=== PATIENT | female | born 1950 | race Caucasian/White ===

== ENCOUNTER 2018-09-03 17:06 | Inpatient (IN) | payer OTHER, SELFPAY ==
[2018-09-03] VITALS (12 sets, daily range): BP systolic 94–116; BP diastolic 66–84; PULSE 92–143; RESP 18–36; TEMP 36.8–37.2; O2SAT 84–95; BMI 25.2; BMI 25.4
--- NOTE | 2018-09-03 17:22 | RAD_ITS ---
STUDY: X-RAY CHEST REASON FOR EXAM: Female, 67 years old. Cough and shortness of breath. TECHNIQUE: 2 views COMPARISON: None. FINDINGS: Lung martinez are generally hyperexpanded with diffuse interstitial changes more prominent in the mid and lower lung zones. Negative for major consolidation. Negative for substantial pleural effusion. Cardiomegaly. Normal mediastinum and rosa. Normal visualized pulmonary arteries. There is atherosclerotic calcification of the aortic arch with tortuosity. There is demineralization of the osseous structures. Increased thoracic kyphosis. Normal visualized ribs, clavicles, and shoulders. There is no demonstrated abnormality of the visualized soft tissue structures of the upper abdomen. RAD/Chest PA and Lateral IMPRESSION: Cardiomegaly with diffuse mild interstitial changes of an acute or chronic nature without pulmonary venous congestion or pleural effusion. Otherwise negative for major consolidation or focal atelectasis. Atherosclerotic changes of the thoracic aorta. Severely demineralized osseous structures and increased thoracic kyphosis. Electronically Signed: Renita Shane MD at 18:40 EST , Service support ,
--- NOTE | 2018-09-03 17:22 | EKG12_ITS ---
Test Reason : SOB Blood Pressure : / mmHG Vent. Rate : 140 BPM Atrial Rate : 136 BPM P-R Int : 000 ms QRS Dur : 084 ms QT Int : 272 ms P-R-T Axes : 000 038 151 degrees QTc Int : 415 ms Atrial fibrillation with rapid ventricular response Nonspecific ST and T wave abnormality Abnormal ECG No previous ECGs available Confirmed by CITLALI BULLOCK, MIMI ([id number]), editor in chief newspaper CALIN MILLER ([id number]) on 09/14/2018 5:32:59 PM Referred By: Bela Khanna Confirmed By:MIMI GODWIN MD
--- NOTE | 2018-09-03 17:38 | ED.VISSUMM ---
- ER Visit Summary Date of Service: 09/03/18 Chief Complaint: Cough and shortness of breath History of Present Illness: The patient is a 67 F who presents with cough and shortness of breath that has been getting worse over the past 3 days. Patient states her breathing is worse with any exertion. Patient admits to a cough with some white sputum. Patient also admits to some rhinorrhea. Patient denies any fevers or chills. Patient denies any chest pain. Patient denies any nausea or vomiting. Patient denies any sore throat or rhinorrhea. Patient saw her primary care physician today who referred her to the emergency department. Physical Examination: Vital signs are stable except for tachycardia of 137 and a blood pressure of 94/66. Patient's pulse oximeter is 84% on room air. Patient is in no acute distress. Oral mucosa is pink and moist. Neck is supple. Trachea is midline. There is no JVD noted. Heart was irregularly irregular and tachycardic. Lungs showed bilateral rales. Abdomen is soft and nontender. Bowel sounds are normal. Extremities are intact. There is no edema or calf tenderness noted. Hernial nerves II through XII are intact. There are no focal motor or sensory deficits noted. The remaining physical exam is within normal limits. Test Results: Chest x-ray shows interstitial changes without any definite infiltrate. CBC shows a leukocytosis of 32.8. Lactate was slightly elevated at 2.2. Basic metabolic profile was essentially within normal limits. EKG showed atrial fibrillation with a rate of 140. There are no acute ST or T wave changes. Emergency Department Course and Treatment: Patient was given a 30 cc/kg bolus of normal saline. Patient was started on Levaquin. Case was discussed with the hospitalist. She will be in to evaluate the patient. Patient will be admitted to the hospital. Patient and family understood and were agreeable with the plan. All questions were answered. Disposition: Admit to hospital Impression: 1. Severe sepsis 2. Clinical pneumonia This note was generated with Query Hunteration software. It may contain incorrect words, spelling, and punctuation that were not noted in review of the chart prior to signing Capacity - Capacity Assessment Tool Can the patient make a choice & communicate that choice?: Yes Can the patient understand benefits, risks and alternatives?: Yes Can the patient make a logical, rational choice?: Yes Is the choice the patient makes consistent w/ their values?: Yes Is there an impending, emergent risk to the patient?: No Is there a Surrogate Available?: Yes i.e. close relative (spouse, child, parent, sibling)?: Yes ED Disposition - Plan for ED Patient: Disposition: Acute Care Hospital [facility] Diagnosis: Severe sepsis, Community acquired pneumonia Referrals: Lobo Spann [Primary Care Provider] -
[2018-09-03] MEDS: 0.9% Normal Saline 1,000 ML IV.SOLN. 1877.88 ML IV (18:08)
[2018-09-03 18:57] LABS: ALB/GLOB Ratio 0.8 RATIO (0.9-2.4); AST(SGOT) 28 U/L (15-37); Alanine Aminotransfer ALT/SGPT 25 U/L (13-56); Albumin, Serum 3.6 g/dL (3.2-5.0); Alkaline Phosphatase 121 U/L (45-117); Anion Gap 10 (5-15); BUN 32 mg/dL (7-18); BUN/Creat Ratio 36.1 RATIO (10-20); Calcium,Total 8.7 mg/dL (8.5-10.1); Chloride 102 mmol/L (98-107); Creatinine, Serum 0.89 mg/dL (0.55-1.02); EST Glomerular Filtration Rate 67 mL/min (>60); Est Glom Filt Rate - Afr Amer 82 mL/min (>60); Estimated Creatinine Clearance 48.51 ml/min; Globulin 4.3 g/dL (2.2-4.2); Glucose 109 mg/dL (74-106); Protein, Total 7.9 g/dL (6.4-8.2); Sodium Level 136 mmol/L (136-145)
[2018-09-03 18:58] LABS: Absolute Lymphocyte Count 1.56 X10^3/ul (0.83-4.51); Absolute Neutrophil Count 29.2 X10^3/uL (2.0-7.7); Basophil% 0.3 % (0-1); Eosinophil# 0.02 X10^3/uL; Eosinophils% 0.1 % (0-5); Hematocrit 41.4 % (37-47); Hemoglobin 11.6 g/dl (12.0-15.0); Lymphocyte # 1.56 X10^3/ul (4.0); Lymphocyte % 4.8 % (19-41); Mean Corpuscular Hgb 21.7 pg (27.0-32.0); Mean Corpuscular Volume 77.5 fL (81-99); Mean Platelet Vol. 11.4 fl (6.2-12.0); Monocyte# 1.63 X10^3/uL; Neutrophil # 29.22 X10^3/uL (2.7-7.7); Neutrophil % 88.9 % (47-70); Platelet Count 512 K/mm3 (150-450); RBC Distribution Width CV 18.5 % (11.6-14.6); RBC Distribution Width SD 50.6 fl (35.1-43.9); Red Blood Count 5.34 M/mm3 (4.2-5.4)
--- NOTE | 2018-09-03 18:59 | ED.RN ---
WBC 32.[address] DR ALDRICH AWARE
[2018-09-03 19:01] LABS: Differential Indicated SCAN CRITERIA MET; POSITIVE COUNT YES; POSITIVE DIFFERENTIAL YES; POSITIVE MORPHOLOGY YES; White Blood Count 32.8 K/mm3 (4.4-11.0)
[2018-09-03 19:02] LABS: Lactic Acid 2.2 mmol/L (0.4-2.0)
--- NOTE | 2018-09-03 19:03 | ED.RN ---
DR ALDRICH NOTIFIED OF LACTIC ACID RESULTS
[2018-09-03 19:36] LABS: Anisocytosis 1+; Hypochromasia 2+; Platelet Estimate SLT INC (ADEQ)
--- NOTE | 2018-09-03 19:40 | PCM.HP.STD ---
Problem List (1) Severe sepsis Status: Acute (2) Acute respiratory failure with hypoxia Status: Acute (3) Community acquired pneumonia Status: Acute Qualifiers: Laterality: unspecified laterality Qualified Code(s): J18.9 - Pneumonia, unspecified organism (4) Chronic atrial fibrillation Status: Chronic (5) History of GI bleed Status: Chronic (6) Polycythemia Status: Chronic History of Present Illness Date of Admission: 09/03/18 Chief Complaint: Dyspnea, cough, fatigue The patient is a 67 y/o F w/ PMHx: Chronic atrial fibrillation previously on coumadin but history of GI Bleed 1 year prior w/ discontinuation, Polycythemia following w/ Dr. Neves w/ blood draw q 4 weeks next due Friday who presents to the [facility] ED on 09/03/18 with history of progressively worsening cough congestion and dyspnea as well as fatigue and malaise with fevers and chills progressively worsening over the last 3 days with evaluation per her primary care physician on day of ED presentation and referral to the ED. The ED workup included T 99, heart rate 137, respiratory rate initially 22-27 with 84% on room air with improvement to--> 84% on 4 L nasal cannula, CBC with WBC 32.8, hemoglobin 11.6, platelet 512 with left shift, coags pending, CMP with BUN/Cr 32/0/89, glucose 109, lactic acid 2.2, total bilirubin 1.10, alk phos 121, EKG with chronic atrial fibrillation with increased rate, rapid influenza negative, blood culture x2 pending per ED, chest x-ray with cardiomegaly with diffuse mild interstitial changes unclear if acute versus chronic without pulmonary venous congestion or pleural effusions with no obvious consolidation with severely demineralized osseous structures and increased thoracic kyphosis. Given patient presentation and examination with bilateral coarse rhonchorous breath sounds, decreased bases, turning pulmonary appearance treated as clinical pneumonia severe sepsis with administration of Levaquin, Tylenol, normal saline 30 mg/kg bolus in the ED. Past Medical History Past Medical History (Chronic Problems): Chronic Problems Chronic atrial fibrillation (Chronic) History of GI bleed (Chronic) Polycythemia (Chronic) Allergies No Known Allergies Allergy (Verified 09/03/18 17:09) Home Medications: Ambulatory Orders Medication Instructions Recorded Cbd Oil 1 each PO DAILY 09/03/18 Furosemide [Lasix] 20 mg PO DAILY 09/03/18 [place] 1 each PO DAILY 09/03/18 Hydroxyurea 500 mg PO DAILY 09/03/18 Menopause Formula 1 each PO DAILY 09/03/18 Metoprolol Tartrate [Lopressor 50 mg PO BID 09/03/18 (beta pippa)] [place]-3 2 cap PO BID 09/03/18 Ubidecarenone 1 cap PO DAILY 09/03/18 Vitamin E 1 each PO DAILY 09/03/18 Surgical History: - - Hysterotomy with bilateral salpingo-oophorectomy. Psychiatric History: No pertinent psych hx [employer] History: uterine fibroids - History of uterine fibroids status post hysterectomy with bilateral salpingo-nephrectomy. Lives: With Family Smoking Status: Never smoker Tobacco Use: Non-smoker Alcohol: None Drugs: None - *Family History Maternal History Items: - - Patient notes a maternal family history of heart disease, ID with at 89 secondary to sequelae of massive ID. Paternal History Items: - - Patient notes a paternal family history of heart disease. Review of Systems Constitutional: Reports: Anorexia, Chills, Fever, Malaise, Weakness, Fatigue. Denies: Weight Change HEENT: Reports: Nasal Congestion, Post Nasal Drip, Sinus Congestion, Sinus Drainage, Sore Throat. Denies: Head Aches Cardiovascular: Denies: Chest Pain, Palpitations Respiratory: Reports: Cough, Shortness of Breath, Shortness of breath at rest, Shortness of breath upon exertion, Sputum production. Denies: Wheezing Gastrointestinal: Denies: Abdominal Pain, Nausea, Vomiting Genitourinary: Denies: Dysuria Musculoskeletal: Reports: Joint Pain. Denies: Joint Tenderness Skin: Denies: Rash, Wounds Neurological: Denies: Numbness, Tingling, Focal weakness Psychiatric: Denies: Anxiety, Depression, Homicidal Ideations, Suicidal Ideations Hematologic/ Lymphatic: Reports: Anemia. Denies: Easy Bruising, Easy Bleeding VTE Information - Inpt Only VTE Present on Admission: No VTE Mechan Device Prophylaxis: SCD's VTE Pharm Prophylaxis ordered?: Yes Patient Problems: Active and Suspected Problems Severe sepsis (Acute) Community acquired pneumonia (Acute) Acute respiratory failure with hypoxia (Acute) Subjective: Seated upright in the ED bed, fatigued appearance, improved from initial presentation with decreased respiratory rate although still tachycardic, no current accessory muscle usage but was noted to be using accessory muscles upon initial presentation. Objective: Physical Examination: General: awake, alert, oriented x 3 and cooperative, seated upright in the ED bed fatigued, ill-appearing, notes improved since initial presentation although still notably tachycardic but respiratory rate has improved and patient has less accessory muscle usage. Skin: normal color, turgor, no icterus, cyanosis. HEENT: AT/NC, EOMI, PERRLA, dry MM, no carotid bruits or JVD noted. Lungs: Diminished breath sounds throughout, greater bilateral bases, coarse, rhonchorous right greater than left, increased effort although respiratory rate decreased from prior, improved but still ongoing mild accessory muscle usage, no wheezing. Heart: Regular, tachycardic; no gallop, rub audible. Abdomen: soft, NTTP, ND, normal BS, no HSM. Extremities: no cyanosis, clubbing, or edema. Neurological: patient awake, alert, oriented x 3; cognitive function intact; pupils equally reactive to light and accomodation; cranial nerves II-XII grossly normal, moving all 4 extremities, no focal deficits, strength severely globally decreased secondary to acute presentation. Psychiatric: affect appears fatigued, ill-appearing, no acute evidence of depressive or anxiety feelings. - Physical Exam Vital Signs Temp Pulse Resp BP Pulse Ox 99 F 119 H 36 H 111/79 95 09/03/18 19:00 09/03/18 19:00 09/03/18 19:00 09/03/18 19:00 09/03/18 19:00 Oxygen Flow Rate (L/min) 4 Oxygen Delivery Method Nasal Cannula Weight: 138 lb Body Mass Index (BMI) 25.2 Microbiology Past 72 Hours 09/03/18 18:23 Influenza Types A,B Direct FA (COLIN) - Final Mucosa - Nasopharyngeal Laboratory Tests Past 24 Hrs 09/03/18 09/03/18 09/03/18 18:10 18:15 18:15 WBC 32.8 H* RBC 5.34 Hgb 11.6 L Hct 41.4 MCV 77.5 L MCH 21.7 L MCHC 28.0 L RDW 18.5 H RDW Differential 50.6 H Plt Count 512 H MPV 11.4 Immature Gran % (Auto) 0.900 Neut % (Auto) 88.9 H Lymph % (Auto) 4.8 L [place] % (Auto) 5.0 Eos % (Auto) 0.1 Baso % (Auto) 0.3 Absolute Neuts (auto) 29.2 H Absolute Lymphs (auto) 1.56 Total Counted Not Reportable Differential Comment Diff Path Review May foll Platelet Estimate SLT INC Hypochromasia 2+ Anisocytosis 1+ PT Pending INR Pending APTT Pending Sodium Potassium Chloride Carbon Dioxide Anion Gap BUN Creatinine Estim Creat Clear Calc Est GFR (MDRD) Af Amer Est GFR (MDRD) Non-Af BUN/Creatinine Ratio Glucose Lactic Acid 2.2 H Calcium Total Bilirubin AST ALT Alkaline Phosphatase Total Protein Albumin Globulin Albumin/Globulin Ratio 09/03/18 18:15 WBC RBC Hgb Hct MCV MCH MCHC RDW RDW Differential Plt Count MPV Immature Gran % (Auto) Neut % (Auto) Lymph % (Auto) [place] % (Auto) Eos % (Auto) Baso % (Auto) Absolute Neuts (auto) Absolute Lymphs (auto) Total Counted Differential Comment Diff Path Review Platelet Estimate Hypochromasia Anisocytosis PT INR APTT Sodium 136 Potassium 4.0 Chloride 102 Carbon Dioxide 24.0 Anion Gap 10 BUN 32 H Creatinine 0.89 Estim Creat Clear Calc 48.51 Est GFR (MDRD) Af Amer 82 Est GFR (MDRD) Non-Af 67 BUN/Creatinine Ratio 36.1 H Glucose 109 H Lactic Acid Calcium 8.7 Total Bilirubin 1.10 H AST 28 ALT 25 Alkaline Phosphatase 121 H Total Protein 7.9 Albumin 3.6 Globulin 4.3 H Albumin/Globulin Ratio 0.8 L Assessment/Plan All Active Problems Severe sepsis (Acute) Community acquired pneumonia (Acute) Acute respiratory failure with hypoxia (Acute) The patient is a 67 y/o F w/ PMHx: Chronic atrial fibrillation previously on coumadin but history of GI Bleed 1 year prior w/ discontinuation, Polycythemia following w/ Dr. Neves w/ blood draw q 4 weeks next due Friday who presents to the [facility] ED on 09/03/18 with history of progressively worsening cough congestion and dyspnea as well as fatigue and malaise with fevers and chills progressively worsening over the last 3 days with evaluation per her primary care physician on day of ED presentation and referral to the ED. The (1) Acute Severe Sepsis secondary to Acute Hypoxic Respiratory Failure secondary to Community Acquired Pneumonia, Possible Bronchitis: ED workup included T 99, heart rate 137, respiratory rate initially 22-27 with 84% on room air with improvement to--> 84% on 4 L nasal cannula, CBC with WBC 32.8, hemoglobin 11.6, platelet 512 with left shift, coags pending, CMP with BUN/Cr 32/0/89, glucose 109, lactic acid 2.2, total bilirubin 1.10, alk phos 121, EKG with chronic atrial fibrillation with increased rate, rapid influenza negative, blood culture x2 pending per ED, chest x-ray with cardiomegaly with diffuse mild interstitial changes unclear if acute versus chronic without pulmonary venous congestion or pleural effusions with no obvious consolidation with severely demineralized osseous structures and increased thoracic kyphosis. Given patient presentation and examination with bilateral coarse rhonchorous breath sounds, decreased bases, turning pulmonary appearance treated as clinical pneumonia severe sepsis with administration of Levaquin, Tylenol, normal saline 30 mg/kg bolus in the ED. Will admit to PCU given ill presentation for more close monitoring, maintain on oxygen with wean as tolerated to room air, continue ATC duonebs, PRN albuterol, maintained on IV Rocephin and Azithromycin, HOB, IS parameters w/ pending sputum cultures and urine antigens as well as respiratory viral panel. Bld cx x 2 obtained in the ED. Will need to obtain oxygenation trial for discharge planning once appropriate. PT, OT, CM consulted for discharge planning. (2) Chronic Atrial Fibrillation: Technically rate uncontrolled initially, improved w/ IVFs, continue home metoprolol, PRN lopressor, not anticoagulated secondary to history of GI bleed, continue asa only. (3) Polycythemia: Admission CBC with WBC 32.8, hemoglobin 11.6, platelet 512 with left shift, following w/ Dr. Neves w/ blood draw q 4 weeks next due Friday, trend CBC. (4) DVT Prophylaxis: SCDs, lovenox. Code Visit Inpatient E&M: 60934 Init Hosp L3
[2018-09-03 19:47] LABS: International Normalized Ratio 1.3; Prothrombin Time (Protime)PT. 16.4 SECONDS (11.7-14.9)
[2018-09-03 19:48] LABS: Partial Thromboplast Time 43.3 Seconds (24.1-36.2)
[2018-09-03] MEDS: levoFLOXacin IV 750 MG/150 ML BAG 150 MG IV (19:52)
[2018-09-03 20:51] LABS: Magnesium 1.9 mg/dL (1.6-2.6)
[2018-09-03 21:40] LABS: Bacteria 0 SEEN /hpf (None Seen); Mucous, Urine 0 SEEN /hpf (<or=2+); Red Blood Cells-Urine 0 SEEN /hpf (0-5)
[2018-09-03 21:44] LABS: Color, Urine Yellow (Yellow); Glucose, Dipstick Normal (Normal); Ketone-Dipstick 15 mg/dl (Negative); Leukocyte Esterase-Dipstick 500 /ul (Negative); Nitrite-Dipstick Negative (Negative); Occult Blood-Urine 10 /ul (Negative); Protein-Dipstick 100 mg/dl (Negative); Specific Gravity, Urine 1.025 (1.002-1.030); Urine Clarity Clear (Clear); Urine Urobilinogen 1 mg/dl (Normal)
[2018-09-03 21:52] LABS: Urine Bilirubin Dipstick 1 mg/dL (Negative)
[2018-09-03] MEDS: Ipratropium/Albuterol Sulfate 3 ML AMPUL.NEB INHALATION (21:55)
[2018-09-03 22:01] LABS: White Blood Cells 10-25 SEEN /hpf (0-5)
[2018-09-03 22:02] LABS: Hyaline Cast 5-10 SEEN /lpf (0-5); Squamous Epithelial Cells - UA 0-5 SEEN /hpf (5-10)
[2018-09-03] MEDS: Metoprolol Tartrate 50 MG Tablet PO (22:20)
[2018-09-03] MEDS: guaiFENesin 1,200 MG Tablet 1200 MG PO (22:20)
[2018-09-03] MEDS: 0.9% Normal Saline 1,000 ML 125 ML IV (22:20)
[2018-09-03 22:21] LABS: Reflex Lactate? Y
[2018-09-03] MEDS: Famotidine 20 MG Tablet PO (22:21)
[2018-09-03 23:43] LABS: Lactic Acid 1.5 mmol/L (0.4-2.0)
[2018-09-04] VITALS (21 sets, daily range): BP systolic 98–114; BP diastolic 64–76; PULSE 76–151; RESP 16–28; TEMP 36.4–36.8; O2SAT 94–97
[2018-09-04] MEDS: Ipratropium/Albuterol Sulfate 3 ML AMPUL.NEB INHALATION ×4 (03:19→19:11)
[2018-09-04] MEDS: 0.9% Normal Saline 1,000 ML 125 ML IV ×2 (05:30→15:01)
[2018-09-04] MEDS: guaiFENesin 1,200 MG Tablet 1200 MG PO ×2 (09:20→21:24)
[2018-09-04] MEDS: Aspirin 81 MG TAB.CHEW PO (09:20)
[2018-09-04] MEDS: Metoprolol Tartrate 50 MG Tablet PO ×2 (09:20→22:45)
[2018-09-04] MEDS: Ceftriaxone 1 GM/50 ML BAG IV (09:20)
[2018-09-04] MEDS: Famotidine 20 MG Tablet PO ×2 (09:20→21:24)
[2018-09-04] MEDS: Enoxaparin 40 MG/0.4 ML Syringe SC (09:23)
--- NOTE | 2018-09-04 10:08 | PCM.PN.HOSP ---
Patient Problems: Active and Suspected Problems Severe sepsis (Acute) Community acquired pneumonia (Acute) Acute respiratory failure with hypoxia (Acute) Subjective: Patient is a 67-year-old lady who was sent to the ED by the PCP on account of progressive dyspnea with cough and generalized malaise. An assessment of severe sepsis with acute hypoxic respiratory failure secondary to bronchitis was made admitted to monitored bed for further management. Patient respiratory panel came back positive for Human [place] Objective: GENERAL: Patient appears ill looking HEENT: Atraumatic; moist oral mucosa EYES; Anicteric, Normal Conjunctiva NECK; supple, normal thyroid, no distended JVD. RESPIRATORY: Diminished to auscultation bilaterally, CARDIOVASCULAR: Regular S1 S2, no audible murmurs GI: soft, non-tender, normoactive bowel sounds, : No Renal angle tenderness; EXTREMITIES: No edema, no clubbing, no cyanosis. MUSCULOSKELETAL: No Joint Tenderness; no muscle waisting NEURO: Awake; no lateralizing signs. SKIN: No Rash PSYCH; affect is flat Vitals/I&O's: Vital Signs Temp Pulse Resp BP Pulse Ox 97.6 F L 108 H 16 101/65 97 09/04/18 09:00 09/04/18 09:20 09/04/18 09:00 09/04/18 09:00 09/04/18 09:00 Oxygen Flow Rate (L/min) 2 Oxygen Delivery Method Nasal Cannula Weight: 63 kg Body Mass Index (BMI) 25.4 Intake and Output for Last 24 Hours 09/02/18 09/03/18 09/04/18 23:59 23:59 23:59 Intake Total 799 / 799 670 / 670 Balance 799 / 799 670 / 670 Microbiology Past 72 Hours 09/03/18 22:05 Mucosa - Nose Respiratory Panel (PCR) - Final Human [place] 09/03/18 21:30 Urine, Clean Catch Streptococcus pneumoniae Antigen (M - Final 09/03/18 21:30 Urine, Clean Catch Legionella Antigen - Final 09/03/18 18:23 Mucosa - Nasopharyngeal Influenza Types A,B Direct FA ([facility]) - Final Laboratory Results 09/03/18 18:10: Lactic Acid 2.2 H 09/03/18 18:15: WBC 32.8 H*, RBC 5.34, Hgb 11.6 L, Hct 41.4, MCV 77.5 L, MCH 21.7 L, MCHC 28.0 L, RDW 18.5 H, RDW Differential 50.6 H, Plt Count 512 H, MPV 11.4, Immature Gran % (Auto) 0.900, Neut % (Auto) 88.9 H, Lymph % (Auto) 4.8 L, [place] % (Auto) 5.0, Eos % (Auto) 0.1, Baso % (Auto) 0.3, Absolute Neuts (auto) 29.2 H, Absolute Lymphs (auto) 1.56, Total Counted Not Reportable, Differential Comment , Diff Path Review November foll, Platelet Estimate SLT INC, Hypochromasia 2+, Anisocytosis 1+ 09/03/18 18:15: PT 16.4 H, INR 1.3, APTT 43.3 H 09/03/18 18:15: Sodium 136, Potassium 4.0, Chloride 102, Carbon Dioxide 24.0, Anion Gap 10, BUN 32 H, Creatinine 0.89, Estim Creat Clear Calc 48.51, Est GFR (MDRD) Af Amer 82, Est GFR (MDRD) Non-Af 67, BUN/Creatinine Ratio 36.1 H, Glucose 109 H, Calcium 8.7, Total Bilirubin 1.10 H, AST 28, ALT 25, Alkaline Phosphatase 121 H, Total Protein 7.9, Albumin 3.6, Globulin 4.3 H, Albumin/Globulin Ratio 0.8 L 09/03/18 18:15: Magnesium 1.9 09/03/18 21:30: Urine Color Yellow, Urine Clarity Clear, Urine pH 5.0, Ur Specific [place] 1.025, Urine Protein 100 H, Urine Glucose (UA) Normal, Urine Ketones 15 H, Urine Occult Blood 10 H, Urine Nitrite Negative, Urine Bilirubin 1 H, Urine Urobilinogen 1 H, Ur Leukocyte Esterase 500 H, Urine RBC 0 SEEN, Urine WBC 10-25 SEEN, Ur Squamous Epith Cells 0-5 SEEN, Urine Bacteria 0 SEEN, Hyaline Casts 5-10 SEEN, Urine Mucus 0 SEEN 09/03/18 23:10: Lactic Acid 1.5 Current Medications Acetaminophen (Tylenol) 650 mg PO Q6H PRN PRN PRN Reason: Non-cardiac pain (mod-severe) Al Hydroxide/Mg Hydroxide (Mylanta Ii) 30 ml PO Q6H PRN PRN PRN Reason: Gastric burning Albuterol Sulfate (Ventolin Aerosols) 2.5 mg INHALATION Q2H PRN PRN PRN Reason: SHORTNESS OF BREATH Albuterol/Ipratropium (Duoneb) 3 ml INHALATION Q4HWA.RT [facility] Last Admin: 09/04/18 06:46 Dose: 3 ml Aspirin (Aspirin, Baby) 81 mg PO DAILY@0800 [facility] Last Admin: 09/04/18 09:20 Dose: 81 mg Enoxaparin Sodium (Lovenox) 40 mg SC DAILY@1000 [facility] Last Admin: 09/04/18 09:23 Dose: 40 mg Famotidine (Pepcid) 20 mg PO BID [facility] Last Admin: 09/04/18 09:20 Dose: 20 mg Guaifenesin (Mucinex) 1,200 mg PO BID [facility] Last Admin: 09/04/18 09:20 Dose: 1,200 mg Hydralazine HCl (Apresoline Iv) 10 mg IV Q4H PRN PRN PRN Reason: SBP > 160 Sodium Chloride () 1,000 mls @ 125 mls/hr IV .Q8H [facility] Last Admin: 09/04/18 05:30 Dose: 125 mls/hr Azithromycin 500 mg/ Dextrose 255 mls @ 250 mls/hr IV Q24 [facility] Stop: 09/06/18 11:02 Ceftriaxone Sodium (Rocephin) 1 gm in 50 mls @ 100 mls/hr IV Q24H [facility] Last Admin: 09/04/18 09:20 Dose: 100 mls/hr Magnesium Hydroxide (Milk Of Magnesia) 30 ml PO DAILY PRN PRN Reason: Constipation Metoprolol Tartrate (Lopressor (Beta Matt)) 50 mg PO BID [facility] Last Admin: 09/04/18 09:20 Dose: 50 mg Metoprolol Tartrate (Lopressor (Beta Matt)) 5 mg IV Q4H PRN PRN PRN Reason: HR > 120 sustained Ondansetron HCl (Zofran) 4 mg IV Q8H PRN PRN PRN Reason: NAUSEA/VOMITING Sodium Chloride () 5 - 15 ml IV UD PRN PRN Reason: SALINE FLUSH Medical Necessity - Tobacco Use Smoking Status: Never smoker Tobacco Use: Non-smoker Assessment/Plan All Active Problems Severe sepsis (Acute) Community acquired pneumonia (Acute) Acute respiratory failure with hypoxia (Acute) Patient is a 67-year-old lady who was sent to the ED by the PCP on account of progressive dyspnea with cough and generalized malaise. An assessment of severe sepsis with acute hypoxic respiratory failure secondary to bronchitis was made admitted to monitored bed for further management. Patient respiratory panel came back positive for Human [place] 1. Severe sepsis secondary to acute viral bronchitis with Human [place] as well as acute cystitis. She has been admitted to a monitored bed being treated symptomatically. Empiric antibiotic treatment was initiated on admission with suspicion for community-acquired pneumonia 2. Acute hypoxic respiratory failure with significant tachypnea and hypoxia 84%, on room air when patient presented to the emergency department. Etiology is as discussed above. In addition to above treatment patient was placed on supplemental oxygen titrated to keep saturation greater than 90 3. Acute cystitis patient on Rocephin will follow up on results of urine cultures 4. Polycythemia per history hemoglobin on admission was 11.6 5. Leukocytosis questionable mild proliferative disorder in view of patient diagnosis of polycythemia old records requested from patient oncologist office 6. Hypertension-blood pressure controlled, home medications continued with dose adjustment as needed 7. Paroxysmal atrial fibrillation patient was previously on systemic anticoagulation discontinued in view of GI bleed 8. DVT prophylaxis SC Lovenox Active Medications Acetaminophen (Tylenol) 650 mg PO Q6H PRN PRN PRN Reason: Non-cardiac pain (mod-severe) Al Hydroxide/Mg Hydroxide (Mylanta Ii) 30 ml PO Q6H PRN PRN PRN Reason: Gastric burning Albuterol Sulfate (Ventolin Aerosols) 2.5 mg INHALATION Q2H PRN PRN PRN Reason: SHORTNESS OF BREATH Albuterol/Ipratropium (Duoneb) 3 ml INHALATION Q4HWA.RT [facility] Last Admin: 09/04/18 06:46 Dose: 3 ml Aspirin (Aspirin, Baby) 81 mg PO DAILY@0800 [facility] Last Admin: 09/04/18 09:20 Dose: 81 mg Enoxaparin Sodium (Lovenox) 40 mg SC DAILY@1000 [facility] Last Admin: 09/04/18 09:23 Dose: 40 mg Famotidine (Pepcid) 20 mg PO BID [facility] Last Admin: 09/04/18 09:20 Dose: 20 mg Guaifenesin (Mucinex) 1,200 mg PO BID [facility] Last Admin: 09/04/18 09:20 Dose: 1,200 mg Hydralazine HCl (Apresoline Iv) 10 mg IV Q4H PRN PRN PRN Reason: SBP > 160 Sodium Chloride () 1,000 mls @ 125 mls/hr IV .Q8H [facility] Last Admin: 09/04/18 05:30 Dose: 125 mls/hr Azithromycin 500 mg/ Dextrose 255 mls @ 250 mls/hr IV Q24 [facility] Stop: 09/06/18 11:02 Ceftriaxone Sodium (Rocephin) 1 gm in 50 mls @ 100 mls/hr IV Q24H [facility] Last Admin: 09/04/18 09:20 Dose: 100 mls/hr Magnesium Hydroxide (Milk Of Magnesia) 30 ml PO DAILY PRN PRN Reason: Constipation Metoprolol Tartrate (Lopressor (Beta Matt)) 50 mg PO BID [facility] Last Admin: 09/04/18 09:20 Dose: 50 mg Metoprolol Tartrate (Lopressor (Beta Matt)) 5 mg IV Q4H PRN PRN PRN Reason: HR > 120 sustained Ondansetron HCl (Zofran) 4 mg IV Q8H PRN PRN PRN Reason: NAUSEA/VOMITING Sodium Chloride () 5 - 15 ml IV UD PRN PRN Reason: SALINE FLUSH Microbiology 09/03/18 22:05 Respiratory Panel (PCR) - Final Mucosa - Nose Human [place] 09/03/18 21:30 Streptococcus pneumoniae Antigen (M - Final Urine, Clean Catch 09/03/18 21:30 Legionella Antigen - Final Urine, Clean Catch 09/03/18 18:23 Influenza Types A,B Direct FA ([facility]) - Final Mucosa - Nasopharyngeal Clinical Impression(s) from Imaging Studies Chest X-Ray 09/03/18 17:22 IMPRESSION: Cardiomegaly with diffuse mild interstitial changes of an acute or chronic nature without pulmonary venous congestion or pleural effusion. Otherwise negative for major consolidation or focal atelectasis. Atherosclerotic changes of the thoracic aorta. Severely demineralized osseous structures and increased thoracic kyphosis. Electronically Signed: Renita Shane MD at 18:40 EST , Service support , Code Visit Inpatient E&M: 31039 [facility] Hosp L3
--- NOTE | 2018-09-04 10:36 | CASEMGMT ---
Addendum entered by [place] 09/04/18 10:56: Call placed to [facility]. Made aware pt does not have electricity but does have solar powered battery. They stated they have liquid O2 and pt would need to sign recurring form and that they would need to collect $245 at time of set up. They stated pt will be billed per pound along with rental fee. Green sheet placed on chart if pt would be discharged over the weekend. Original Note: RN CM BOND MANAGER CM to room to meet with patient for initial transition planning/care coordination assessment. RN ERIC introduced self and role at [facility]. Pt voices understanding and consents to assessment at this time. Pt resting in bed in no distress at this time. Pt is A/O at this time and answers all questions appropriately. Care providers, pharmacy, and demographics verified at this time. PCP: Lobo Spann Specialists: Sowmya Rn Cvicu. Ed[place], Oncologist. Preferred Pharmacy: [facility] [place] Insurance: [employer] Living Will/HPOA: [facility] does not have LW or HCPOA . [facility] at this time to complete paperwork. Provided information on advanced directives and given Social Service rac card with number to call if chooses in the future to utilize [facility] social work for advanced directive completion. Educated patient that, if patient so chooses, can come back to [facility] and meet with a SW as an outpatient to complete health care advanced directives. Patient voices understanding. LNOK: Daughter and son Living Arrangements: Lives in one-story home with a basement. [facility] has stairs with rails to the basement. 5 steps to enter into the home. has some difficulty with the stares d/t gets SOB d/t her A-Fib. Daughter lives with her. Son lives next door. Family supportive. Transportation: Hires drivers for transportation. DME: Does not have home O2. Has a nebulizer. Does not have electricity in the home. Uses solar powered battery. Pt states no need for further DME at this time. Currently on O2 @ 2L/M N/C. May need Home O2 qualification testing prior to discharge. Has no preference of DME company if would require oxygen. HHC/SNF: Has never used HHC or been to a SNF. Declines need for HHC. PT/OT evals pending. Pt wishes to return home and states has no concerns with going home at time of discharge. CM to follow any further discharge planning/needs. Pt voices no further concerns/needs at this time. Advised pt to ask for CM if any further questions/concerns/needs arise. Voices understanding. PLAN: Home with family support and discharge plans in place. Yoselyn DRISCOLL RN CM
[2018-09-04 13:12] LABS: Pathologist Review Reviewed
[2018-09-04 13:35] LABS: Absolute Lymphocyte Count 2.06 X10^3/ul (0.83-4.51); Absolute Neutrophil Count 26.2 X10^3/uL (2.0-7.7); Basophil# 0.24 X10^3/uL; Basophil% 0.8 % (0-1); Hematocrit 39.9 % (37-47); Lymphocyte # 2.06 X10^3/ul (4.0); Lymphocyte % 6.7 % (19-41); Monocyte# 1.58 X10^3/uL; Monocyte% 5.2 % (0-10); Neutrophil # 26.24 X10^3/uL (2.7-7.7); Neutrophil % 85.7 % (47-70)
[2018-09-04 13:37] LABS: Anion Gap 11 (5-15); BUN 26 mg/dL (7-18); BUN/Creat Ratio 26.2 RATIO (10-20); Calcium,Total 8.1 mg/dL (8.5-10.1); Chloride 106 mmol/L (98-107); Creatinine, Serum 0.99 mg/dL (0.55-1.02); EST Glomerular Filtration Rate 59 mL/min (>60); Est Glom Filt Rate - Afr Amer 72 mL/min (>60); Estimated Creatinine Clearance 43.61 ml/min; Glucose 181 mg/dL (74-106); Magnesium 1.9 mg/dL (1.6-2.6); Sodium Level 138 mmol/L (136-145)
[2018-09-04 13:38] LABS: Differential Indicated SCAN CRITERIA MET; Hemoglobin 10.8 g/dl (12.0-15.0); Mean Corp Hgb Conc 27.1 g/gl (32-36); Mean Corpuscular Hgb 21.6 pg (27.0-32.0); Mean Corpuscular Volume 79.8 fL (81-99); Mean Platelet Vol. 11.4 fl (6.2-12.0); POSITIVE COUNT YES; POSITIVE DIFFERENTIAL YES; POSITIVE MORPHOLOGY YES; Platelet Count 473 K/mm3 (150-450); RBC Distribution Width CV 18.5 % (11.6-14.6); RBC Distribution Width SD 52.4 fl (35.1-43.9)
[2018-09-04 13:40] LABS: White Blood Count 31.2 K/mm3 (4.4-11.0)
[2018-09-04 13:52] LABS: Thyroid Stim Hormone (TSH) 0.03 uIU/mL (0.358-3.74)
[2018-09-04 15:09] LABS: T4 Free Direct 1.62 ng/dL (0.76-1.46)
[2018-09-04 15:21] LABS: T3 Total - Triiodothyronine 0.67 ng/mL (0.6-1.81)
[2018-09-04] MEDS: Metoprolol Tartrate 5 MG/5 ML Vial IV (19:58)
[2018-09-04] MEDS: 0.9% NaCl Peripheral Flush Adult/Peds IV (20:00)
[2018-09-05] VITALS (21 sets, daily range): BP systolic 97–110; BP diastolic 64–78; PULSE 88–152; RESP 17–25; TEMP 35.9–36.7; O2SAT 88–96
--- NOTE | 2018-09-05 05:35 | RAD_ITS ---
STUDY: X-RAY CHEST REASON FOR EXAM: Female, 67 years old. Shortness of breath. TECHNIQUE: PA and lateral views of the chest. COMPARISON: PA and lateral chest x-ray September 03, 2018. FINDINGS: There is stable hyperinflation of the lungs, suggesting obstructive lung disease. Bibasilar peribronchial thickening again noted, likely chronic. No acute consolidation. There is no demonstrated pleural abnormality. There is stable mild cardiac enlargement. Normal mediastinum and rosa. Normal visualized biapical pulmonary arteries. There is stable mild atherosclerotic calcification of the aortic arch. There is demineralization of the osseous structures. There are stable mild degenerative changes of the visualized thoracic spine. Normal visualized ribs, clavicles, and shoulders. There is no demonstrated abnormality of the visualized soft tissue structures of the upper abdomen. RAD/Chest PA and Lateral IMPRESSION: 1. Hyperexpanded, consistent with obstructive pulmonary disease. There is persistent bibasilar peribronchial thickening consistent with acute or chronic reactive airways disease. 2. Stable mild cardiac enlargement. No pulmonary edema. Electronically Signed: Marshall Houser MD at 9:43 EST , Service support ,
[2018-09-05 06:14] LABS: Hematocrit 34.1 % (37-47); Hemoglobin 9.7 g/dl (12.0-15.0); Mean Corp Hgb Conc 28.4 g/gl (32-36); Mean Corpuscular Hgb 22.6 pg (27.0-32.0); Mean Corpuscular Volume 79.3 fL (81-99); Mean Platelet Vol. 11.2 fl (6.2-12.0); Platelet Count 449 K/mm3 (150-450); RBC Distribution Width CV 18.7 % (11.6-14.6); White Blood Count 20.3 K/mm3 (4.4-11.0)
[2018-09-05 06:35] LABS: Scan Indicated on CBC? Y/N NO
[2018-09-05 06:44] LABS: Anion Gap 8 (5-15); BUN 22 mg/dL (7-18); BUN/Creat Ratio 34.5 RATIO (10-20); Chloride 111 mmol/L (98-107); Creatinine, Serum 0.64 mg/dL (0.55-1.02); EST Glomerular Filtration Rate 99 mL/min (>60); Est Glom Filt Rate - Afr Amer 119 mL/min (>60); Estimated Creatinine Clearance 43.18 ml/min; Glucose 76 mg/dL (74-106); Potassium 3.7 mmol/L (3.5-5.1); Sodium Level 142 mmol/L (136-145)
[2018-09-05] MEDS: guaiFENesin 1,200 MG Tablet 1200 MG PO ×2 (09:08→22:23)
[2018-09-05] MEDS: Famotidine 20 MG Tablet PO ×2 (09:08→22:23)
[2018-09-05] MEDS: Aspirin 81 MG TAB.CHEW PO (09:08)
--- NOTE | 2018-09-05 09:10 | PN_ITS ---
Patient Problems: Active and Suspected Problems Severe sepsis (Acute) Community acquired pneumonia (Acute) Acute respiratory failure with hypoxia (Acute) Subjective: Patient still requiring high flow oxygen. Also went into bouts of A. fib with RVR with activity during the night requiring patient receiving metoprolol. Patient requested to be discharged home. Plan is to assess patient oxygen need. If she still requires oxygen my inclination would be to keep patient overnight otherwise she will be discharged home. WBC count trending down. Objective: GENERAL: Patient appears ill looking HEENT: Atraumatic; moist oral mucosa EYES; Anicteric, Normal Conjunctiva NECK; supple, normal thyroid, no distended JVD. RESPIRATORY: Diminished to auscultation bilaterally, bilateral rhonchi CARDIOVASCULAR: Irregular. GI: soft, non-tender, normoactive bowel sounds, : No Renal angle tenderness; EXTREMITIES: No edema, no clubbing, no cyanosis. MUSCULOSKELETAL: No Joint Tenderness; no muscle waisting NEURO: Awake; no lateralizing signs. SKIN: No Rash PSYCH; affect is flat Vitals/I&O's: Vital Signs Temp Pulse Resp BP Pulse Ox 97.7 F L 90 20 H 104/71 95 09/05/18 08:05 09/05/18 08:05 09/05/18 08:05 09/05/18 08:05 09/05/18 08:05 Oxygen Flow Rate (L/min) 2 Oxygen Delivery Method Nasal Cannula Weight: 63 kg Body Mass Index (BMI) 25.4 Intake and Output for Last 24 Hours 09/03/18 09/04/18 09/05/18 23:59 23:59 23:59 Intake Total 799 / 799 4031 / 4031 Balance 799 / 799 4031 / 4031 Microbiology Past 72 Hours 09/03/18 23:08 Sputum, Expectorated/Coughed Gram Stain - Final 09/03/18 23:08 Sputum, Expectorated/Coughed Respiratory Culture - Preliminary 09/03/18 21:30 Urine, Clean Catch Urine Culture - Final Mixed Gram Positive Organisms 09/03/18 22:05 Mucosa - Nose Respiratory Panel (PCR) - Final Human [place] 09/03/18 21:30 Urine, Clean Catch Streptococcus pneumoniae Antigen (M - Final 09/03/18 21:30 Urine, Clean Catch Legionella Antigen - Final 02/14/19 18:23 Mucosa - Nasopharyngeal Influenza Types A,B Direct FA ([facility]) - Final Laboratory Results 09/03/18 18:15: Diff Path Review Reviewed 09/03/18 18:15: Total T3 0.67 09/04/18 13:08: TSH 0.03 L 09/04/18 13:08: WBC 31.2 H*, RBC 5.00, Hgb 10.8 L, Hct 39.9, MCV 79.8 L, MCH 21.6 L, MCHC 27.1 L, RDW 18.5 H, RDW Differential 52.4 H, Plt Count 473 H, MPV 11.4, Immature Gran % (Auto) 0.600, Neut % (Auto) 85.7 H, Lymph % (Auto) 6.7 L, [place] % (Auto) 5.2, Eos % (Auto) 1.0, Baso % (Auto) 0.8, Absolute Neuts (auto) 26.2 H, Absolute Lymphs (auto) 2.06, Total Counted Not Reportable, Differential Comment , Diff Path Review May foll 09/04/18 13:08: Sodium 138, Potassium 4.0, Chloride 106, Carbon Dioxide 21.0, Anion Gap 11, BUN 26 H, Creatinine 0.99, Estim Creat Clear Calc 43.61, Est GFR (MDRD) Af Amer 72, Est GFR (MDRD) Non-Af 59 L, BUN/Creatinine Ratio 26.2 H, Glucose 181 H, Calcium 8.1 L, Magnesium 1.9 09/04/18 13:08: Free T4 1.62 H 09/05/18 05:16: WBC 20.3 H, RBC 4.30, Hgb 9.7 L, Hct 34.1 L, MCV 79.3 L, MCH 22.6 L, MCHC 28.4 L, RDW 18.7 H, RDW Differential 52.0 H, Plt Count 449, MPV 11.2 09/05/18 05:16: Sodium 142, Potassium 3.7, Chloride 111 H, Carbon Dioxide 23.0, Anion Gap 8, BUN 22 H, Creatinine 0.64, Estim Creat Clear Calc 43.18, Est GFR (MDRD) Af Amer 119, Est GFR (MDRD) Non-Af 99, BUN/Creatinine Ratio 34.5 H, Glucose 76, Calcium 8.0 L Current Medications Acetaminophen (Tylenol) 650 mg PO Q6H PRN PRN PRN Reason: Non-cardiac pain (mod-severe) Al Hydroxide/Mg Hydroxide (Mylanta Ii) 30 ml PO Q6H PRN PRN PRN Reason: Gastric burning Albuterol Sulfate (Ventolin Aerosols) 2.5 mg INHALATION Q2H PRN PRN PRN Reason: SHORTNESS OF BREATH Albuterol/Ipratropium (Duoneb) 3 ml INHALATION Q4HWA.RT [facility] Last Admin: 09/05/18 07:00 Dose: Not Given Aspirin (Aspirin, Baby) 81 mg PO DAILY@0800 [facility] Last Admin: 09/04/18 09:20 Dose: 81 mg Enoxaparin Sodium (Lovenox) 40 mg SC DAILY@1000 [facility] Last Admin: 09/04/18 09:23 Dose: 40 mg Famotidine (Pepcid) 20 mg PO BID [facility] Last Admin: 09/04/18 21:24 Dose: 20 mg Guaifenesin (Mucinex) 1,200 mg PO BID [facility] Last Admin: 09/04/18 21:24 Dose: 1,200 mg Hydralazine HCl (Apresoline Iv) 10 mg IV Q4H PRN PRN PRN Reason: SBP > 160 Azithromycin 500 mg/ Dextrose 255 mls @ 250 mls/hr IV Q24 [facility] Stop: 09/06/18 11:02 Last Admin: 09/04/18 11:00 Dose: 250 mls/hr Ceftriaxone Sodium (Rocephin) 1 gm in 50 mls @ 100 mls/hr IV Q24H [facility] Last Admin: 09/04/18 09:20 Dose: 100 mls/hr Magnesium Hydroxide (Milk Of Magnesia) 30 ml PO DAILY PRN PRN Reason: Constipation Metoprolol Tartrate (Lopressor (Beta Matt)) 50 mg PO BID [facility] Last Admin: 09/04/18 22:45 Dose: 50 mg Metoprolol Tartrate (Lopressor (Beta Matt)) 5 mg IV Q4H PRN PRN PRN Reason: HR > 120 sustained Last Admin: 09/04/18 19:58 Dose: 5 mg Ondansetron HCl (Zofran) 4 mg IV Q8H PRN PRN PRN Reason: NAUSEA/VOMITING Sodium Chloride () 5 - 15 ml IV UD PRN PRN Reason: SALINE FLUSH Last Admin: 09/04/18 20:00 Dose: 10 ml Medical Necessity - Tobacco Use Smoking Status: Never smoker Tobacco Use: Non-smoker Assessment/Plan All Active Problems Severe sepsis (Acute) Community acquired pneumonia (Acute) Acute respiratory failure with hypoxia (Acute) Patient is a 67-year-old lady who was sent to the ED by the PCP on account of progressive dyspnea with cough and generalized malaise. An assessment of severe sepsis with acute hypoxic respiratory failure secondary to bronchitis was made admitted to monitored bed for further management. Patient respiratory panel came back positive for Human [place] 1. Severe sepsis secondary to acute viral bronchitis with Human [place] as well as acute cystitis. She has been admitted to a monitored bed being treated symptomatically. Empiric antibiotic treatment was initiated on admission with suspicion for community-acquired pneumonia with patient improving clinically. 2. Acute hypoxic respiratory failure with significant tachypnea and hypoxia 84%, on room air when patient presented to the emergency department. Etiology is as discussed above. In addition to above treatment patient was placed on supplemental oxygen titrated to keep saturation greater than 90 3. Acute cystitis patient on Rocephin will follow up on results of urine cultures 4. Polycythemia per history hemoglobin on admission was 11.6 5. Leukocytosis questionable mild proliferative disorder in view of patient diagnosis of polycythemia old records requested from patient oncologist office 6. Hypertension-blood pressure controlled, home medications continued with dose adjustment as needed 7. Paroxysmal atrial fibrillation patient was previously on systemic anticoagulation discontinued in view of GI bleed and has had runs of A. fib with RVR. 8. DVT prophylaxis SC Lovenox Code Visit Inpatient E&M: 85023 Subs Hosp L2
[2018-09-05] MEDS: Metoprolol Tartrate 50 MG Tablet PO ×2 (09:11→22:23)
[2018-09-05] MEDS: Enoxaparin 40 MG/0.4 ML Syringe SC (09:12)
[2018-09-05] MEDS: Ceftriaxone 1 GM/50 ML BAG IV (09:13)
[2018-09-05] MEDS: Ipratropium/Albuterol Sulfate 3 ML AMPUL.NEB INHALATION ×2 (10:50→18:56)
--- NOTE | 2018-09-05 14:11 | NURSING ---
student nurse charting reviewed.
[2018-09-06] VITALS (10 sets, daily range): BP systolic 103–112; BP diastolic 63–82; PULSE 84–104; RESP 17–26; TEMP 35.9–36.2; O2SAT 93–96
[2018-09-06 04:25] LABS: Hematocrit 38.5 % (37-47); Hemoglobin 10.8 g/dl (12.0-15.0); Mean Corp Hgb Conc 28.1 g/gl (32-36); Mean Corpuscular Volume 78.6 fL (81-99); Mean Platelet Vol. 11.7 fl (6.2-12.0); Platelet Count 542 K/mm3 (150-450); RBC Distribution Width CV 19.2 % (11.6-14.6); RBC Distribution Width SD 52.2 fl (35.1-43.9); White Blood Count 21.9 K/mm3 (4.4-11.0)
[2018-09-06 04:34] LABS: Scan Indicated on CBC? Y/N NO
[2018-09-06 04:38] LABS: Anion Gap 8 (5-15); BUN 20 mg/dL (7-18); BUN/Creat Ratio 26.6 RATIO (10-20); Calcium,Total 8.2 mg/dL (8.5-10.1); Chloride 110 mmol/L (98-107); Creatinine, Serum 0.75 mg/dL (0.55-1.02); EST Glomerular Filtration Rate 81 mL/min (>60); Est Glom Filt Rate - Afr Amer 98 mL/min (>60); Estimated Creatinine Clearance 43.18 ml/min; Glucose 80 mg/dL (74-106); Potassium 3.5 mmol/L (3.5-5.1); Sodium Level 142 mmol/L (136-145)
--- NOTE | 2018-09-06 09:07 | PN_ITS ---
Patient Problems: Active and Suspected Problems Severe sepsis (Acute) Community acquired pneumonia (Acute) Acute respiratory failure with hypoxia (Acute) Subjective: Patient seen per nursing report desaturated during the night with oxygen dropping to the mid 80s and had to be placed back on supplemental oxygen. Patient urine antigen for Streptococcus pneumonia Ag came back positive. Objective: GENERAL: Patient appears ill looking HEENT: Atraumatic; moist oral mucosa EYES; Anicteric, Normal Conjunctiva NECK; supple, normal thyroid, no distended JVD. RESPIRATORY: Diminished to auscultation bilaterally, bilateral rhonchi CARDIOVASCULAR: Irregular. GI: soft, non-tender, normoactive bowel sounds, : No Renal angle tenderness; EXTREMITIES: No edema, no clubbing, no cyanosis. MUSCULOSKELETAL: No Joint Tenderness; no muscle waisting NEURO: Awake; no lateralizing signs. SKIN: No Rash PSYCH; affect is flat Vitals/I&O's: Vital Signs Temp Pulse Resp BP Pulse Ox 97.1 F L 99 19 H 107/73 96 09/06/18 04:42 09/06/18 07:25 09/06/18 04:42 09/06/18 04:42 09/06/18 07:06 Oxygen Flow Rate (L/min) [ 2 AMBULATION with Oxygen] Oxygen Flow Rate (L/min) [ 0 AMBULATING on Room Air] Oxygen Flow Rate (L/min) [At 0 REST on Room Air] Oxygen Flow Rate (L/min) 2 Oxygen Delivery Method Nasal Cannula Weight: 63 kg Body Mass Index (BMI) 25.4 Intake and Output for Last 24 Hours 09/04/18 09/05/18 09/06/18 23:59 23:59 23:59 Intake Total 4031 / 4031 2250 / 2250 50 / 50 Balance 4031 / 4031 2250 / 2250 50 / 50 Microbiology Past 72 Hours 09/03/18 23:08 Sputum, Expectorated/Coughed Gram Stain - Final 09/03/18 23:08 Sputum, Expectorated/Coughed Respiratory Culture - Final 09/03/18 18:15 Blood Culture (Wb) - Right Hand Blood Culture - Preliminary No growth in 48 hours. 09/03/18 18:15 Blood Culture (Wb) - Anticubital Left Blood Culture - Preliminary No growth in 48 hours. 09/03/18 21:30 Urine, Clean Catch Streptococcus pneumoniae Antigen (M - Final Streptococcus pneumonia Ag 09/03/18 21:30 Urine, Clean Catch Urine Culture - Final Mixed Gram Positive Organisms 09/03/18 22:05 Mucosa - Nose Respiratory Panel (PCR) - Final [place] 09/03/18 21:30 Urine, Clean Catch Legionella Antigen - Final 09/03/18 18:23 Mucosa - Nasopharyngeal Influenza Types A,B Direct FA (COLIN) - Final Laboratory Results 09/06/18 03:55: WBC 21.9 H, RBC 4.90, Hgb 10.8 L, Hct 38.5, MCV 78.6 L, MCH 22.0 L, MCHC 28.1 L, RDW 19.2 H, RDW Differential 52.2 H, Plt Count 542 H, MPV 11.7 09/06/18 03:55: Sodium 142, Potassium 3.5, Chloride 110 H, Carbon Dioxide 24.0, Anion Gap 8, BUN 20 H, Creatinine 0.75, Estim Creat Clear Calc 43.18, Est GFR (MDRD) Af Amer 98, Est GFR (MDRD) Non-Af 81, BUN/Creatinine Ratio 26.6 H, Glucose 80, Calcium 8.2 L 09/06/18 03:55: Magnesium 2.0 Current Medications Acetaminophen (Tylenol) 650 mg PO Q6H PRN PRN PRN Reason: Non-cardiac pain (mod-severe) Al Hydroxide/Mg Hydroxide (Mylanta Ii) 30 ml PO Q6H PRN PRN PRN Reason: Gastric burning Albuterol Sulfate (Ventolin Aerosols) 2.5 mg INHALATION Q2H PRN PRN PRN Reason: SHORTNESS OF BREATH Albuterol/Ipratropium (Duoneb) 3 ml INHALATION Q4HWA.RT REPLACED BY [facility] Last Admin: 09/06/18 07:06 Dose: Not Given Aspirin (Aspirin, Baby) 81 mg PO DAILY@0800 REPLACED BY [facility] Last Admin: 09/05/18 09:08 Dose: 81 mg Enoxaparin Sodium (Lovenox) 40 mg SC DAILY@1000 REPLACED BY [facility] Last Admin: 09/05/18 09:12 Dose: 40 mg Famotidine (Pepcid) 20 mg PO BID REPLACED BY [facility] Last Admin: 09/05/18 22:23 Dose: 20 mg Guaifenesin (Mucinex) 1,200 mg PO BID REPLACED BY [facility] Last Admin: 09/05/18 22:23 Dose: 1,200 mg Hydralazine HCl (Apresoline Iv) 10 mg IV Q4H PRN PRN PRN Reason: SBP > 160 Azithromycin 500 mg/ Dextrose 255 mls @ 250 mls/hr IV Q24 REPLACED BY [facility] Stop: 09/06/18 11:02 Last Admin: 09/05/18 10:25 Dose: 250 mls/hr Ceftriaxone Sodium (Rocephin) 1 gm in 50 mls @ 100 mls/hr IV Q24H REPLACED BY [facility] Last Admin: 09/05/18 09:13 Dose: 100 mls/hr Magnesium Hydroxide (Milk Of Magnesia) 30 ml PO DAILY PRN PRN Reason: Constipation Metoprolol Tartrate (Lopressor (Beta Matt)) 50 mg PO BID REPLACED BY [facility] Last Admin: 09/05/18 22:23 Dose: 50 mg Metoprolol Tartrate (Lopressor (Beta Matt)) 5 mg IV Q4H PRN PRN PRN Reason: HR > 120 sustained Last Admin: 09/04/18 19:58 Dose: 5 mg Ondansetron HCl (Zofran) 4 mg IV Q8H PRN PRN PRN Reason: NAUSEA/VOMITING Sodium Chloride () 5 - 15 ml IV UD PRN PRN Reason: SALINE FLUSH Last Admin: 09/04/18 20:00 Dose: 10 ml Medical Necessity - Tobacco Use Smoking Status: Never smoker Tobacco Use: Non-smoker Assessment/Plan All Active Problems Severe sepsis (Acute) Community acquired pneumonia (Acute) Acute respiratory failure with hypoxia (Acute) Patient is a 67-year-old lady who was sent to the ED by the PCP on account of progressive dyspnea with cough and generalized malaise. An assessment of severe sepsis with acute hypoxic respiratory failure secondary to bronchitis was made admitted to monitored bed for further management. Patient respiratory panel came back positive for [place] 1. Severe sepsis secondary to acute viral bronchitis with [place], community-acquired pneumonia with Streptococcus as well as acute cystitis. 2. Acute hypoxic respiratory failure with significant tachypnea and hypoxia 84%, on room air when patient presented to the emergency department. Etiology is as discussed above. In addition to above treatment patient was placed on supplemental oxygen titrated to keep saturation greater than 90 3. Pneumonia: secondary to streptococcus pneumonia. Placed on Rocephin and Zithromax and on oxygen titrated to keep also is greater than 90 4. Acute cystitis patient on Rocephin urine cultures grew mixed organisms. 5. Polycythemia per history hemoglobin on admission was 11.6 6. Hypertension-blood pressure controlled, home medications continued with dose adjustment as needed 7. Paroxysmal atrial fibrillation patient was previously on systemic anticoagulation discontinued in view of GI bleed and has had runs of A. fib with RVR. 8. DVT prophylaxis SC Lovenox Code Visit Inpatient E&M: 61522 Subs Hosp L2
[2018-09-06] MEDS: Famotidine 20 MG Tablet PO (10:46)
[2018-09-06] MEDS: guaiFENesin 1,200 MG Tablet 1200 MG PO (10:46)
[2018-09-06] MEDS: Metoprolol Tartrate 50 MG Tablet PO (10:46)
[2018-09-06] MEDS: Aspirin 81 MG TAB.CHEW PO (10:46)
[2018-09-06] MEDS: Enoxaparin 40 MG/0.4 ML Syringe SC (10:47)
[2018-09-06] MEDS: Ceftriaxone 1 GM/50 ML BAG IV (10:52)
[2018-09-06] MEDS: 0.9% NaCl Peripheral Flush Adult/Peds IV (10:52)
--- NOTE | 2018-09-06 11:37 | DCINST_ITS ---
- Discharge Diagnoses Current Active Problems: Current Active and Chronic Problems Severe sepsis (Acute) Community acquired pneumonia (Acute) Chronic atrial fibrillation (Chronic) History of GI bleed (Chronic) Polycythemia (Chronic) Acute respiratory failure with hypoxia (Acute) You will use the following diet at home:: No restrictions Discharge Activity: Return to Normal Activity Allergies/Adverse Reactions: Allergies No Known Allergies Allergy (Verified 09/03/18 17:09) Medications to take at Discharge Cbd Oil 1 each PO DAILY 09/03/18 Furosemide [Lasix] 20 mg PO DAILY 09/03/18 [place] 1 each PO DAILY 09/03/18 Hydroxyurea 500 mg PO DAILY 09/03/18 Menopause Formula 1 each PO DAILY 09/03/18 Metoprolol Tartrate [Lopressor (beta pippa)] 50 mg PO BID 09/03/18 [place]-3 2 cap PO BID 09/03/18 Ubidecarenone 1 cap PO DAILY 09/03/18 Vitamin E 1 each PO DAILY 09/03/18 Cefdinir [Omnicef [equiv]] 300 mg PO Q12H #10 capsule 09/06/18 Guaifenesin [Mucinex] 1,200 mg PO BID #14 tablet 09/06/18 The following prescriptions were given: Cefdinir [Omnicef [equiv]] 300 mg PO Q12H #10 capsule Guaifenesin [Mucinex] 1,200 mg PO BID #14 tablet Primary Care Physician: Lobo Spann [Primary Care Provider] - Please follow up with your Primary Care Physician in: in 5-7 days Test Results: Test results from this visit will be discussed in further detail at your follow- up appointment, if applicable. Proposed Discharge Date: 09/06/18
--- NOTE | 2018-09-06 11:39 | DS.PCM_ITS ---
Discharge Date and Diagnosis - Problem List Patient Problems: Active and Suspected Problems Severe sepsis (Acute) Community acquired pneumonia (Acute) Acute respiratory failure with hypoxia (Acute) Date of Admission: 09/03/18 Date of Discharge: 09/06/18 - Primary Discharge Diagnosis Active and Suspected Problems Severe sepsis (Acute) Community acquired pneumonia (Acute) Acute respiratory failure with hypoxia (Acute) - Secondary Discharge Diagnosis Chronic Problems Chronic atrial fibrillation (Chronic) History of GI bleed (Chronic) Polycythemia (Chronic) Hospital Course and Treatment Summary of Care Provided: The patient is a 67 year old F [] Patient Problems: Active and Suspected Problems Severe sepsis (Acute) Community acquired pneumonia (Acute) Acute respiratory failure with hypoxia (Acute) - Physical Exam Vital Signs Temp Pulse Resp BP Pulse Ox 96.6 F L 95 17 103/63 94 09/06/18 10:43 09/06/18 10:46 09/06/18 10:43 09/06/18 10:43 09/06/18 10:57 Oxygen Flow Rate (L/min) [ 0 AMBULATION with Oxygen] Oxygen Flow Rate (L/min) [ 0 AMBULATING on Room Air] Oxygen Flow Rate (L/min) [At 0 REST on Room Air] Oxygen Flow Rate (L/min) 2 Oxygen Delivery Method Room Air Weight: 63 kg Body Mass Index (BMI) 25.4 Intake and Output for Last 24 Hours 09/04/18 09/05/18 09/06/18 23:59 23:59 23:59 Intake Total 4031 / 4031 2250 / 2250 50 / 50 Balance 4031 / 4031 2250 / 2250 50 / 50 Microbiology Past 72 Hours 09/03/18 23:08 Gram Stain - Final Sputum, Expectorated/Coughed Respiratory Culture - Final 09/03/18 18:15 Blood Culture - Preliminary Blood Culture (Wb) - Right Hand No growth in 48 hours. 09/03/18 18:15 Blood Culture - Preliminary Blood Culture (Wb) - Anticubital Left No growth in 48 hours. 09/03/18 21:30 Streptococcus pneumoniae Antigen (M - Final Urine, Clean Catch Streptococcus pneumonia Ag 09/03/18 21:30 Urine Culture - Final Urine, Clean Catch Mixed Gram Positive Organisms 09/03/18 22:05 Respiratory Panel (PCR) - Final Mucosa - Nose [place] 09/03/18 21:30 Legionella Antigen - Final Urine, Clean Catch 09/03/18 18:23 Influenza Types A,B Direct FA (COLIN) - Final Mucosa - Nasopharyngeal Laboratory Tests Past 24 Hrs 09/06/18 09/06/18 09/06/18 03:55 03:55 03:55 WBC 21.9 H RBC 4.90 Hgb 10.8 L Hct 38.5 MCV 78.6 L MCH 22.0 L MCHC 28.1 L RDW 19.2 H RDW Differential 52.2 H Plt Count 542 H MPV 11.7 Sodium 142 Potassium 3.5 Chloride 110 H Carbon Dioxide 24.0 Anion Gap 8 BUN 20 H Creatinine 0.75 Estim Creat Clear Calc 43.18 Est GFR (MDRD) Af Amer 98 Est GFR (MDRD) Non-Af 81 BUN/Creatinine Ratio 26.6 H Glucose 80 Calcium 8.2 L Magnesium 2.0 Discharge Diet: No Restrictions Discharge Activity: Return to Normal Activity Home Medications: Medications to take at Discharge Cbd Oil 1 each PO DAILY 09/03/18 Furosemide [Lasix] 20 mg PO DAILY 09/03/18 [place] 1 each PO DAILY 09/03/18 Hydroxyurea 500 mg PO DAILY 09/03/18 Menopause Formula 1 each PO DAILY 09/03/18 Metoprolol Tartrate [Lopressor (beta pippa)] 50 mg PO BID 09/03/18 [place]-3 2 cap PO BID 09/03/18 Ubidecarenone 1 cap PO DAILY 09/03/18 Vitamin E 1 each PO DAILY 09/03/18 Cefdinir [Omnicef [equiv]] 300 mg PO Q12H #10 capsule 09/06/18 Guaifenesin [Mucinex] 1,200 mg PO BID #14 tablet 09/06/18 Following Prescrptions Were Given to Patient: Cefdinir [Omnicef [equiv]] 300 mg PO Q12H #10 capsule Guaifenesin [Mucinex] 1,200 mg PO BID #14 tablet Primary Care Physician: Lobo Spann [Primary Care Provider] - Please follow up with your Primary Care Physician in: in 5-7 days Disposition: Home Minutes spent on discharge:: 35 Patient Condition:: Stable Medical Necessity - Tobacco Use Smoking Status: Never smoker Tobacco Use: Non-smoker Meaningful Use Info Meaningful Use Diagnoses (Choose all that apply): None applicable Code Visit Inpatient E&M: 37182 Disch Hosp
--- NOTE | 2018-09-06 11:42 | DS.PCM_ITS ---
Discharge Date and Diagnosis - Problem List Patient Problems: Active and Suspected Problems Severe sepsis (Acute) Community acquired pneumonia (Acute) Acute respiratory failure with hypoxia (Acute) Date of Admission: 09/03/18 Date of Discharge: 09/06/18 - Primary Discharge Diagnosis Active and Suspected Problems Severe sepsis (Acute) Community acquired pneumonia (Acute) Acute respiratory failure with hypoxia (Acute) - Secondary Discharge Diagnosis Chronic Problems Chronic atrial fibrillation (Chronic) History of GI bleed (Chronic) Polycythemia (Chronic) Hospital Course and Treatment Imaging Results: Clinical Impression(s) from Imaging Studies Chest X-Ray 09/03/18 17:22 IMPRESSION: Cardiomegaly with diffuse mild interstitial changes of an acute or chronic nature without pulmonary venous congestion or pleural effusion. Otherwise negative for major consolidation or focal atelectasis. Atherosclerotic changes of the thoracic aorta. Severely demineralized osseous structures and increased thoracic kyphosis. Electronically Signed: Renita Shane MD at 18:40 EST , Service support , Chest X-Ray 09/05/18 05:35 IMPRESSION: 1. Hyperexpanded, consistent with obstructive pulmonary disease. There is persistent bibasilar peribronchial thickening consistent with acute or chronic reactive airways disease. 2. Stable mild cardiac enlargement. No pulmonary edema. Electronically Signed: Marshall Houser MD at 9:43 EST , Service support , Microbiology 09/03/18 23:08 Sputum, Expectorated/Coughed Gram Stain - Final 09/03/18 23:08 Sputum, Expectorated/Coughed Respiratory Culture - Final 09/03/18 18:15 Blood Culture (Wb) - Right Hand Blood Culture - Preliminary No growth in 48 hours. 09/03/18 18:15 Blood Culture (Wb) - Anticubital Left Blood Culture - Preliminary No growth in 48 hours. 09/03/18 21:30 Urine, Clean Catch Streptococcus pneumoniae Antigen (M - Final Streptococcus pneumonia Ag 09/03/18 21:30 Urine, Clean Catch Urine Culture - Final Mixed Gram Positive Organisms 09/03/18 22:05 Mucosa - Nose Respiratory Panel (PCR) - Final Human [place] 09/03/18 21:30 Urine, Clean Catch Legionella Antigen - Final 09/03/18 18:23 Mucosa - Nasopharyngeal Influenza Types A,B Direct FA (COLIN) - Final Summary of Care Provided: Patient is a 67-year-old lady who was sent to the ED by the PCP on account of progressive dyspnea with cough and generalized malaise. An assessment of severe sepsis with acute hypoxic respiratory failure secondary to bronchitis was made admitted to monitored bed for further management. Patient respiratory panel came back positive for Human [place] virus. 1. Severe sepsis secondary to acute viral bronchitis with Human [place], community-acquired pneumonia with Streptococcus as well as acute cystitis. 2. Acute hypoxic respiratory failure with significant tachypnea and hypoxia 84%, on room air when patient presented to the emergency department. Etiology is as discussed above. In addition to above treatment patient was placed on supplemental oxygen titrated to keep saturation greater than 90. Patient requested to be discharged home 2 days after her admission she was assessed for home oxygen needs and with the patient maintaining oxygen saturation greater than 96% on room air decision was made to discharge patient home. She was instructed to follow-up with her primary care physician within 3-5 days 3. Pneumonia: secondary to streptococcus pneumonia. Placed on Rocephin and Zithromax and on oxygen titrated to keep also is greater than 90 4. Acute cystitis patient on Rocephin urine cultures grew mixed organisms. 5. Polycythemia per history hemoglobin on admission was 11.6 6. Hypertension-blood pressure controlled, home medications continued with dose adjustment as needed 7. Paroxysmal atrial fibrillation patient was previously on systemic anticoagulation discontinued in view of GI bleed and has had runs of A. fib with RVR. 8. DVT prophylaxis SC Lovenox Patient Problems: Active and Suspected Problems Severe sepsis (Acute) Community acquired pneumonia (Acute) Acute respiratory failure with hypoxia (Acute) Objective: GENERAL: Patient is cooperative HEENT: Atraumatic; moist oral mucosa EYES; Anicteric, Normal Conjunctiva NECK; supple, normal thyroid, no distended JVD. RESPIRATORY: Diminished to auscultation bilaterally CARDIOVASCULAR: Irregular. GI: soft, non-tender, normoactive bowel sounds, : No Renal angle tenderness; EXTREMITIES: No edema, no clubbing, no cyanosis. MUSCULOSKELETAL: No Joint Tenderness; no muscle waisting NEURO: Awake; no lateralizing signs. SKIN: No Rash PSYCH; affect is flat - Physical Exam Vital Signs Temp Pulse Resp BP Pulse Ox 96.6 F L 95 17 103/63 94 09/06/18 10:43 09/06/18 10:46 09/06/18 10:43 09/06/18 10:43 09/06/18 10:57 Oxygen Flow Rate (L/min) [ 0 AMBULATION with Oxygen] Oxygen Flow Rate (L/min) [ 0 AMBULATING on Room Air] Oxygen Flow Rate (L/min) [At 0 REST on Room Air] Oxygen Flow Rate (L/min) 2 Oxygen Delivery Method Room Air Weight: 63 kg Body Mass Index (BMI) 25.4 Intake and Output for Last 24 Hours 09/04/18 09/05/18 09/06/18 23:59 23:59 23:59 Intake Total 4031 / 4031 2250 / 2250 50 / 50 Balance 4031 / 4031 2250 / 2250 50 / 50 Microbiology Past 72 Hours 09/03/18 23:08 Gram Stain - Final Sputum, Expectorated/Coughed Respiratory Culture - Final 09/03/18 18:15 Blood Culture - Preliminary Blood Culture (Wb) - Right Hand No growth in 48 hours. 09/03/18 18:15 Blood Culture - Preliminary Blood Culture (Wb) - Anticubital Left No growth in 48 hours. 09/03/18 21:30 Streptococcus pneumoniae Antigen (M - Final Urine, Clean Catch Streptococcus pneumonia Ag 09/03/18 21:30 Urine Culture - Final Urine, Clean Catch Mixed Gram Positive Organisms 09/03/18 22:05 Respiratory Panel (PCR) - Final Mucosa - Nose Human [place] [employer] 09/03/18 21:30 Legionella Antigen - Final Urine, Clean Catch 09/03/18 18:23 Influenza Types A,B Direct FA (COLIN) - Final Mucosa - Nasopharyngeal Laboratory Tests Past 24 Hrs 09/06/18 09/06/18 09/06/18 03:55 03:55 03:55 WBC 21.9 H RBC 4.90 Hgb 10.8 L Hct 38.5 MCV 78.6 L MCH 22.0 L MCHC 28.1 L RDW 19.2 H RDW Differential 52.2 H Plt Count 542 H MPV 11.7 Sodium 142 Potassium 3.5 Chloride 110 H Carbon Dioxide 24.0 Anion Gap 8 BUN 20 H Creatinine 0.75 Estim Creat Clear Calc 43.18 Est GFR (MDRD) Af Amer 98 Est GFR (MDRD) Non-Af 81 BUN/Creatinine Ratio 26.6 H Glucose 80 Calcium 8.2 L Magnesium 2.0 Discharge Diet: No Restrictions Discharge Activity: Return to Normal Activity Home Medications: Medications to take at Discharge Cbd Oil 1 each PO DAILY 09/03/18 Furosemide [Lasix] 20 mg PO DAILY 09/03/18 [place] 1 each PO DAILY 09/03/18 Hydroxyurea 500 mg PO DAILY 09/03/18 Menopause Formula 1 each PO DAILY 09/03/18 Metoprolol Tartrate [Lopressor (beta pippa)] 50 mg PO BID 09/03/18 [place]-3 2 cap PO BID 09/03/18 Ubidecarenone 1 cap PO DAILY 09/03/18 Vitamin E 1 each PO DAILY 09/03/18 Cefdinir [Omnicef [equiv]] 300 mg PO Q12H #10 capsule 09/06/18 Guaifenesin [Mucinex] 1,200 mg PO BID #14 tablet 09/06/18 Following Prescrptions Were Given to Patient: Cefdinir [Omnicef [equiv]] 300 mg PO Q12H #10 capsule Guaifenesin [Mucinex] 1,200 mg PO BID #14 tablet Primary Care Physician: Lobo Spann [Primary Care Provider] - Please follow up with your Primary Care Physician in: in 5-7 days Disposition: Home Minutes spent on discharge:: 35 Patient Condition:: Stable Medical Necessity - Tobacco Use Smoking Status: Never smoker Tobacco Use: Non-smoker Meaningful Use Info Meaningful Use Diagnoses (Choose all that apply): None applicable Code Visit Inpatient E&M: 50631 Disch Hosp
[2018-09-07 13:41] LABS: Pathologist Review Reviewed
== END 2018-09-06 14:00 | disposition home or self-care (01) | DRG 871 ==
LOC: ED 19:37 → PCU 20:12
PROVIDERS: Admitting Provider Family Medicine; Emergency Provider Emergency Medicine; Family Provider Family Medicine; PCP Family Medicine; Referring Provider Family Medicine; Visit Provider Internal Medicine
DX: A41.9 Sepsis, unspecified organism (principal); J96.01 Acute respiratory failure with hypoxia; J15.4 Pneumonia due to other streptococci; N30.00 Acute cystitis without hematuria; R65.20 Severe sepsis without septic shock; J20.8 Acute bronchitis due to other specified organisms; D75.1 Secondary polycythemia; B97.81 Human metapneumovirus as the cause of diseases classified elsewhere; I48.0 Paroxysmal atrial fibrillation; I10 Essential (primary) hypertension; Z87.19 Personal history of other diseases of the digestive system
CPT/HCPCS: 36415; 71046; 80048; 80053; 81001; 83605; 83735; 84439; 84443; 84480; 85025; 85027; 85610; 85730; 87040; 87070; 87086; 87088; 87205; 87449; 87633; 87804; 93005; 94640; 94667; 94668; 97165; 99283; J7030; A4216

== ENCOUNTER → 2019-07-27 11:15 | Outpatient (CLI) | payer OTHER, SELFPAY ==
[2019-07-27 09:55] VITALS: BMI 25.7
--- NOTE | 2019-07-27 11:17 | RAD_ITS ---
STUDY: X-RAY CHEST REASON FOR EXAM: Female, 68 years old. PNEUMONIA, PRODUCTIVE COUGH, CHEST TIGHTNESS TECHNIQUE: PA and lateral views of the chest. COMPARISON: Comparison is made with prior examination dated September 05, 2018. FINDINGS: Stable increased markings at the lung bases suggestive of scarring. Mild degree of vascular congestion. Blunting of both cosmetic angles. There is moderate cardiac enlargement. Normal mediastinum and rosa. There is prominence of the pulmonary hilar arteries suggesting pulmonary hypertension. There is atherosclerotic calcification of the aortic arch with tortuosity. There is demineralization of the osseous structures. Normal visualized ribs, clavicles, and shoulders. There is no demonstrated abnormality of the visualized soft tissue structures of the upper abdomen. RAD/Chest PA and Lateral IMPRESSION: Stable scarring at the lung bases with blunting of both gastric angles with a superimposed left congestion and mild CHF. Electronically Signed: Robin Kwong, at 12:42 EST , Service support ,
[2019-07-27 12:45] LABS: Absolute Lymphocyte Count 1.24 X10^3/uL (0.83-4.51); Absolute Neutrophil Count 20.8 X10^3/uL (2.0-7.7); Basophil# 0.28 X10^3/uL; Basophil% 1.2 % (0-1); Eosinophil# 0.65 X10^3/uL; Eosinophils% 2.7 % (0-5); Hematocrit 41.4 % (37-47); Hemoglobin 11.4 g/dL (12.0-15.0); Lymphocyte # 1.24 X10^3/ul (4.0); Lymphocyte % 5.2 % (19-41); Mean Corp Hgb Conc 27.5 g/dL (32-36); Mean Corpuscular Hgb 21.8 pg (27.0-32.0); Mean Corpuscular Volume 79.2 fL (81-99); Mean Platelet Vol. 11.3 fl (6.2-12.0); Monocyte# 0.69 X10^3/uL; Monocyte% 2.9 % (0-10); NRBC Flagged by Analyzer 0 % (0-5); Neutrophil # 20.76 X10^3/uL (2.7-7.7); Neutrophil % 86.6 % (47-70); POSITIVE DIFFERENTIAL YES; POSITIVE MORPHOLOGY YES; Platelet Count 488 K/mm3 (150-450); RBC Distribution Width CV 20.1 % (11.6-14.6); RBC Distribution Width SD 55.1 fl (35.1-43.9); Red Blood Count 5.23 M/mm3 (4.2-5.4)
[2019-07-27 12:50] LABS: Differential Indicated SCAN CRITERIA MET
[2019-07-27 12:54] LABS: International Normalized Ratio 1.4; Partial Thromboplast Time 39.9 Seconds (24.1-36.2); Prothrombin Time (Protime)PT. 16.7 SECONDS (11.7-14.9)
[2019-07-27 13:16] LABS: Platelet Estimate SLT INC (ADEQ); Platelet Morphology LARGE
[2019-07-27 13:42] LABS: Anion Gap 7 (5-15); BUN 26 mg/dL (7-18); BUN/Creat Ratio 30.4 RATIO (10-20); Calcium,Total 8.4 mg/dL (8.5-10.1); Chloride 106 mmol/L (98-107); Cholesterol 140 mg/dL (200); Creatinine, Serum 0.85 mg/dL (0.55-1.02); EST Glomerular Filtration Rate 70 mL/min (>60); Est Glom Filt Rate - Afr Amer 85 mL/min (>60); Glucose 81 mg/dL (74-106); High Density Lipoprotein 40 mg/dL; Potassium 3.9 mmol/L (3.5-5.1); Sodium Level 139 mmol/L (136-145); T4 Total, Thyroxin 9.3 ug/dL (4.8-13.9); Thyroid Stim Hormone (TSH) 0.07 uIU/mL (0.358-3.74); Triglycerides 89 mg/dL; Very Low Density Lipoprotein 18 mg/dL (5-40)
== END ==
PROVIDERS: Family Provider Family Medicine; PCP Family Medicine; Referring Provider Internal Medicine Cardiovascular Disease; Visit Provider Internal Medicine Cardiovascular Disease
DX: I34.0 Nonrheumatic mitral (valve) insufficiency (principal); D45 Polycythemia vera; J18.9 Pneumonia, unspecified organism; Z87.19 Personal history of other diseases of the digestive system; E78.00 Pure hypercholesterolemia, unspecified; A41.9 Sepsis, unspecified organism; R65.20 Severe sepsis without septic shock; I48.11 Longstanding persistent atrial fibrillation
CPT/HCPCS: 36415; 71046; 80048; 80061; 84436; 84443; 85025; 85610; 85730; 87040

== ENCOUNTER → 2019-08-11 11:13 | Outpatient (CLI) | payer SELFPAY, OTHER ==
[2019-07-27 09:55] VITALS: BMI 25.7
--- NOTE | 2019-08-11 11:14 | RAD_ITS ---
STUDY: X-RAY CHEST REASON FOR EXAM: Female, 68 years old. RECHECK AFTER Z MYRANDA FOR UPPER RESPIRATORY INFECTION TECHNIQUE: PA and lateral views of the chest. COMPARISON: Comparison is made with prior examination dated July 27, 2019. FINDINGS: Since prior study, there has been progressive increased markings at the lung bases suggestive of bibasilar atelectasis and/or infiltrates. This is superimposed on chronic scarring. Blunting of both costophrenic angles. There is moderate cardiac enlargement. Normal mediastinum and rosa. There is prominence of the pulmonary hilar arteries without peripheral pulmonary vascular congestion, suggesting pulmonary hypertension. There is atherosclerotic calcification of the aortic arch with tortuosity. There is demineralization of the osseous structures. Normal visualized ribs, clavicles, and shoulders. There is no demonstrated abnormality of the visualized soft tissue structures of the upper abdomen. RAD/Chest PA and Lateral IMPRESSION: Progressive atelectasis and/or infiltrates at the lung bases superimposed on chronic pulmonary scarring. Electronically Signed: Robin Kwong, at 11:19 EST , Service support ,
[2019-08-11 12:38] LABS: Absolute Lymphocyte Count 1.13 X10^3/uL (0.83-4.51); Absolute Neutrophil Count 17.8 X10^3/uL (2.0-7.7); Basophil# 0.24 X10^3/uL; Basophil% 1.2 % (0-1); Eosinophils% 2.5 % (0-5); Hematocrit 42.3 % (37-47); Hemoglobin 11.5 g/dL (12.0-15.0); Lymphocyte # 1.13 X10^3/ul (4.0); Lymphocyte % 5.6 % (19-41); Mean Corp Hgb Conc 27.2 g/dL (32-36); Mean Corpuscular Hgb 21.6 pg (27.0-32.0); Mean Corpuscular Volume 79.4 fL (81-99); Monocyte# 0.59 X10^3/uL; Monocyte% 2.9 % (0-10); NRBC Flagged by Analyzer 0 % (0-5); Neutrophil # 17.75 X10^3/uL (2.7-7.7); Neutrophil % 87.1 % (47-70); POSITIVE MORPHOLOGY YES; Platelet Count 428 K/mm3 (150-450); RBC Distribution Width CV 19.9 % (11.6-14.6); RBC Distribution Width SD 53.5 fl (35.1-43.9); Red Blood Count 5.33 M/mm3 (4.2-5.4); White Blood Count 20.4 K/mm3 (4.4-11.0)
[2019-08-11 13:05] LABS: AST(SGOT) 27 U/L (15-37); Alanine Aminotransfer ALT/SGPT 26 U/L (13-56); Albumin, Serum 3.4 g/dL (3.2-5.0); Alkaline Phosphatase 126 U/L (45-117); Bilirubin, Direct 0.38 mg/dL (0.00-0.30); Protein, Total 7.4 g/dL (6.4-8.2)
[2019-08-11 13:32] LABS: Differential Indicated SCAN CRITERIA MET
[2019-08-11 13:33] LABS: Anisocytosis 3+; Hypochromasia 1+; Ovalocyte 1+; Platelet Estimate ADEQUATE (ADEQ)
== END ==
PROVIDERS: PCP Family Medicine; Referring Provider Internal Medicine Cardiovascular Disease; Visit Provider Internal Medicine Cardiovascular Disease
DX: R09.89 Other specified symptoms and signs involving the circulatory and respiratory systems (principal); J18.9 Pneumonia, unspecified organism; D72.829 Elevated white blood cell count, unspecified
CPT/HCPCS: 36415; 71046; 80076; 85025

== ENCOUNTER 2019-08-18 08:38 | Outpatient (CLI) | payer SELFPAY, OTHER ==
[2019-07-27 09:55] VITALS: BMI 25.7
--- NOTE | 2019-07-27 10:37 | HP_ITS ---
HPI HPI History of Present Illness Surgical H&P: Yes Details: Mrs. Fishman is a very pleasant 68-year-old female, nondiabetic, with a history of systemic hypertension, pulmonary hypertension, atrial fibrillation was previously on anticoagulation therapy but then needed to stop it due to lower GI bleeding (colitis), polycythemia, who sees Dr. Neves previously admitted in August 2018 with what sounds like pneumonia. Patient apparently referred to our office for maintenance of atrial fibrillation. Patient has no documented echocardiogram or stress test in our computer. Her most recent echocardiogram the [facility] dated 10/14/2018 demonstrated an EF of 65%, dilated right ventricle with normal RV function, severe biatrial enlargement, moderate mitral regurgitation due to prolapse and estimated RVSP of 62 mmHg consistent with moderate to severe pulmonary hypertension. Previous to that her echocardiogram dated 09/09/2017 showed intact LV function, severe biatrial enlargement, 2-3+ mitral regurgitation and RVSP of 56 mmHg. As best I can tell she has never had a stress test. Her hemoglobin remains around 10-11. Her most recent EKG in the chart is from 09/03/2018 which showed atrial fibrillation with rapid ventricular response, normal axis, nonspecific lateral ST segment flattening and T wave inversion. On further history, the patient was doing well up until around 2 weeks ago when she developed fevers, chills, shortness of breath and decreased energy level. She also complains of cough with mild productive sputum. From a cardiac standpoint she states that she was first diagnosed with atrial fibrillation in 2011 after routine EKG and was placed on Coumadin therapy up until around 2 years ago when she developed GI bleeding. She has never had a stroke, and denies any previous coronary artery disease or catheterization. Patient states that she has had progressively worsening dyspnea on exertion and shortness of breath to the point where she can barely walk up 1 flight of stairs, and has been better part of 5 years before she can walk up more than 1 flight of stairs. In addition she complains of worsening lower extremity edema, worsening exercise capacity, and increasing fatigue over the last several months to a year. She states she has never had a CASSANDRA or a catheterization. In our office today her blood pressure is 80/50, pulse is 88 and irregular. Physical exam demonstrates clear lungs on the right, with evidence of crackles in her left lung base about one third the way up, irregularly irregular rhythm with a 2/6 holosystolic murmur over the lower left sternal border, no S4 is noted, with 1-2+ bilateral lower extremity edema despite wearing YUNIOR hose up to her knees. Lipids are pending. EKG is pending. Intake Vital Signs 07/27/19 BP 80/44 L 07/27/19 Blood Pressure Location Lt brachial 07/27/19 Position Sitting 07/27/19 Height 5 ft 2 in 07/27/19 Weight: 141 lb 07/27/19 BMI 25.7 07/27/19 BP 80/50 L 07/27/19 Blood Pressure Location Rt brachial 07/27/19 Position Sitting 07/27/19 Respiration 20 H 07/27/19 Pulse 88 07/27/19 Pulse Source Auscultation 07/27/19 Temp 97.9 F 07/27/19 Temperature Source Tympanic Intake Visit Reasons: A FIB (PEDRO LUIS PT) Allergies egg Adverse Reaction (Intermediate, Verified 07/27/19 10:04) GI upset chocolate Adverse Reaction (Intermediate, Uncoded 07/20/19 09:29) GI upset Medications Cbd Oil 1 ea PO DAILY 09/03/18 [History Confirmed 07/20/19] Furosemide [Lasix] 20 mg PO DAILY 09/03/18 [History Confirmed 07/20/19] [place] 1 ea PO DAILY 09/03/18 [History Confirmed 07/20/19] Hydroxyurea 500 mg PO DAILY 09/03/18 [History Confirmed 07/20/19] Menopause Formula 1 ea PO DAILY 09/03/18 [History Confirmed 07/20/19] Metoprolol Tartrate [Lopressor (beta pippa)] 50 mg PO BID 09/03/18 [History Confirmed 07/20/19] [place]-3 2 cap PO BID 09/03/18 [History Confirmed 07/20/19] Ubidecarenone 1 cap PO DAILY 09/03/18 [History Confirmed 07/20/19] Vitamin E 1 ea PO DAILY 09/03/18 [History Confirmed 07/20/19] aspirin 81 mg tablet,delayed release 81 mg PO DAILY 07/20/19 [History Confirmed 07/20/19] apixaban 5 mg tablet 5 mg PO BID #60 tab 07/27/19 [Rx Confirmed 07/27/19] azithromycin 250 mg tablet See Rx Instructions PO .COMPLEX #6 tab 07/27/19 [Rx Confirmed 07/27/19] [facility] Medical History Chronic atrial fibrillation (Chronic) History of GI bleed (Chronic) Secondary pulmonary hypertension (Chronic) Nonrheumatic mitral valve regurgitation (Chronic) Nonrheumatic tricuspid (valve) insufficiency (Chronic) Polycythemia vera (Chronic) Essential hypertension (Chronic) Surgical History History of total hysterectomy (Chronic) Family History (Updated 07/27/19 @ 10:04 by Le Sutton) Father , from colon cancer S/P CABG (coronary artery bypass graft) Colon cancer CAD (coronary artery disease) Mother Myocardial infarction CAD (coronary artery disease) Social History (Updated 07/27/19 @ 10:37 by Alexandro oPnd MD) Smoking Status: Never smoker ROS Const Const: Negative for fatigue, weakness, body ache, fever(s), headache(s), chills, frequent falls, night sweats, daytime sleepiness, difficulty sleeping, excessive sweating, weight gain, weight loss, increased appetite, poor appetite, anorexia or other Eyes Eyes: Negative for blind spots, loss of peripheral vision, transient loss of vision, blurry vision, change in vision, double vision, floaters, tunnel vision or other ENT ENT: Negative for headache(s), dizziness, hearing loss, tinnitus, Nosebleed/epistaxis, balance problems, post nasal drip, lip swelling, tongue swelling, bleeding gums, hoarseness, neck pain, dry mouth or other Cardio Chest Pain: No Resp Respiratory: Negative for SOB with activity, SOB at rest, SOB orthopnea\SOB lying down, Coughing up blood/hemoptysis, chest congestion, pain on inspiration, snoring, stridor, wheezing, crackles, paroxysmal nocturnal dyspnea or other GI GI: Negative nausea, vomiting, heartburn, constipation, belching, bloating, cramping, vomiting blood/hematemesis, bright, red blood in stools, black,tarry stools, loose stools, Difficulty Swallowing or other : Negative for hematuria, frequent nighttime urination/ nocturia, erectile dysfunction or abnormal vaginal bleeding Musc Musc: Negative for muscle aches/ myalgia, muscle weakness, joint pain or balance problems Skin Skin: Negative redness, non-healing lesions, rash, unusual bruising, skin ulcer, wounds, jaundice or other Neuro Neuro: Negative for dizziness, lightheadedness, near syncope, syncope, orthostatic symptoms, frequent falls, headache(s), weakness, confusion, memory loss, restless legs, blurry vision, double vision, vertigo, seizures, lack of coordination or other Gray Hematologic/Lymphatic: Negative for easy bleeding, easy bruising, enlarged lymph nodes or other Endo Endo: Negative for fatigue, cold intolerance, heat intolerance, excessive sweating, flushing, increased thirst/drinking, increased hunger, hair loss, hair growth or other Psych Psych: Negative for anxiety, depression, thoughts of harming anyone, thoughts of harming yourself, visual hallucinations, panic attacks or audible hallucinations Allergy Allergy/Immunology: Negative for throat swelling, Negative for tongue swelling, Negative for hives, Negative for rash, Negative for lip swelling Cardiology Exam Const Appearance: cooperative, healthy appearing and no acute distress Nutritional Appearance: well nourished Orientation: alert, oriented x3 and oriented to person Head Head: normal to inspection, normocephalic and atraumatic Nose: external nose normal Face and Sinus: face symmetric Mouth: oral mucosae normal Eyes General: appearance normal, both eyes and all related structures Eyelids: eyelids normal Conjunctivae: conjunctivae normal Pupils: PERRL and normal by confrontation EOM: EOM intact bilaterally Neck Neck: normal visual inspection and full ROM Carotids: normal carotid upstroke Chest Chest inspection: normal inspection of the chest Auscultation: Bilateral: Clear to Auscultation Cardio Palpation: normal PMI Rate: regular rate Rhythm: irregular rhythm Heart sounds: S2 normal Murmur: Grade 2/6, soft and holosystolic GI GI: normal to inspection, no hepatosplenomegaly and bowel sounds present Neuro General: alert, awake, oriented x3, CN's II-XI intact bilaterally and moves all extremities Skin Skin: no rashes or lesions noted Extremities Pulses: Normal: Right Femoral Pulse, Left Femoral Pulse, Right Dorsalis Pedis Pulse, Left Dorsalis Pedis Pulse, Right Posterior Tibial Pulse, Left Posterior Tibial Pulse, Right Radial Pulse, Left Radial Pulse Lower Extremity Edema: +2: Bilateral Psych Psychological: normal affect Assessment & Plan 1. Nonrheumatic mitral valve regurgitation I34.0 Moderate (2-3+) per echo 10/14/18 done @ [facility] [place]. Mild thickening, mild calcification, mild prolapse of anterior and posterior mitral leaflets Plan 1. Mitral regurgitation: The patient has known mitral regurgitation for some time, labeled as 2-3+, with progressively worsening pulmonary hypertension to the point where her last echocardiogram on 10/14/2018 showed a estimated RVSP of at least 62 mmHg. Combined with this the patient has had progressively worsening shortness of breath, dyspnea on exertion, atrial fibrillation with severe biatrial enlargement, and progression to bilateral lower extremity edema somewhat refractory to Lasix therapy. I believe the patient's constellation of symptoms over the last several years have been related to her might regurgitation and believe she may benefit from mitral valve repair surgery to alleviate her mitral regurgitation and pulmonary hypertension. Although the patient's pulmonary hypertension may be associated as well with polycythemia vera, her hemoglobin appears to be fairly well controlled and only requires phlebotomy every 2 months or so. Therefore, I recommended the patient undergo a transesophageal echocardiogram followed by a left and right heart catheterization to evaluate for possible mitral valve repair and possible concomitant coronary bypass surgery. Prior to this, the patient's infectious process will need to be resolved completely. To that end we will obtain a chest x-ray, blood cultures, CBC, and start her on a Z-Rolando. Orders Orders: Left & Right Heart Cath 2 Weeks Basic Metabolic Profile (BMP) Today Partial Thromboplast Time Today Echo Transesophageal (CASSANDRA) Today Chest PA and Lateral Today 2. Secondary pulmonary hypertension Moderate: RVSP 62 mmhg per echo done @ [facility] [place] 10/14/2018 Plan 2. Pulmonary pretension: Her pulmonary pretension is most likely secondary to her mitral regurgitation as her P vera does not appear to be appreciably that high. I recommended the patient restart anticoagulation therapy as she is at high risk for CVA as well as DVT/pulmonary embolism given her pulmonary hypertension. The patient has agreed to Eliquis. She had difficulty with maintaining and monitoring her INR. 3. Chronic atrial fibrillation I48.20 Plan 3. Atrial fibrillation: The patient is atrial fibrillation for at least 7 years possibly longer, and I do not believe she would benefit from DC cardioversion prior to mitral valve repair surgery. I do believe she is at high risk for CVA as well as pulmonary embolism given her pulmonary hypertension, and I recommended starting her on Eliquis 5 mg p.o. twice daily. Should the patient require mitral valve repair surgery, recommend left atrial appendage ligation to mitigate the need for anticoagulation long-term going forward given her history of GI bleeding 2 years ago. Orders Orders: Basic Metabolic Profile (BMP) Today 4. Community acquired pneumonia, unspecified laterality J18.9 Plan 4. Community-acquired pneumonia: Patient appears to have crackles in her left base and had community-acquired pneumonia about 1 year ago in August 2018. Again we will obtain a CBC with differential, chest x-ray, blood cultures, and start her on Z-Rolando therapy. I do not believe the patient requires admission to the hospital at this time but if her pulmonary situation deteriorates she may require admission to the hospital with broad-spectrum IV antibiotic therapy. Would not recommend any mitral valve repair surgery until after her pneumonia has completely resolved. 5. Return office in 6 months. This note was generated using a voice recognition system and there may be incorrect words, spelling or punctuation that were not noted when reviewing the office note prior to saving. Orders Orders: Culture, Blood (WB) Today CBC W/Diff, Automated Today Chest PA and Lateral Today Culture, Blood (WB) Today CBC W/Diff, Automated Today Culture, Blood (WB) Today Plan Detail Other Orders Orders: 12 Lead EKG performed by BMS Today I48.2 Culture, Blood (WB) Today A41.9, R65.20 Basic Metabolic Profile (BMP) Today [id number] CBC W/Diff, Automated Today A41.9, D45, R65.20 Chest PA and Lateral Today A41.9, R65.20 Left & Right Heart Cath 2 Weeks I48.2 Basic Metabolic Profile (BMP) Today D45, I48.2 Lipid Profile 1 Week E78.00 Liver Profile 1 Week E78.00 T4 Total, Thyroxin Today I48.2 Thyroid Stim Hormone (TSH) Today I48.2 Prothrombin Time w/INR Today I48.2 Echo Transesophageal (CASSANDRA) Today I48.2 CBC W/Diff, Automated Today I48.2, Z87.19 Chest PA and Lateral Today I10 Culture, Blood (WB) Today A41.9, R65.20 Other Medications New: azithromycin (Zithromax Z-Rolando) take 500 mg today (day 1), then 250 mg for 4 days (days 2-5) PO 6 tabs 0RF apixaban (Eliquis) 5 mg PO BID 60 tabs 11RF Follow Up +6M (Salty) Coding Level of Care Code Off vis,new,level 4 Diagnoses Nonrheumatic mitral valve regurgitation I34.0 Secondary pulmonary hypertension Chronic atrial fibrillation I48.20 Community acquired pneumonia, unspecified laterality J18.9 ??Laterality: unspecified laterality Coding Level of Care Code Off vis,new,level 4 Diagnoses Nonrheumatic mitral valve regurgitation I34.0 Secondary pulmonary hypertension Chronic atrial fibrillation I48.20 Community acquired pneumonia, unspecified laterality J18.9 ??Laterality: unspecified laterality Supplemental Info Supplemental Information Diagnostics Electrocardiogram 09/03/18 Chest X-Ray 09/05/18 07/27/19 1037 <Electronically signed by Alexandro Pond MD> Date _ Alexandro Pond MD
[2019-08-11 14:10] VITALS: BMI 25.7
[2019-08-17 08:46] VITALS: BMI 25.7
--- NOTE | 2019-08-18 08:42 | ECHOTEE_ITS ---
Reason For Study: Valve Replacement Eval Medication CASSANDRA probe 6VT-D (SN [id number]) passed without difficulty. No complications were noted. [id number] gargled and swallowed. Cetacaine Topical [place] given X2 orally. Versed 2 mg given slow IVP. Fentanyl 0.25 mcg given slow IVP. Left Ventricle Normal size and thickness. The estimated ejection fraction is 65 %. Unable to assess diastolic dysfunction due to arrhythmia. No regional wall motion abnormalities noted. Right Ventricle Severely dilated right ventricle. Moderate global right ventricular systolic dysfunction. Atria Normal atrial septum. Bubble contrast study negative for right to left interatrial shunt. The left atrium is severely enlarged. No thrombus is detected in the left atrial appendage. Normal right atrium. Mitral Valve Mild diffuse mitral valve thickening. Posterior leaflet mitral valve prolapse. Severe (4+) mitral valve insufficiency. Tricuspid Valve Normal tricuspid valve. Moderately severe (3+) tricuspid valve insufficiency. Right ventricular systolic pressure estimated to be 53 mmHg. Moderate pulmonary hypertension. Aortic Valve Trisinus/trileaflet aortic valve. Aortic sclerosis, no stenosis. Pulmonic Valve Normal pulmonic valve. Vessels Normal aortic root. Normal arch. The pulmonary artery is normal size. Pulmonary venous flow attenuated diastolic component. MMode/2D Measurements & Calculations RVDd: 4.8 cm LA dimension: 6.5 cm Doppler Measurements & Calculations TR max annette: 307.9 cm/sec Interpretation Summary The estimated ejection fraction is 65 %. Unable to assess diastolic dysfunction due to arrhythmia. Severely dilated right ventricle. Moderate global right ventricular systolic dysfunction. Bubble contrast study negative for right to left interatrial shunt. The left atrium is severely enlarged. No thrombus is detected in the left atrial appendage. Posterior leaflet mitral valve prolapse. Severe (4+) mitral valve insufficiency. Moderately severe (3+) tricuspid valve insufficiency. Right ventricular systolic pressure estimated to be 53 mmHg. Moderate pulmonary hypertension. Pt appears to be in atrial fibrillation. Ordering Physician: Alexandro Pond Referring Physician: Lobo Spann Performed By: Yissel Fletcher, MARK, RVT
--- NOTE | 2019-08-18 12:59 | CL.D_ITS ---
Patient Name: HAWK FERRER Study Date: 08/18/2019 Performing: Alexandro Pond MD Ht: 61.81 inches 157 cm : 1950 Wt: 141.1 lbs 64 kg Age: 68 Gender: female BSA: 1.64 PROCEDURE(S) PERFORMED UF24-IRF/LHC/COR/LV CLINICAL PROFILE AND INDICATIONS Indications: Suspected CAD, Valvular Disease, Cardiac Arrythmia Heart Failure: None Stress/Imaging Stress/Image Study Performed: No Angina Classification Anginal Classification w/in 2 Weeks: No symptoms CAD Presentations: Other: Dyspnea on exertion. Comorbidities/Risk Factors: Hypertension CONCLUSIONS Normal coronary arteries Perserved Left Ventricular systolic function with normal EDP Normal LV size, wall motion,and systolic function LVEF: by LV gram 65 % Mitral Valve Insufficiency Severe The patient has pulmonary hypertension which is severe. Right heart pressures - severely elevated RECOMMENDATIONS Management as per referring Joint Filler Surgery consult for valvular disease Increase lasix to 40mg po daily. DESCRIPTION OF PROCEDURE The patient arrived to the procedure lab. The risks and benefits of the procedure as well as a full d escription of our services here and current unavailability of surgical backup were fully explained to the patient and/or their significant other prior to the catheterization. The Timeout was completed, verifying the correct patient and procedure. The patient's procedural site was prepped and draped in the usual fashion. Local anesthetic was given subcutaneously to right groin region with Lidocaine 2%. Using a modified Seldinger technique, arterial access was obtained via the right femoral artery, a 4 Fr sheath was inserted Venous access was obtained via the right femoral vein, a 7Fr sheath was insert ed. A 7Fr thermal dilution catheter was inserted and right heart pressures were recorded, it was then advanced to PA position for cardiac outputs. Thermal dilution cardiac outputs were then recorded. O2 saturations were then obtained. Left Ventriculography was performed in WHITEHEAD projection using a 4 Fr. Pigtail catheter. LV to AO pullback pressures were then recorded. Simultaneous pressure s were then recorded. The Thermal dilution catheter was then removed. Left Coronary Artery selective angiography was performed in multiple views using a 4 Fr. JL5 catheter. Right Coronary Artery selecti ve angiography was then performed in multiple views using a 4 Fr. 3DRC catheter.The arterial sheath w as pulled and manual compression applied until hemostasis is achieved. CORONARY ANGIOGRAPHY DOMINANCE: Right Dominant LEFT HEART ASSESSMENT Left Ventricular Ejection Fraction: by LV Gram 65 % Normal LV wall motion Normal Left Ventricular systolic function LVEDP: 10 mmHg RIGHT HEART ASSESSMENT Thermal CO: 4.89 Thermal CI: 2.98 Zainab CO: 3.1 Zainab CI: 1.89 PW: /36 20 PA: 74/34 47 RV: 72/3 16 RA: / 18 PVR: 442 Right Heart pressures - elevated Pulmonary Hypertension Severe LEFT MAIN: Angiographically normal LEFT ANTERIOR DESCENDING ARTERY: Angiographically normal CIRCUMFLEX ARTERY: Angiographically normal RIGHT CORONARY ARTERY: Angiographically normal VALVE FINDINGS: Mitral Valve Insufficiency - Grade 4 COMPLICATIONS No Complications PROCEDURE MEDICATIONS Oxygen: 3 L/min via nasal cannula SUMMARY OF HEMODYNAMIC DATA Time AIR REST ECG 09:04:21 RA /22 (18) SV 12:30:02 RV 72/3, 16 12:31:15 PA 74/34 (47) PA 12:32:51 PW /36 (20) PV 12:37:03 LV 111/-4, 12 12:39:43 LV 104/-8, 9 12:41:24 PW /32 (21) 12:41:24 LV 104/-7, 6 12:41:30 PW /25 (15) 12:41:30 LV 107/-6, 11 12:41:54 RV 71/3, 11 12:41:54 LV 108/-13, 7 12:42:02 RV 69/0, 10 12:42:02 LV 100/-5, 6 12:43:27 LVp 105/-4, 6 12:43:33 AOp 108/62 (79) 12:43:39 Type SV CO (l/m) CI (l/m/ HR Time AIR REST Thermal 66.10 4.89 2.98 74 09:04:21 Zainab 41.90 3.10 1.89 74 09:04:21 Label % O2 Pres/Loc Time AIR REST PA 38 PA 12:45:15 AO 83 PV 12:45:20 Signed By Alexandro Pond MD On 08/18/2019 12:58:51 Alexandro Pond MD
[2019-08-18 13:01] LABS: Base Excess -8 mmol/L (-2 to +2); Bicarbonate 17.8 mmol/L (22-26); Blood Gas Specimen Type ART; PO2 51 mmHG (75-100); SO2 83 % (95-99); Total Carbon Dioxide 19 mmol/L; pH 7.33 (7.35-7.45)
[2019-08-18 13:01] LABS: Blood Gas Specimen Type VEN; VBG BASE EXCESS -3 mmol/L (-1.0-3.5); VBG Bicarbonate 22 mmol/L (22-26); VBG Oxygen Content 23 mmol/L (23-33); VBG PO2 23 mmHg (25-40); VBG SO2 40 % (50-70); VBG pCO2 37.6 mmHg (41-51); VBG pH 7.38 (7.32-7.42)
[2019-08-18 13:01] LABS: Blood Gas Specimen Type VEN; VBG BASE EXCESS -4 mmol/L (-1.0-3.5); VBG Bicarbonate 21 mmol/L (22-26); VBG Oxygen Content 22 mmol/L (23-33); VBG PO2 23 mmHg (25-40); VBG SO2 37 % (50-70); VBG pCO2 37.8 mmHg (41-51); VBG pH 7.36 (7.32-7.42)
[2019-08-18 15:30] VITALS: BP 98/68; PULSE 74; RESP 16; TEMP 36.6; O2SAT 94
[2019-08-18 15:52] VITALS: PULSE 83
[2019-08-18 16:00] VITALS: BP 94/57; PULSE 75; RESP 16; O2SAT 95
[2019-08-18 17:00] VITALS: BP 91/62; PULSE 72; RESP 20; O2SAT 97
[2019-08-18 17:20] VITALS: BP 95/71; PULSE 78; RESP 16; O2SAT 95
--- NOTE | 2019-08-18 17:31 | NURSING ---
ambulated pt up to bathroom and back. No signs of bleeding or hematoma noted. BP 95/71 pt denies light headedness or dizziness. Pt states her BP is chronically low.
== END 2019-08-18 17:53 | disposition home or self-care (01) ==
LOC: CVS 08:39 → PCU 15:44
PROVIDERS: Family Provider Family Medicine; PCP Family Medicine; Referring Provider Internal Medicine Cardiovascular Disease; Visit Provider Internal Medicine Cardiovascular Disease
DX: I34.0 Nonrheumatic mitral (valve) insufficiency (principal); R06.09 Other forms of dyspnea; I10 Essential (primary) hypertension; I27.20 Pulmonary hypertension, unspecified; I07.1 Rheumatic tricuspid insufficiency; D45 Polycythemia vera; I48.20 Chronic atrial fibrillation, unspecified; Z82.49 Family history of ischemic heart disease and other diseases of the circulatory system
CPT/HCPCS: 82803; 93312; 93320; 93325; 93460; J7040; Q9967; A4216; C1751; C1769; C1894

== ENCOUNTER → 2019-11-17 10:30 | Outpatient (CLI) | payer OTHER, SELFPAY ==
[2019-08-17 08:46] VITALS: BMI 25.7
--- NOTE | 2019-11-17 10:31 | ECHOD_ITS ---
Reason For Study: Pericardial effusion, MV/TV Repair Procedure This was a 2D Doppler, Color Flow transthoracic echocardiogram. Exam performed in department. Left Ventricle Moderate eccentric left ventricular hypertrophy. The estimated ejection fraction is 65 %. Unable to assess diastolic dysfunction due to arrhythmia. No regional wall motion abnormalities noted. Right Ventricle Severely dilated right ventricle. Mild to moderate global right ventricular systolic dysfunction. Atria The left atrium is severely enlarged. The right atrium is severely enlarged. Normal atrial septum. Mitral Valve Peak transmitral valve gradient 11 mmHg. Mean transmitral valve gradient 5 mmHg. No mitral valve insufficiency. Status post mitral valve repair with annuloplasty ring. Tricuspid Valve Normal tricuspid valve. Unable to estimate RV systolic pressure due to insufficient tricuspid regurgitant envelope. No tricuspid valve insufficiency. An annuloplasty ring is noted in the tricuspid position. Aortic Valve Trisinus/trileaflet aortic valve. Normal aortic valve. Pulmonic Valve Normal pulmonic valve. Trivial pulmonic valve insufficiency. Great Vessels Normal aortic root. Normal arch. The inferior vena cava is dilated. Inferior vena cava collapse with respiration. Pericardium/Pleural Small pericardial effusion. There are no echocardiographic indications of cardiac tamponade. MMode/2D Measurements & Calculations LVIDd: 4.4 cm IVSd: 1.4 cm Ao root diam: 3.4 cm LVIDs: 2.7 cm LVPWd: 1.5 cm RVDd: 4.2 cm FS: 37.7 % LAV(MOD-bp): 137.3 ml LA A4 area: 33.9 cm2 LA dimension(2D): 4.7 cm LAV(MOD-bp) Indexed: 84.9 ml/m2 LAV(MOD-sp2): 156.1 ml LAV(MOD-sp4): 113.7 ml RA A4 area: 23.1 cm2 Doppler Measurements & Calculations MV E max annette: 113.7 cm/sec MV V2 max: 165.2 cm/sec MV P1/2t max annette: 159.7 cm/sec MV max P.9 mmHg MV P1/2t: 91.3 msec MV V2 mean: 107.7 cm/sec MV dec slope: 512.4 cm/sec2 MV mean P.1 mmHg MV V2 VTI: 30.6 cm MVA(P1/2t): 2.4 cm2 Ao V2 max: 126.7 cm/sec LV V1 max: 105.5 cm/sec PA V2 max: 89.6 cm/sec Ao max P.4 mmHg LV V1 max P.5 mmHg Interpretation Summary Moderate eccentric left ventricular hypertrophy. The estimated ejection fraction is 65 %. Unable to assess diastolic dysfunction due to arrhythmia. Severely dilated right ventricle. Mild to moderate global right ventricular systolic dysfunction. The left atrium is severely enlarged. The right atrium is severely enlarged. Status post mitral valve repair with annuloplasty ring. No mitral valve insufficiency. Peak transmitral valve gradient 11 mmHg. Mean transmitral valve gradient 5 mmHg. An annuloplasty ring is noted in the tricuspid position. Unable to estimate RV systolic pressure due to insufficient tricuspid regurgitant envelope. No tricuspid valve insufficiency. Small to moderate, predominately posterior pericardial effusion. There are no echocardiographic indications of cardiac tamponade. Compared to echo report from an outside facility dated 10/14/2019, LV function has remained the same, the noted large posteriorly located pericardial effusion now appears to be small to moderate without evidence of RV collapse. Pt appears to be in atrial fibrillation. Ordering Physician: Franklyn Fletcher/Alexandro Pond Referring Physician: Lobo Spann MD Performed By: Orin Livingston RDCS
== END ==
PROVIDERS: PCP Family Medicine; Referring Provider Nurse Practitioner Family; Visit Provider Nurse Practitioner Family
DX: I48.11 Longstanding persistent atrial fibrillation (principal); I34.0 Nonrheumatic mitral (valve) insufficiency; I36.1 Nonrheumatic tricuspid (valve) insufficiency; I31.3 Pericardial effusion (noninflammatory); Z98.890 Other specified postprocedural states
CPT/HCPCS: 93306

== ENCOUNTER → 2019-12-27 15:25 | Outpatient (CLI) | payer OTHER, SELFPAY ==
[2019-12-20 08:48] VITALS: BMI 25.6
--- NOTE | 2019-12-27 15:49 | EKG12_ITS ---
Test Reason : HX MAZE PROCEDURE Blood Pressure : / mmHG Vent. Rate : 114 BPM Atrial Rate : 114 BPM P-R Int : 000 ms QRS Dur : 082 ms QT Int : 328 ms P-R-T Axes : 000 096 -08 degrees QTc Int : 452 ms Atrial tachycardia with variable block Abnormal ECG Confirmed by CITLALI BULLOCK, MIMI ([id number]), editor book RAYMUNDO ROWE ([id number]) on 12/28/2019 10:18:23 AM Referred By: Alexandro Pond Confirmed By:MIMI GODWIN MD
== END ==
PROVIDERS: PCP Family Medicine; Referring Provider Internal Medicine Cardiovascular Disease; Visit Provider Internal Medicine Cardiovascular Disease
DX: Z98.890 Other specified postprocedural states (principal)
CPT/HCPCS: 93005

== ENCOUNTER 2020-04-14 13:17 | Emergency (ER) | payer OTHER, SELFPAY ==
[2019-12-20 08:48] VITALS: BMI 25.6
[2020-04-14 13:18] VITALS: BP 91/62; PULSE 124; RESP 17; TEMP 36.4; O2SAT 98; BMI 25.6
--- NOTE | 2020-04-14 14:10 | RAD_ITS ---
STUDY: X-RAY - PELVIS AND LEFT HIP REASON FOR EXAM: Female, 69 years old. FALL JEAN-PAUL LEFT SIDE. VERY PAINFUL LEFT HIP, UNABLE TO BEAR WEIGHT TECHNIQUE: 3 views of the pelvis and hip. COMPARISON: None. FINDINGS: There is a non-specific bowel gas pattern. Rim-like calcification in the central pelvis. This may represent calcified uterine fibroids. Normal bilateral iliac wings, sacroiliac joints and visualized sacrum. Normal bilateral superior and inferior pubic rami. Normal pubic symphysis. Normal bilateral ischial tuberosities. Normal visualized femoral head. Normal acetabulum. Normal hip joint. RAD/HIP, UNI W/ Pelvis 2-3 Views IMPRESSION: Normal x-ray examination of the pelvis and hip. Questionable calcification of uterine fibroids. Electronically Signed: Robin Kwong, at 14:25 EDT , Service support ,
--- NOTE | 2020-04-14 14:10 | RAD_ITS ---
STUDY: X-RAY - LEFT SHOULDER REASON FOR EXAM: Female, 69 years old. FELL ONTO LEFT SIDE. PAINFUL LEFT SHOULDER TECHNIQUE: 3 view(s) of the shoulder. COMPARISON: None. FINDINGS: Normal glenohumeral articulation. Nondisplaced fracture through the lateral aspect of the left clavicle. Normal acromion. Normal humeral head and visualized proximal humerus. The soft tissue structures are unremarkable. Prior mitral and aortic valve replacement. Increased markings in the left lung suggestive of scarring. RAD/Shoulder min 2 Views IMPRESSION: Nondisplaced fracture through the lateral aspect of the right clavicle. Electronically Signed: Robin Kwong, at 14:26 EDT , Service support ,
--- NOTE | 2020-04-14 14:35 | EKG12_ITS ---
Test Reason : FALL Blood Pressure : / mmHG Vent. Rate : 123 BPM Atrial Rate : 246 BPM P-R Int : 000 ms QRS Dur : 082 ms QT Int : 290 ms P-R-T Axes : 235 092 069 degrees QTc Int : 415 ms Atrial flutter with 2:1 A-V conduction Rightward axis Nonspecific ST and T wave abnormality Abnormal ECG Confirmed by CITLALI BULLOCK, MIMI ([id number]), editor continuity and script PATRIC BONNER ([id number]) on 04/19/2020 8:39:06 AM Referred By: AUSTIN Confirmed By:MIMI GODWIN MD
--- NOTE | 2020-04-14 14:53 | RAD_ITS ---
STUDY: X-RAY CHEST REASON FOR EXAM: Female, 69 years old. DIZZINESS AND FALL THIS AM. C/O LEFT HIP AND SHOULDER PAIN -- 2 STENTS PLACED IN SEPTEMBER 2019 TECHNIQUE: Single AP portable view of the chest. COMPARISON: Comparison is made with prior examination dated 08/11/2019. FINDINGS: Pulmonary vascular congestion and mild CHF. Stable mild increased markings at the left lung base. There is no demonstrated pleural abnormality. Sternal cerclage wires are present from a prior sternotomy. Evidence of prior mitral and aortic valve replacements. Moderate cardiomegaly. Normal mediastinum and rosa. Normal visualized pulmonary arteries. There is atherosclerotic calcification of the aortic arch with tortuosity. Normal visualized thoracic spine. Nondisplaced fracture of the lateral aspect of the left clavicle. There is no demonstrated abnormality of the visualized soft tissue structures of the upper abdomen. RAD/Chest 1 View (Portable) IMPRESSION: Cardiomegaly and vascular congestion. Status post mitral and aortic valve replacements. Nondisplaced fracture of the lateral aspect of the left clavicle. Electronically Signed: Robin Kwong, at 15:06 EDT , Service support ,
[2020-04-14 14:56] LABS: Absolute Lymphocyte Count 0.94 X10^3/uL (0.83-4.51); Absolute Neutrophil Count 26.8 X10^3/uL (2.0-7.7); Basophil# 0.41 X10^3/uL; Basophil% 1.3 % (0-1); Eosinophil# 0.36 X10^3/uL; Eosinophils% 1.2 % (0-5); Hematocrit 39.4 % (37-47); Hemoglobin 10.7 g/dL (12.0-15.0); Lymphocyte # 0.94 X10^3/ul (4.0); Mean Corp Hgb Conc 27.2 g/dL (32-36); Mean Corpuscular Volume 77.4 fL (81-99); Mean Platelet Vol. 10.2 fl (6.2-12.0); Monocyte# 1.05 X10^3/uL; Monocyte% 3.4 % (0-10); NRBC Flagged by Analyzer 0 % (0-5); Neutrophil # 26.79 X10^3/uL (2.7-7.7); Neutrophil % 86.8 % (47-70); POSITIVE COUNT YES; POSITIVE DIFFERENTIAL YES; POSITIVE MORPHOLOGY YES; Platelet Count 534 K/mm3 (150-450); RBC Distribution Width CV 20.6 % (11.6-14.6); RBC Distribution Width SD 54.4 fl (35.1-43.9); Red Blood Count 5.09 M/mm3 (4.2-5.4)
[2020-04-14 14:58] LABS: Differential Indicated SCAN CRITERIA MET
[2020-04-14 15:06] LABS: International Normalized Ratio 1.2
[2020-04-14 15:13] LABS: Anion Gap 7 (5-15); BUN 25 mg/dL (7-18); BUN/Creat Ratio 29.5 RATIO (10-20); Calcium,Total 8.7 mg/dL (8.5-10.1); Chloride 104 mmol/L (98-107); Creatinine, Serum 0.85 mg/dL (0.55-1.02); EST Glomerular Filtration Rate 71 mL/min (>60); Est Glom Filt Rate - Afr Amer 85 mL/min (>60); Glucose 107 mg/dL (74-106); Potassium 3.9 mmol/L (3.5-5.1); Sodium Level 135 mmol/L (136-145)
[2020-04-14 15:20] VITALS: BP 104/69; PULSE 123; RESP 18; O2SAT 99
[2020-04-14 15:38] LABS: Differential Comment SEE COMMENTS
[2020-04-14 15:39] LABS: White Blood Count 30.9 K/mm3 (4.4-11.0)
[2020-04-14 15:40] LABS: Anisocytosis 1+; Microcytosis 1+; Ovalocyte RARE; Platelet Estimate ADEQUATE (ADEQ); Red Cell Morphology N CHROM NORMAL (NORM C&C)
--- NOTE | 2020-04-14 15:49 | ED.VIS.FALL ---
History of Present Illness Informant: Patient Occurred: Today Mechanism/Context: Same level fall, Prodromal, Dizziness, Lightheadedness, Near-syncope Usually ambulates: Without assistance Location: left hip Quality of Pain: Sharp Current Severity: Severe Maximum Severity: Severe Worsened by: movement Relieved by: nothing Associated Symptoms: Inability to ambulate. Negative for: Parasthesias, Weakness, Loss of function, Loss of consciousness, Amnesia Length of loss of consciousness: zero Narrative: 69-year-old female history of CHF, atrial flutter, myeloproliferative disorder, and polycythemia presents with left hip pain after a fall. Patient states that she had some prodromal lightheadedness and dizziness and fell. She did not lose consciousness. She fell on her left side injuring her left hip and has not been able to get up since. She is on Eliquis for history of atrial fibrillation and atrial flutter. She denies any chest pain or shortness of breath denies any nausea or vomiting weakness or paresthesias. Denies any other injuries at this time. She had a tricuspid valve and mitral valve replacement 6 months ago at [facility]. Tetanus Immunization: Unknown Prior similar symptoms: No Recent Illness/Hospitalization: No <Ha Meyer - Last Filed: 04/14/20 17:20> <Erick Ayon - Last Filed: 04/14/20 22:00> Chief Complaint: Fall Past Medical History Prior records reviewed: Yes Past Medical History: - - CHF, hypertension, hyperlipidemia, atrial fibrillation, atrial flutter, polycythemia, myeloproliferative disorder Surgical History: - - Hysterotomy with bilateral salpingo-oophorectomy. Lives: With Family Smoking Status: Never smoker Alcohol: None Drugs: None - Family History Maternal Family History: Family History (Last Reviewed 12/20/19 @ 08:49 by eL Sutton) Father S/P CABG (coronary artery bypass graft) Colon cancer CAD (coronary artery disease) Mother Myocardial infarction CAD (coronary artery disease) Family History: Reports: - - Patient notes a maternal family history of heart disease, AL with at 89 secondary to sequelae of massive AL. Paternal Family History: Family History (Last Reviewed 12/20/19 @ 08:49 by Le Sutton) Father S/P CABG (coronary artery bypass graft) Colon cancer CAD (coronary artery disease) Mother Myocardial infarction CAD (coronary artery disease) Family History: Reports: - - Patient notes a paternal family history of heart disease. <Ha Meyer - Last Filed: 04/14/20 17:20> - Family History Maternal Family History: Family History (Last Reviewed 12/20/19 @ 08:49 by Le Sutton) Father S/P CABG (coronary artery bypass graft) Colon cancer CAD (coronary artery disease) Mother Myocardial infarction CAD (coronary artery disease) Paternal Family History: Family History (Last Reviewed 12/20/19 @ 08:49 by Le Sutton) Father S/P CABG (coronary artery bypass graft) Colon cancer CAD (coronary artery disease) Mother Myocardial infarction CAD (coronary artery disease) <Erick Ayon - Last Filed: 04/14/20 22:00> - Allergies and Home Meds Allergies/Adverse Reactions: Allergies egg Adverse Reaction (Intermediate, Verified 04/14/20 13:18) GI upset chocolate Adverse Reaction (Intermediate, Uncoded 04/14/20 13:18) GI upset Primary Care Physician: Lobo Spann MD [Primary Care Provider] - Review of Systems All systems negative except as indicated General: Denies: Chills, Fever, Sweats Eyes: Denies: Visual changes - bilaterally, Diplopia ENT: Denies: Rhinorrhea, Sore throat Cardiovascular: Denies: Chest pain, Palpitations Respiratory: Denies: Dyspnea, Cough, Dyspnea on exertion Gastrointestinal: Denies: Abdominal pain, Nausea, Vomiting, Diarrhea, Melena, Hematochezia Genitourinary: Denies: Dysuria, Hematuria, Frequency Musculoskeletal: Reports: Swelling, Extremity Pain. Denies: Myalgias, Arthralgias, Neck pain, Back pain Skin: Denies: Rash, Abscess, Abrasions, Wounds Neurological: Denies: Headache, Weakness, Numbness <Ha Meyer - Last Filed: 04/14/20 17:20> Physical Exam Vital Signs/Narrative: Vital Signs Temp Pulse Resp BP Pulse Ox 04/14/20 15:20 123 H 18 104/69 99 04/14/20 13:18 97.6 F L 124 H 17 91/62 98 Inital Vital Signs reviewed: Yes General: Well nourished, Well developed Head: Normocephalic, Atraumatic Eyes: Perrl, EOMI ENT: TM's clear, No hemotympanum or drainage, No trauma Neck: Nontender, Full ROM Cardiovascular: Regular rate, Regular rhythm, No murmurs Respiratory: No distress, CTA bilaterally, Chest nontender Abdomen: Soft, Nontender, Nondistended, Normal bowel sounds Back: Nontender Extremeties: Normal inspection of the left hip. She is diffusely tender over the left hip. She is unable to raise her left leg off the bed. The skin is intact there is no obvious deformity there is no shortening she has normal DP and PT pulse and sensation throughout the left lower extremity. Her knee and ankle and foot are all nontender on palpation. Lumbar spine nontender on palpation. She also has pain over her left clavicle. Skin is intact without deformity. No tenderness over the shoulder. She is able to fully abduct and adduct her left arm. Neurovascular intact distally from the left shoulder. No other signs of abnormality left upper extremity Skin: Normal color, No rash Neurological: Alert, Oriented x3, Cranial nerves II-XII grossly intact, Normal Strength, Normal Sensation Psychological: Normal affect, Normal Mood <Ha Meyer - Last Filed: 04/14/20 17:20> Vital Signs/Narrative: Vital Signs Pulse Resp BP Pulse Ox 04/14/20 18:05 115 H 16 105/72 98 <Erick Ayon - Last Filed: 04/14/20 22:00> Diagnostic/Tx/Re-eval Chest X-Ray - ED: 1 View, Read by ED Physician, Read by Radiologist, Cardiomegaly, CHF - Rhythm Strip Rhythm Strip: A flutter Rate: 123 Ectopy: None - EKG Initial EKG Interpretation: No Acute Injury Pattern, Atrial Flutter Prior: Unchanged - Medical Decision Making Patient presents with left hip pain after a fall. She is unable to ambulate or bear weight. On arrival she has tachycardia her EKG showed atrial flutter 2-1 block. She has a history of this but with an elevated rate of 123 we ordered 10 of IV Cardizem. Otherwise vital signs stable. She declined analgesia. Her laboratory work-up shows a white blood cell count of 30 however she does have a history of a myeloproliferative disorder recent white blood cell count last month was 25. The rest of her labs are unremarkable. Troponin is negative. BNP is negative. Chest x-ray shows mild CHF. Left shoulder x-ray shows a distal nondisplaced left clavicle fracture. X-ray of left hip and pelvis is negative but the patient is still unable to bear weight therefore obtained a CT scan of the hip which demonstrates a acetabular fracture and an inferior and superior pubic rami fracture. At this facility this type of repair for an acetabular fracture is unable to be done therefore patient request transfer to [facility] we spoke with the transfer line spoke with Dr. Maguire who agreed to accept and the patient will first be evaluated in the emergency department secondary to 2 different fractures. Patient hemodynamically stable. I spoke with family and patient and they are agreeable with plan of care <Ha Meyer - Last Filed: 04/14/20 17:20> - Medical Decision Making Agree with above assessment and plan by VALERY. I did evaluate the patient. Given the fact she has an acetabular fracture patient was needed to be transferred for definitive treatment. I did discuss the case with the on-call doctor at [facility]. She is started on Cardizem given her atrial flutter with RVR. Otherwise has been stable throughout ED stay. Patient understands and is agreeable this plan. <Erick Ayon - Last Filed: 04/14/20 22:00> ED Disposition <Ha Meyer - Last Filed: 04/14/20 17:20> <Erick Ayon - Last Filed: 04/14/20 22:00> - Plan for ED Patient: Disposition: [facility] Diagnosis: Acetabulum fracture, left, Fracture of superior pubic ramus, Fracture of inferior pubic ramus, Atrial flutter with rapid ventricular response, Myeloproliferative disease Referrals: Lobo Spann MD [Primary Care Provider] -
[2020-04-14] MEDS: 0.9% Normal Saline 1,000 ML 1000 ML IV (15:50)
--- NOTE | 2020-04-14 16:10 | CT_ITS ---
Study: CT of the left lower extremity without contrast HISTORY: Left hip pain after fall Prior study: Plain film study of the left hip of this date. PROCEDURE: Multiple computed tomographic images of the left hip are obtained at 2.5 mm intervals using 2.5 mm thick slices in the axial projection. Coronal and sagittal reconstructions were obtained. Radiation dose: Total exam DLP: 375.45 FINDINGS: There are nondisplaced cortical chip fractures of the anterior acetabular rim and superior left pubis adjacent to the symphysis, as well as nondisplaced fracture of the proximal inferior left pubic ramus. The left femoral head remains in its normal articulation in the acetabulum. Soft tissues are unremarkable. CT/Extremity Lower without Contra IMPRESSION: Nondisplaced cortical chip fractures of the anterior acetabular rim and superior left pubis adjacent to the symphysis, as well as nondisplaced fracture of the proximal inferior left pubic ramus. Electronically Signed: Josue Hassan MD at 16:38 EDT , Service support ,
[2020-04-14 16:25] LABS: Lactic Acid 1.2 mmol/L (0.4-1.9)
[2020-04-14] MEDS: dilTIAZem 25 MG/5 ML Vial 10 MG IV BOLUS (16:44)
[2020-04-14 17:37] VITALS: BP 107/61; PULSE 115; RESP 18; O2SAT 98
[2020-04-14] MEDS: 0.9% Normal Saline 1,000 ML 150 ML IV (17:39)
[2020-04-14] MEDS: Morphine 4 MG/ML Syringe IV (17:48)
[2020-04-14] MEDS: Ondansetron 4 MG/2 ML Vial IV (17:48)
[2020-04-14 18:05] VITALS: BP 105/72; PULSE 115; RESP 16; O2SAT 98
[2020-04-17 14:11] LABS: Pathologist Review Reviewed
== END 2020-04-14 18:20 | disposition short-term general hospital (02) ==
PROVIDERS: Emergency Provider Physician Assistant Medical; PCP Family Medicine
DX: S32.402A Unspecified fracture of left acetabulum, initial encounter for closed fracture (principal); S32.592A Other specified fracture of left pubis, initial encounter for closed fracture; I48.92 Unspecified atrial flutter; C94.6 Myelodysplastic disease, not elsewhere classified; I11.0 Hypertensive heart disease with heart failure; E78.5 Hyperlipidemia, unspecified; I48.91 Unspecified atrial fibrillation; I50.9 Heart failure, unspecified; Z79.01 Long term (current) use of anticoagulants; Z82.49 Family history of ischemic heart disease and other diseases of the circulatory system; Z95.2 Presence of prosthetic heart valve; Z90.722 Acquired absence of ovaries, bilateral; Z95.1 Presence of aortocoronary bypass graft; W19.XXXA Unspecified fall, initial encounter; Y93.9 Activity, unspecified; Y92.89 Other specified places as the place of occurrence of the external cause; Y99.9 Unspecified external cause status
CPT/HCPCS: 71045; 73030; 73502; 73700; 80048; 83605; 83880; 84484; 85025; 85610; 87040; 93005; 96361; 96374; 96375; 99285; J7030; A4216; J2405

== ENCOUNTER 2020-04-26 19:40 | Inpatient (IN) | payer SELFPAY ==
[2020-04-26 20:13] VITALS: BP 127/72; PULSE 78; RESP 16; TEMP 36.7; O2SAT 97; BMI 25.2; BMI 25.3
[2020-04-26 22:00] VITALS: BP 127/68; PULSE 80; RESP 16; TEMP 36.6; O2SAT 76
[2020-04-26 22:26] VITALS: PULSE 78
[2020-04-26] MEDS: Enoxaparin 60 MG/0.6 ML Syringe SC (22:26)
[2020-04-26] MEDS: Metoprolol Tartrate 25 MG Tablet 12.5 MG PO (22:26)
[2020-04-26] MEDS: 0.9% Saline Lock 10 ML Syringe IV (23:52)
[2020-04-26] MEDS: Vancomycin IV 1,000 MG/200 ML BAG 200 MG IV (23:54)
--- NOTE | 2020-04-27 02:08 | NURSING ---
Pt resting well in bed after arrival and fatigued from transport. VS WNL. x1 assist.
--- NOTE | 2020-04-27 04:08 | PCM.RX.CS ---
Consult Pharmacy has been consulted to manage selected antiobiotic: Vancomycin Type of Consult: New start Pharmacy Plan for Drug Dosing: Pharmacy Service will continue to monitor and adjust dosing as required. ON 1GM Q12H PRIOR TO ADMISSION, CONTINUE AND DRAW TROUGH 04/28 Follow-Up Labs: Trough Vancomycin Labs to be done on [date and time ordered]: 04/28
[2020-04-27 05:28] VITALS: PULSE 96
[2020-04-27] MEDS: Metoprolol Tartrate 25 MG Tablet 12.5 MG PO ×3 (05:28→21:44)
[2020-04-27 05:44] LABS: Absolute Lymphocyte Count 1.22 X10^3/uL (0.83-4.51); Absolute Neutrophil Count 22.1 X10^3/uL (2.0-7.7); Basophil# 0.35 X10^3/uL; Basophil% 1.3 % (0-1); Eosinophil# 0.91 X10^3/uL; Eosinophils% 3.4 % (0-5); Hematocrit 35.2 % (37-47); Hemoglobin 9.4 g/dL (12.0-15.0); Lymphocyte # 1.22 X10^3/ul (4.0); Lymphocyte % 4.6 % (19-41); Mean Corp Hgb Conc 26.7 g/dL (32-36); Mean Corpuscular Hgb 21.5 pg (27.0-32.0); Mean Corpuscular Volume 80.5 fL (81-99); Mean Platelet Vol. 12.1 fl (6.2-12.0); Monocyte# 0.93 X10^3/uL; Monocyte% 3.5 % (0-10); NRBC Flagged by Analyzer 0 % (0-5); Neutrophil # 22.12 X10^3/uL (2.7-7.7); Neutrophil % 82.9 % (47-70); POSITIVE DIFFERENTIAL YES; POSITIVE MORPHOLOGY YES; Platelet Count 482 K/mm3 (150-450); RBC Distribution Width CV 20.6 % (11.6-14.6); Red Blood Count 4.37 M/mm3 (4.2-5.4); White Blood Count 26.7 K/mm3 (4.4-11.0)
[2020-04-27 05:50] LABS: Differential Indicated SCAN CRITERIA MET
[2020-04-27 05:51] LABS: International Normalized Ratio 1.4; Prothrombin Time (Protime)PT. 16.5 SECONDS (11.7-14.9)
[2020-04-27 06:09] LABS: ALB/GLOB Ratio 0.6 RATIO (0.9-2.4); AST(SGOT) 23 U/L (15-37); Alanine Aminotransfer ALT/SGPT 17 U/L (13-56); Albumin, Serum 2.7 g/dL (3.2-5.0); Alkaline Phosphatase 195 U/L (45-117); Anion Gap 6 (5-15); BUN 12 mg/dL (7-18); BUN/Creat Ratio 16.9 RATIO (10-20); Calcium,Total 8.7 mg/dL (8.5-10.1); Chloride 101 mmol/L (98-107); Creatinine, Serum 0.71 mg/dL (0.55-1.02); EST Glomerular Filtration Rate 87 mL/min (>60); Est Glom Filt Rate - Afr Amer 105 mL/min (>60); Estimated Creatinine Clearance 41.99 ml/min; Globulin 4.4 g/dL (2.2-4.2); Glucose 84 mg/dL (74-106); Magnesium 1.9 mg/dL (1.6-2.6); Phosphorus 3.5 mg/dL (2.5-4.9); Potassium 3.9 mmol/L (3.5-5.1); Protein, Total 7.1 g/dL (6.4-8.2); Sodium Level 136 mmol/L (136-145)
[2020-04-27 06:10] LABS: Differential Comment SCANNED
[2020-04-27 06:51] LABS: Digoxin Level 1.03 ng/mL (0.80-2.00)
--- NOTE | 2020-04-27 08:43 | HP.PCM_ITS ---
Problem List (1) Microcytic anemia Status: Chronic (2) Leukocytosis Status: Chronic (3) Thrombocytosis Status: Chronic (4) Foraminal stenosis of cervical region Status: Acute Comment: Severe at C4-C5 (5) Thyroid nodule Status: Acute Comment: 2.2 cm discovered incidentally on CT scan of the cervical spine for C2 fracture. Will need follow-up (6) Endocarditis Status: Acute Qualifiers: Endocarditis type: unspecified Chronicity: acute Qualified Code(s): I33.9 - Acute and subacute endocarditis, unspecified Comment: She has a floppy mass on the mitral valve and it is unknown if this is a clot or vegetation. (7) Subdural hematoma Status: Acute (8) Pelvic hematoma Status: Acute (9) Contusion of cervical cord Status: Suspected Comment: Abnormal signal on MRI on the right aspect of the cervical cord at C4-5 and C5-6-most likely contusion secondary to recent fall and fracture of C2 with spondylolisthesis of C2. (10) Subtherapeutic international normalized ratio (INR) Status: Acute (11) Presence of left atrial appendage closure device composed of nickel- titanium alloy with polyethylene terephthalate membrane Status: Chronic Comment: Size [address] Darion Steinberg [facility] (12) H/O maze procedure Status: Chronic Comment: Biatrial Cryomaze Dr. Darion Steinberg [facility] (13) S/P tricuspid valve repair Status: Chronic Comment: [place] MC3 Tricuspid ring size 30 Dr. Darion Stienberg [facility] (14) S/P mitral valve repair Status: Chronic Comment: Stephanie Mitral Ring #35 Dr. Darion Steinberg [facility] (15) History of transesophageal echocardiography (CASSANDRA) Status: Chronic Comment: Posterior leaflet mitral valve prolapse. Severe (4+) mitral valve insufficiency. Moderately severe (3+) tricuspid valve insufficiency. Right ventricular systolic pressure estimated to be 53 mmHg. Moderate pulmonary hypertension. Pt appears to be in atrial fibrillation. (16) History of right and left heart catheterization Status: Chronic Comment: Normal coronary arteries; Perserved Left Ventricular systolic function with normal EDP; Normal LV size, wall motion,and systolic function; LVEF: by LV gram 65 %; Mitral Valve Insufficiency: Severe; The patient has pulmonary hypertension which is severe. Right heart pressures - severely elevated. Surgery consult for valvular disease, Increase lasix to 40mg po daily. (17) Longstanding persistent atrial fibrillation Status: Chronic (18) History of GI bleed Status: Chronic (19) Secondary pulmonary hypertension Status: Chronic Comment: Moderate: RVSP 70 mmhg per echo done @ [facility] in March 2020 (20) Nonrheumatic mitral valve regurgitation Status: Chronic Comment: Moderate (2-3+) per echo 10/14/18 done @ [facility]. Mild thickening, mild calcification, mild prolapse of anterior and posterior mitral leaflets (21) Nonrheumatic tricuspid (valve) insufficiency Status: Chronic Comment: Mild (1+) per echo 10/14/18 done @ [facility]. (22) Polycythemia vera Status: Chronic Comment: Receives phlebotomy treatments per Dr. Neves, [facility] (23) Essential hypertension Status: Chronic (24) History of total hysterectomy Status: Chronic (25) Chronic anticoagulation Status: Chronic (26) Closed left clavicular fracture Status: Acute (27) Fracture of left superior pubic ramus Status: Acute (28) Left acetabular fracture Status: Acute (29) Syncope and collapse Status: Acute History of Present Illness Date of Admission: 04/26/20 Chief Complaint: debility due to a fall resulting in a left clavicle fracture, left superior ramus fx, left acetabular fracture followed by DVT and endocarditis. Lakeisha Fishman is a 69 year old [facility] woman with a past medical history of mitral valve and tricuspid valve repair, maze procedure, history of left atrial appendage closure device, l longstanding persistent atrial fibrillation, history of GI bleed, chronic anticoagulation with warfarin, polycythemia vera, secondary pulmonary hypertension with recent echocardiogram at [facility] showing a right ventricular systolic pressure of 70 mmHg, essential hypertension and history of a total hysterectomy who presented to the [facility] emergency department on 04/14/2020 after a fall. She tells me that she does not remember falling. She felt dizzy and the next thing she knew she was on the ground. Work-up at [facility] showed a left anterior acetabular fracture, left superior and inferior pubic rami fractures and a left nondisplaced clavicle fracture. She was transferred to [facility] becausae of the acetabular fracture.....no one at [place] does the type of surgery required for an acetabular fracture. No surgery was done at [facility]. While she was there she had AF with RVR and she was started on Dig in addition to the beta matt she was already taking. An ECHO showed a mobile mass on the MCV and it is unknown if this is a clot or a vegetation. Blood cultures are reportedly negative. She was started on Rocephin and Vancomycin and a PICC was placed. A CT scan of the head and neck showed severe foraminal stenosis at C4- C5. MRI of the neck showed increased signal in the right aspect of the cord at C4-5 and C5-6. This is presumed to be a cord contusion. An incidental finding was a 2.2 CM thyroid nodule which will need followed as an OP. She was transferred to the in acute rehab unit at [facility] on 04/26/2020 for greater than 3 hours of therapy daily to restore her at or near her prior level of independence. She follows with [facility] for cardiology care. Past Medical History Past Medical History (Chronic Problems): Chronic Problems (Last Reviewed 12/20/19 @ 08:49 by Le Sutton) Microcytic anemia (Chronic) Leukocytosis (Chronic) Thrombocytosis (Chronic) Chronic anticoagulation (Chronic) Presence of left atrial appendage closure device composed of nickel-titanium alloy with polyethylene terephthalate membrane (Chronic 09/27/19) Size [address] Darion ZUNIGA H/O maze procedure (Chronic 09/27/19) Biatrial Cryomaze Dr. Darion ZUNIGA S/P tricuspid valve repair (Chronic 09/27/19) [place] MC3 Tricuspid ring size 30 Dr. Darion GILLESPIE S/P mitral valve repair (Chronic 09/27/19) Stephanie Mitral Ring #35 Dr. Darion Steinberg [facility] History of transesophageal echocardiography (CASSANDRA) (Chronic 08/18/19) Posterior leaflet mitral valve prolapse. Severe (4+) mitral valve insufficiency. Moderately severe (3+) tricuspid valve insufficiency. Right ventricular systolic pressure estimated to be 53 mmHg. Moderate pulmonary hypertension. Pt appears to be in atrial fibrillation. History of right and left heart catheterization (Chronic 08/18/19) Normal coronary arteries; Perserved Left Ventricular systolic function with normal EDP; Normal LV size, wall motion,and systolic function; LVEF: by LV gram 65 %; Mitral Valve Insufficiency: Severe; The patient has pulmonary hypertension which is severe. Right heart pressures - severely elevated. Surgery consult for valvular disease, Increase lasix to 40mg po daily. Longstanding persistent atrial fibrillation (Chronic) History of GI bleed (Chronic) Secondary pulmonary hypertension (Chronic) Moderate: RVSP 70 mmhg per echo done @ [facility] in March 2020 Nonrheumatic mitral valve regurgitation (Chronic) Moderate (2-3+) per echo 10/14/18 done @ [facility]. Mild thickening, mild calcification, mild prolapse of anterior and posterior mitral leaflets Nonrheumatic tricuspid (valve) insufficiency (Chronic) Mild (1+) per echo 10/14/18 done @ [facility]. Polycythemia vera (Chronic) Receives phlebotomy treatments per Dr. Neves, [facility]. Essential hypertension (Chronic) History of total hysterectomy (Chronic) Medical History: Medical History (Last Reviewed 04/28/20 @ 09:[address] Kat Nuñez, ) Longstanding persistent atrial fibrillation (Chronic) I48.11 History of GI bleed (Chronic) Z87.19 Secondary pulmonary hypertension (Chronic) Moderate: RVSP 70 mmhg per echo done @ [facility] in March 2020 Nonrheumatic mitral valve regurgitation (Chronic) I34.0 Moderate (2-3+) per echo 10/14/18 done @ [facility]. Mild thickening, mild calcification, mild prolapse of anterior and posterior mitral leaflets Nonrheumatic tricuspid (valve) insufficiency (Chronic) I36.1 Mild (1+) per echo 10/14/18 done @ [facility] [place]. Polycythemia vera (Chronic) D45 Receives phlebotomy treatments per Dr. Neves, [facility] [place]. Essential hypertension (Chronic) I10 Allergies egg Adverse Reaction (Intermediate, Verified 04/14/20 13:18) GI upset chocolate Adverse Reaction (Intermediate, Uncoded 04/14/20 13:18) GI upset Home Medications: Ambulatory Orders Medication Instructions Recorded Hydroxyurea 500 mg PO DAILY 09/03/18 Metoprolol Tartrate 12.5 mg PO TID 04/26/20 Surgical History: Surgical History (Last Reviewed 04/28/20 @ 09:[address] Kat Nuñez DO) Presence of left atrial appendage closure device composed of nickel-titanium alloy with polyethylene terephthalate membrane (Chronic) Onset Date: 09/27/19 Z95.[address] [facility] maze procedure (Chronic) Onset Date: 09/27/[address] Z98.[address] Darion Steinberg [facility] S/P tricuspid valve repair (Chronic) Onset Date: 09/27/19 Z98.890 [place] MC3 Tricuspid ring size [address] Dr[address] Darion Steinberg [facility] S/P mitral valve repair (Chronic) Onset Date: 09/27/19 Z98.890 [facility]ral [facility] [place] of transesophageal echocardiography (CASSANDRA) (Chronic) Onset Date: 08/18/19 Z92.89 Posterior leaflet mitral valve prolapse. Severe (4+) mitral valve insufficiency. Moderately severe (3+) tricuspid valve insufficiency. Right ventricular systolic pressure estimated to be 53 mmHg. Moderate pulmonary hypertension. Pt appears to be in atrial fibrillation. History of right and left heart catheterization (Chronic) Onset Date: 08/18/19 Z98.890 Normal coronary arteries; Perserved Left Ventricular systolic function with normal EDP; Normal LV size, wall motion,and systolic function; LVEF: by LV gram 65 %; Mitral Valve Insufficiency: Severe; The patient has pulmonary hypertension which is severe. Right heart pressures - severely elevated. Surgery consult for valvular disease, Increase lasix to 40mg po daily. History of total hysterectomy (Chronic) Z90.710 Surgical History: - - Hysterotomy with bilateral salpingo-oophorectomy. Psychiatric History: No pertinent psych hx [employer] History: uterine fibroids - History of uterine fibroids status post hysterectomy with bilateral salpingo-nephrectomy., - - She has had a total hysterectomy in the past. Lives: With Family Smoking Status: Never smoker Tobacco Use: Non-smoker Alcohol: None Drugs: None - *Family History Maternal Family History: Family History (Last Reviewed 04/28/20 @ 09:[address] Kat Nuñez DO) Father S/P CABG (coronary artery bypass graft) Colon cancer CAD (coronary artery disease) Mother Myocardial infarction CAD (coronary artery disease) History Items: - - Patient notes a maternal family history of heart disease, OK with at 89 secondary to sequelae of massive OK. Paternal Family History: Family History (Last Reviewed 04/28/20 @ 09:[address] Kat Nuñez DO) Father S/P CABG (coronary artery bypass graft) Colon cancer CAD (coronary artery disease) Mother Myocardial infarction CAD (coronary artery disease) History Items: - - Patient notes a paternal family history of heart disease. Review of Systems Constitutional: Reports: Weakness. Denies: Chills, Fever, Weight Change Eyes: Denies: Vision Change HEENT: Denies: Head Aches, Nasal Congestion, Sinus Congestion, Sinus Drainage Cardiovascular: Denies: Chest Pain, Edema, Light Headedness, Palpitations Respiratory: Denies: Cough, Shortness of Breath, Shortness of breath at rest, Sputum production Gastrointestinal: Reports: Constipation. Denies: Abdominal Pain, Diarrhea, Nausea, Vomiting Genitourinary: Denies: Dysuria Gynecological: Denies: Breast symptoms, Vaginal discharge Musculoskeletal: Reports: Joint Pain - Left hip, Joint Tenderness Skin: Denies: Jaundice, Pruritis, Rash, Wounds Neurological: Reports: Focal weakness - lefdt leg and arfm due to fractures. Denies: Change in Speech, Slurred speech, Headaches, Numbness, Tingling, Seizures Psychiatric: Denies: Anxiety, Depression, Homicidal Ideations, Suicidal Ideations Endocrine: Denies: Change in Body Habitus, Hx of Irradiation Hematologic/ Lymphatic: Reports: Hx of blood clot. Denies: Easy Bruising, Easy Bleeding VTE Information - Inpt Only VTE Present on Admission: No VTE Mechan Device Prophylaxis: Knee High YUNIOR Hose VTE Pharm Prophylaxis ordered?: No Reason prophylaxis not ordered:: Treatment Not Indicated - She is on full dose anticoagulation for history of VTE, new polycythemia vera Patient Problems: Active and Suspected Problems (Last Reviewed 12/20/19 @ 08:49 by Le Sutton) Foraminal stenosis of cervical region (Acute) Severe at C4-C5 Thyroid nodule (Acute) 2.2 cm discovered incidentally on CT scan of the cervical spine for C2 fracture. Will need follow-up Endocarditis (Acute) She has a floppy mass on the mitral valve and it is unknown if this is a clot or vegetation. Subdural hematoma (Acute) Pelvic hematoma (Acute) Contusion of cervical cord (Suspected) Abnormal signal on MRI on the right aspect of the cervical cord at C4-5 and C5-6-most likely contusion secondary to recent fall and fracture of C2 with spondylolisthesis of C2. Subtherapeutic international normalized ratio (INR) (Acute) Closed left clavicular fracture (Acute) Fracture of left superior pubic ramus (Acute) Left acetabular fracture (Acute) Syncope and collapse (Acute) - Physical Exam Vitals/I&O's: Vital Signs Temp Pulse Resp BP Pulse Ox 97.9 F 96 16 127/68 H 76 04/26/20 22:00 04/27/20 05:28 04/26/20 22:00 04/26/20 22:00 04/26/20 22:00 Oxygen Delivery Method Room Air Weight: 138 lb 3.677 oz Body Mass Index (BMI) 25.2 Intake and Output for Last 24 Hours 04/25/20 04/26/20 04/27/20 23:59 23:59 23:59 Intake Total 120 / 170 370 / 370 Output Total 800 / 800 1500 / 1500 Balance -680 / -630 -1130 / -1130 General: Alert, Oriented x3, Cooperative, No apparent distress, Well developed, Well nourished, - - She is sitting in the recliner at the bedside eating her lunch and appears in no distress. Pain is currently adequately controlled with Tylenol. HEENT: Atraumatic, PERRLA, EOMI, Normocephalic Oral: Moist Mucosa, No Gingival or Mucosal Lesions/ Ulcerations Neck: Supple, No JVD, Negative Carotid Bruits, No Nodes, No Nuchal Rigidity, Trachea Midline Lungs: Diminished - Diminished in the bases with coarse crackles in both bases., Rales Cardiovascular: Normal S1, Normal S2, No murmurs, Irregular Rate - She is currently in atrial fibrillation., No rub noted, No Gallop Abdomen: Bowel Sounds Present, Soft, Non Tender, Non-Distended Extremities: No clubbing, No cyanosis, No edema, Capillary Refill Less than 3 Seconds, No Calf Tenderness Skin: No rashes, No breakdown Musculoskeletal: No Tenderness to Palpation of Joints or Extremities, No Muscle Wasting, Arthritic Changes Neurological: Cranial nerves II-XII grossly intact Psych/Mental Status: Normal Affect, Appropriate Laboratory Results 04/27/20 05:25: PT 16.5 H, INR 1.4 04/27/20 05:25: Digoxin 1.03 04/27/20 05:25: Sodium 136, Potassium 3.9, Chloride 101, Carbon Dioxide 29.0, Anion Gap 6, BUN 12, Creatinine 0.71, Estim Creat Clear Calc 41.99, Est GFR (MDRD) Af Amer 105, Est GFR (MDRD) Non-Af 87, BUN/Creatinine Ratio 16.9, Glucose 84, Calcium 8.7, Phosphorus 3.5, Magnesium 1.9, Total Bilirubin 0.30, AST 23, ALT 17, Alkaline Phosphatase 195 H, Total Protein 7.1, Albumin 2.7 L, Globulin 4.4 H, Albumin/Globulin Ratio 0.6 L 04/27/20 05:25: WBC 26.7 H, RBC 4.37, Hgb 9.4 L, Hct 35.2 L, MCV 80.5 L, MCH 21.5 L, MCHC 26.7 L, RDW Std Deviation 57.0 H, RDW Coeff of Teodora 20.6 H, Plt Count 482 H, MPV 12.1 H, Immature Gran % (Auto) 4.300 H, Neut % (Auto) 82.9 H, Lymph % (Auto) 4.6 L, Wharton % (Auto) 3.5, Eos % (Auto) 3.4, Baso % (Auto) 1.3 H, Absolute Neuts (auto) 22.1 H, Absolute Lymphs (auto) 1.22, Nucleated RBC % 0, Differential Comment SCANNED Current Medications Acetaminophen (Tylenol) 650 mg PO Q6H PRN PRN PRN Reason: Pain Score 1-10/10 Aspirin (Aspirin, Baby) 81 mg PO DAILY@0800 [facility] Bisacodyl (Dulcolax) 10 mg RECTAL .PRN X 1 PRN PRN Reason: Constipation Colchicine (Colchicine) 0.6 mg PO DAILY [facility] Digoxin (Lanoxin) 125 mcg PO DAILY [facility] Enoxaparin Sodium (Lovenox) 60 mg SC Q12 [facility] Last Admin: 04/26/20 22:26 Dose: 60 mg Documented by: Furosemide (Lasix) 20 mg PO DAILY [facility] Hydroxyurea (Hydrea) 500 mg PO DAILY [facility] Ceftriaxone Sodium 2 gm/ (Sodium Chloride) 50 mls @ 100 mls/hr IV Q12 [facility] Last Infusion: 04/27/20 00:00 Dose: Infused Documented by: Vancomycin HCl (Vancomycin) 1,000 mg in 200 mls @ 200 mls/hr IV Q12H [facility] Last Infusion: 04/27/20 01:05 Dose: Infused Documented by: Sodium Chloride () 250 mls @ 15 mls/hr IV .[id number] PRN PRN Reason: Saline Flush Magnesium Hydroxide (Milk Of Magnesia) 30 ml PO .PRN X 1 PRN PRN Reason: Constipation Metoprolol Tartrate (Lopressor (Beta Matt)) 12.5 mg PO TID [facility] Last Admin: 04/27/20 05:28 Dose: 12.5 mg Documented by: Pantoprazole Sodium (Protonix) 40 mg PO DAILY [facility] Potassium Chlor[facility] (K[facility]Dur) [facility] Senna/Docusate Sodium (Senokot-S, Kita-Colace) 2 tablet PO BID [facility] Last Admin: 04/26/20 22:30 Dose: Not Given Documented by: Sodium Chloride () 10 - 40 ml IV UD PRN PRN Reason: SALINE FLUSH Last Admin: 04/26/20 23:52 Dose: 10 ml Documented by: Tramadol HCl (Ultram) 50 mg PO Q6H PRN PRN PRN Reason: Pain Score 1-10/10 Warfarin Sodium (Jantoven) 5 mg PO DAILY@1700 [facility] Assessment/Plan All Active Problems (Last Reviewed 12/20/19 @ 08:49 by Le Sutton) Foraminal stenosis of cervical region (Acute) Thyroid nodule (Acute) Endocarditis (Acute) Subdural hematoma (Acute) Pelvic hematoma (Acute) Subtherapeutic international normalized ratio (INR) (Acute) Closed left clavicular fracture (Acute) Fracture of left superior pubic ramus (Acute) Left acetabular fracture (Acute) Syncope and collapse (Acute) Severe sepsis (Resolved) Community acquired pneumonia (Resolved) Acute respiratory failure with hypoxia (Resolved) Impressions 1. Debility secondary to a recent fall resulting in a left anterior acetabular fracture, superior and inferior pubic rami fractures on the left, nondisplaced left clavicular fracture and probable cord contusion at C4-C6. 2. Multiple fractures sustained in a fall listed above, subdural hematoma, pelvic hematoma 3. Mobile mass on the mitral valve-possible clot versus vegetation. Currently on anticoagulation and vancomycin and Rocephin for 6 weeks 4. History of mitral valve and tricuspid valve repairs 5. Chronic longstanding persistent atrial fibrillation 6. Chronic anticoagulation with warfarin 7. Polycythemia vera with leukocytosis, microcytic anemia and thrombocytosis. Has required bloodletting in the past. 8. History of a maze procedure and placement of a left atrial appendage closure device 9. Essential hypertension 10. History of GI bleed 11. Foraminal stenosis of the cervical spine at C4-C5 12. Incidental thyroid nodule, 2.2 cm, discovered on a CT scan of the neck-we will need follow-up as an outpatient 13. Pulmonary hypertension secondary to valvular heart disease PLAN PT for gait stability OT for ADL's Analgesics as needed Bowel protocol Fall precautions Assess for Anxiety/Depression GI prophylaxis with pantoprazole Full dose Lovenox, 60 mg subcu every 12 hours, for anticoagulation until she is therapeutic on warfarin which was recently restarted Follow up with PCP, cardiology, orthopedics following DC from [facility] AM lab including CMP, CBC, Mag, dig level and Phos Daily PT/INR Inpatient E&M: 80238 Init Hosp L3
[2020-04-27] MEDS: Enoxaparin 60 MG/0.6 ML Syringe SC ×2 (09:02→21:43)
[2020-04-27] MEDS: Aspirin 81 MG TAB.CHEW PO (09:02)
[2020-04-27 09:03] VITALS: PULSE 78
[2020-04-27] MEDS: Hydroxyurea 500 MG Capsule PO (09:03)
[2020-04-27] MEDS: Pantoprazole Sodium 40 MG Tablet PO (09:03)
[2020-04-27] MEDS: Furosemide 20 MG Tablet PO (09:03)
[2020-04-27] MEDS: Digoxin 125 MCG Tablet PO (09:03)
[2020-04-27 09:33] VITALS: BP 119/73; PULSE 96; RESP 16; TEMP 36.8; O2SAT 98
[2020-04-27] MEDS: Vancomycin IV 1,000 MG/200 ML BAG 200 MG IV ×2 (10:05→22:36)
--- NOTE | 2020-04-27 12:24 | PCM.RU.PYE ---
Admission Information Primary Diagnosis:: Debility secondary to a fall resulting in a left clavicle fracture, subdural hematoma, left superior ramus fracture and left acetabulum fracture. Status Changes from Prescreening?: No changes Identified Actual Problem List:: Falls, Pain, ALteration in Cmfrt, Mobility Impaired, Self Care Deficit, BP, Hypertension, Alteration-Leisure Activ. Potential Problem List:: DVT, Bleeding, Infection, UTI, Aspiration, Falls, Skin Integrity, Depression Risk of Complications DVT: LMWH, YUNIOR Hose Bleeding: Monitor Lab Values, Nursing to Teach Precautions for anti-coagulation therapy., Wound, if applicable, to be assessed every shift., Stroke patients assessed for lethargy or change in status. Infection: Clinical Staff to Monitor for S/S of infection:, S/S of infection include fever, redness, warmth, etc. Urinary Tract Infection: Monitor for frequency, burning, discomfort, or incontinence., Nursing will obtain urine sample for urinalysis and C&S when ordered. Aspiration: Clinical staff will monitor for coughing, drooling, congestion., Speech will evaluate swallowing and dsyphasia., Nursing will monitor patient swallowing during meals. Falls: Patient will be evaluated for Fall Precautions, Patient will be placed on Fall Precautions as indicated per protocol. Skin Breakdown: Nursing will assess skin daily using assessment tool., Nursing will place on Skin Breakdown Precautions as indicated. Pain: Clinical staff will assess patient's pain level per protocol., Medications will be given, if needed, and the pain level reassessed., Other methods: Massage, distraction, decrease stimulus, etc. used PRN. Plan of Care Patient requires physician specializing in physical medicine and rehab oversight to provide close medical supervision of rehab issues including: Pain Management, Sleep Problems, Bowel and Bladder, Medical and co-morbidity Management, DVT prophylaxis, Rehabilitation Leadership, Coordination of treatment team Patient needs Physical Therapy: For a minimum of 1 hour, At least 5 out of 7 days Patient needs Physical Therapy to improve:: Mobility, Mobility, Mobility, Strengthening, Transfers, Stretching, ROM, Endurance, Stairs, Gait, Balance Patient needs Occupational Therapy: For a minimum of 1 hour, At least 5 out of 7 days Patient needs Occupational Therapy to improve ADL's incl.: Eating, Grooming, Bathing, Dressing, Toileting, Toilet transfers, Community Reintegration, Higher functioning activities, Household tasks, Adaptive Equipment, Splinting, Other activities as determined Patient requires 24/7 Rehabilitation Nursing for: Pain Issues, Identifying and preventing risk factors, Monitoring and reporting current medical conditions, Assisting with ambulation, transfer, and all ADL's, Teaching patients about disease process and medications, Family teaching, Providing safe environment, Bowel and Bladder Issues, Skin integrity, Medication Management Patient needs Cellophane Bag Machine Operator/ Case Management for: Discharge Planning, Arranging Home Equipment or Services, Family Interventions Patient needs Dietary and Nutrition Services for: Adequate Nutrition, Nutritional Supplements, Nutritional Education Goals Patient will remain: free from falls, or injury at time of discharge. Patient will perform bed mobility at: MOD I level of assist. Patient will complete transfers from bed to chair at: MOD I level of assist. Patient will ambulate: with MOD I assist, with LRD, - - 150 feet Patient will complete upper body dressing at: MOD I level of assist. Patient will complete lower body dressing at: MOD I level of assist. Patient will complete toileting at: MOD I level of assist. Patient will perform bathing at: MOD I level of assist. Patient will complete grooming at: MOD I level of assist. Patient will complete home management skills at: MOD I level of assist. Patient will achieve: at MOD I assist, - - 1 large step Patient will have pain level of: of 3 or less Patient's skin will: remain intact, free from infection. Patient will receive: adequate nutrition. Discharge Planning Pt Prognosis for Sig. Practical Improv. w/in Reasonable Time: Good Estimated Length of stay (days): 12 - 10 to 14 days Anticipated D/C Destination: Home with Home Health
[2020-04-27 13:33] VITALS: PULSE 96
[2020-04-27] MEDS: traMADol 50 MG Tablet PO (13:33)
--- NOTE | 2020-04-27 15:02 | CHAPLAIN ---
Type of Pastoral Visit _x__ Initial Visit ___ Follow-up Visit ___ On-call Visit ___ General Patient Visit ___ Spiritual Assessment ___ Family Conference ___ Bereavement ___ Rapid Response ___ Code Blue ___ Other (describe below) Pastoral Care Referral From _x__ Patient ___ Family ___ Nurse ___ Physician ___ Filter Tank Tender Helper Head ___ Manager Eligibility ___ Other (describe below) Sacrament/Intervention _x__ Active listening ___ Anointing ___ Pentecostal ___ Bereavement ___ Communion ___ Savana exploration ___ _x__ Life review _x__ Prayer ___ Reconciliation ___ Sacrament of Sick _x__ Supportive presence ___ Wedding ___ Other (describe below) Pastoral Comments
[2020-04-27 21:44] VITALS: PULSE 75
[2020-04-27] MEDS: Acetaminophen 325 MG Tablet 650 MG PO (21:46)
[2020-04-27] MEDS: 0.9% Saline Lock 10 ML Syringe IV (21:49)
[2020-04-27 22:00] VITALS: BP 98/58; PULSE 78; RESP 16; TEMP 36.8; O2SAT 96
[2020-04-28] VITALS (7 sets, daily range): BP systolic 98–105; BP diastolic 54–67; PULSE 68–87; RESP 16; TEMP 36.5–36.7; O2SAT 93–97
[2020-04-28] MEDS: 0.9% Saline Lock 10 ML Syringe IV ×2 (00:10→21:23)
[2020-04-28] MEDS: Metoprolol Tartrate 25 MG Tablet 12.5 MG PO ×3 (05:32→21:23)
[2020-04-28 06:10] LABS: International Normalized Ratio 1.6; Prothrombin Time (Protime)PT. 18.2 SECONDS (11.7-14.9)
[2020-04-28] MEDS: Aspirin 81 MG TAB.CHEW PO (07:57)
[2020-04-28] MEDS: Digoxin 125 MCG Tablet PO (07:58)
[2020-04-28] MEDS: Hydroxyurea 500 MG Capsule PO (07:58)
[2020-04-28] MEDS: Furosemide 20 MG Tablet PO (07:59)
[2020-04-28] MEDS: Pantoprazole Sodium 40 MG Tablet PO (07:59)
[2020-04-28] MEDS: Enoxaparin 60 MG/0.6 ML Syringe SC ×2 (07:59→21:24)
[2020-04-28] MEDS: Acetaminophen 325 MG Tablet 650 MG PO (08:00)
--- NOTE | 2020-04-28 09:44 | PCM.PN.BLA ---
Progress Note Afebrile VSS-blood pressures ranged from 91/62 at admission to 127/68. She denies lightheadedness. Heart rate is controlled. Maintaining appropriate oxygen saturation on RA Oral intake is poor to fair Discussed with nursing - no problems that need addressed Reviewed the PT/OT notes Medication list reviewed. INR today is 1.6. She is receiving warfarin 5 mg p.o. daily and Lovenox 60 mg subcu every 12 hours. Vancomycin trough is pending. She denies lightheadedness, cephalgia, nausea/vomiting, abdominal pain, dysuria. Pain is adequately controlled. She is ambulating in the mercado with a hemiwalker. Third, oriented x3, examined in the therapy room. She appears in no acute distress. Lungs are diminished throughout. They are especially diminished in the bases. She has minimal bibasilar coarse crackles and no wheezing. No conversational dyspnea, not tachypneic, no accessory muscle use. Heart, irregular irregular with controlled ventricular response, no gallop, no rub, no murmur Abdomen-soft, nontender, nondistended, bowel sounds heard in all 4 quadrants No peripheral edema No calf pain ImPression's 1. Physical debility secondary to multiple injuries sustained in a fall 2. Polycythemia vera 3. Endocarditis 4. 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 Atrial fibrillation-on chronic anticoagulation with warfarin. Rate controlled with digoxin and low-dose metoprolol. Continue Lovenox and Coumadin until the INR is greater than 2 and then will discontinue Lovenox. Consult Dr. Crenshaw to manage antibiotics Continue Rocephin and vancomycin BMP and CBC once weekly while on antibiotics Start a probiotic STROKE Vital Signs/Narrative: Vital Signs Temp Pulse Resp BP Pulse Ox 04/28/20 09:22 97.7 F L 87 16 105/67 97 04/28/20 07:58 72 Inpatient E&M: 35354 Subs Hosp L2
[2020-04-28 10:08] LABS: Vancomycin, Trough Level 28.7 ug/mL (5.0-15.0)
--- NOTE | 2020-04-28 10:53 | CASEMGMT ---
Social Work Completed PHQ-9 with pt. Score: 09/16. Pt reports no issues. Moramia Jarquin, TANK BUILDER SUPERVISOR EPIC KALEIDOSCOPE ANALYST
--- NOTE | 2020-04-28 11:01 | NURSING ---
vancomycin trough obtained this am by lab. vanco trough noted to be 28.7. This nurse called Alvin from pharmacy. Alvin advised this nurse to hold vancomycin 1000 dose at this time. pharmacist to review further vanc doses.
--- NOTE | 2020-04-28 12:23 | PCM.RX.CS ---
Consult Pharmacy has been consulted to manage selected antiobiotic: Vancomycin Type of Consult: Follow-up Labs: Sodium 136 mmol/L (136-145) 04/27/20 05:25 Potassium 3.9 mmol/L (3.5-5.1) 04/27/20 05:25 Chloride 101 mmol/L (98-107) 04/27/20 05:25 Carbon Dioxide 29.0 mmol/L (21.0-32.0) 04/27/20 05:25 Anion Gap 6 (5-15) 04/27/20 05:25 BUN 12 mg/dL (7-18) 04/27/20 05:25 Creatinine 0.71 mg/dL (0.55-1.02) 04/27/20 05:25 Est GFR (MDRD) Af Amer 105 mL/min (>60) 04/27/20 05:25 Est GFR (MDRD) Non-Af 87 mL/min (>60) 04/27/20 05:25 BUN/Creatinine Ratio 16.9 RATIO (-20) 04/27/20 05:25 Glucose 84 mg/dL (74-106) 04/27/20 05:25 Vancomycin Trough 28.7 ug/mL (5.0-15.0) H 04/28/20 09:20 Microbiology: Microbiology 04/27/20 08:45 Stool Stool Occult Blood (COLIN) - Final Pharmacy Plan for Drug Dosing: VANCOMYCIN LEVEL RECEIVED Current Vancomycin Dose: 1000mg IV Q12h (was previously on this dose prior to admission) Number of Doses Received: 3 doses here Vancomycin Level: 28.7 Hours Since Last Dose: 11 Renal Function: 0.71 (04/27 labs). no new labs ordered at this time Renal Function Trend: n/a Lab/Micro: no micro taken this admission Vancomycin Plan/Comments: HOLD vancomycin due to trough >20. Will hold subsequent doses until trough returns to < 20. Pending Level:*RANDOM* level 04/29 with AM labs to assess dosing at this time Pharmacy Service will continue to monitor and adjust dosing as required.
--- NOTE | 2020-04-28 14:42 | PCM.HP.ID ---
Problem List (1) Endocarditis Status: Acute Qualifiers: Endocarditis type: unspecified Chronicity: acute Qualified Code(s): I33.9 - Acute and subacute endocarditis, unspecified Comment: She has a floppy mass on the mitral valve and it is unknown if this is a clot or vegetation. Reason for Consult: endocarditis Consulted by: Dr. Nuñez History of Present Illness: The patient is a 69 year old [place] woman with a past medical history of mitral valve and tricuspid valve repair, maze procedure, history of left atrial appendage closure device, l longstanding persistent atrial fibrillation, history of GI bleed, chronic anticoagulation with warfarin, polycythemia vera, secondary pulmonary hypertension with recent echocardiogram at [facility] showing a right ventricular systolic pressure of 70 mmHg, essential hypertension and history of a total hysterectomy who presented to the [facility] emergency department on 04/14/2020 after a fall. She tells me that she does not remember falling. She felt dizzy and the next thing she knew she was on the ground. Work-up at [facility] showed a left anterior acetabular fracture, left superior and inferior pubic rami fractures and a left nondisplaced clavicle fracture. She was transferred to [facility]. CASSANDRA showed possible veg. Bcx were neg. Seen by Dr. Delgado with ID, started on empiric 6 week course of iv vanc and ceftriaxone via picc, stop date 06/02/20. Feeling ok here, no issues with picc, no fever, no n/v/d. Full ROS performed and neg except as noted above. - Medical History Past Medical History (Chronic Problems): Chronic Problems (Last Reviewed 04/28/20 @ 09:[address] Kat Nuñez, DO) Microcytic anemia (Chronic) Leukocytosis (Chronic) Thrombocytosis (Chronic) Chronic anticoagulation (Chronic) Presence of left atrial appendage closure device composed of nickel-titanium alloy with polyethylene terephthalate membrane (Chronic 09/27/19) Size [address] Darion GILLESPIE H/O maze procedure (Chronic 09/27/19) Biatrial Cryomaze Dr. Darion GILLESPIE S/P tricuspid valve repair (Chronic 09/27/19) Clinton MC3 Tricuspid ring size 30 Dr. Darion GILLESPIE S/P mitral valve repair (Chronic 09/27/19) Stephanie Mitral Ring #35 Dr. Darion Steinberg [facility] History of transesophageal echocardiography (CASSANDRA) (Chronic 08/18/19) Posterior leaflet mitral valve prolapse. Severe (4+) mitral valve insufficiency. Moderately severe (3+) tricuspid valve insufficiency. Right ventricular systolic pressure estimated to be 53 mmHg. Moderate pulmonary hypertension. Pt appears to be in atrial fibrillation. History of right and left heart catheterization (Chronic 08/18/19) Normal coronary arteries; Perserved Left Ventricular systolic function with normal EDP; Normal LV size, wall motion,and systolic function; LVEF: by LV gram 65 %; Mitral Valve Insufficiency: Severe; The patient has pulmonary hypertension which is severe. Right heart pressures - severely elevated. Surgery consult for valvular disease, Increase lasix to 40mg po daily. Longstanding persistent atrial fibrillation (Chronic) History of GI bleed (Chronic) Secondary pulmonary hypertension (Chronic) Moderate: RVSP 70 mmhg per echo done @ [facility] in March 2020 Nonrheumatic mitral valve regurgitation (Chronic) Moderate (2-3+) per echo 10/14/18 done @ [facility] [place]. Mild thickening, mild calcification, mild prolapse of anterior and posterior mitral leaflets Nonrheumatic tricuspid (valve) insufficiency (Chronic) Mild (1+) per echo 10/14/18 done @ [facility] [place]. Polycythemia vera (Chronic) Receives phlebotomy treatments per Dr. Neves, [facility] Essential hypertension (Chronic) History of total hysterectomy (Chronic) Allergies/Adverse Reactions: Allergies egg Adverse Reaction (Intermediate, Verified 04/14/20 13:18) GI upset chocolate Adverse Reaction (Intermediate, Uncoded 04/14/20 13:18) GI upset Home Medications: Ambulatory Orders Medication Instructions Recorded Hydroxyurea 500 mg PO DAILY 09/03/18 Metoprolol Tartrate 12.5 mg PO TID 04/26/20 - Social History Tobacco Use: non-smoker Vital Signs Temp Pulse Resp BP Pulse Ox 97.7 F L 68 16 105/67 97 04/28/20 09:22 04/28/20 14:22 04/28/20 09:22 04/28/20 09:22 04/28/20 09:22 Oxygen Delivery Method Room Air Weight: 62.7 kg Body Mass Index (BMI) 25.2 Microbiology Past 72 Hours 04/27/20 08:45 Stool Occult Blood (COLIN) - Final Stool Laboratory Tests Past 24 Hrs 04/28/20 04/28/20 05:25 09:20 PT 18.2 H INR 1.6 Vancomycin Trough 28.7 H - Other Studies Radiology: [] reviewed Other Studies: [] Route of nutrition/ use of supplements: [] Nutritional Intake: [] IV Site: [] Schreiber Catheter: [] - Physical Exam General: Alert, Oriented x3, Cooperative, No apparent distress HEENT: Atraumatic, PERRLA, EOMI Neck: Supple, No Nodes Lungs: Clear to auscultation, Normal air movement Cardiovascular: Regular rate, Regular Rhythm Abdomen: Soft, Non Tender, Non-Distended Extremities: No edema Skin: No rashes IV Site: PICC, without redness Musculoskeletal: No Tenderness to Palpation of Joints or Extremities Neurological: Cranial nerves II-XII grossly intact - Assessment/Plan Antibiotics: [] Assessment/Plan: [] Active and Suspected Problems (Last Reviewed 04/28/20 @ 09:[address] Kat Nuñez, DO) Foraminal stenosis of cervical region (Acute) Severe at C4-C5 Thyroid nodule (Acute) 2.2 cm discovered incidentally on CT scan of the cervical spine for C2 fracture. Will need follow-up Endocarditis (Acute) She has a floppy mass on the mitral valve and it is unknown if this is a clot or vegetation. Subdural hematoma (Acute) Pelvic hematoma (Acute) Contusion of cervical cord (Suspected) Abnormal signal on MRI on the right aspect of the cervical cord at C4-5 and C5-6-most likely contusion secondary to recent fall and fracture of C2 with spondylolisthesis of C2. Subtherapeutic international normalized ratio (INR) (Acute) Closed left clavicular fracture (Acute) Fracture of left superior pubic ramus (Acute) Left acetabular fracture (Acute) Syncope and collapse (Acute) suspected endocarditis - reviewed records from [facility] and [facility]. Cont vanc/ceftriaxone as planned with stop date 06/02/20. Vanc dose being adjusted here due to high trough. Will follow, thank you, d/w Dr. Nuñez
--- NOTE | 2020-04-28 15:51 | CASEMGMT ---
Social Work Spoke with pt's son about IV ATBs and DC plans. Explained the IVs are Q8 and typically patient's remain in the unit throughout the duration the treatment. Explained [facility] nurse would not be able to come out twice a day to administers IVs but nursing could teach a family member, if able. Explained it depends on [facility] [employer] payment for the length of her stay. Offered to have conference call for son while at work for Team meetings so he can be involved in pt's progress, ask questions to dr about IVs, etc. Son agreed and appreciative. Spoke with Marcello Diaz liaison to collaborate. Liaison spoke with [employer] and they have initially 10-14 days and provided son with places to get needed DME. Liaison unable to attend Team meeting but SW to update on LOS. Will continue to follow. JEAN-PAUL Frazier
[2020-04-29] VITALS (8 sets, daily range): BP systolic 92–113; BP diastolic 52–67; PULSE 67–88; RESP 14–16; TEMP 36.5–36.7; O2SAT 94–97
[2020-04-29] MEDS: Metoprolol Tartrate 25 MG Tablet 12.5 MG PO ×3 (05:52→20:58)
[2020-04-29] MEDS: Pantoprazole Sodium 40 MG Tablet PO (07:46)
[2020-04-29] MEDS: Aspirin 81 MG TAB.CHEW PO (07:46)
[2020-04-29] MEDS: Digoxin 125 MCG Tablet PO (07:47)
[2020-04-29] MEDS: Furosemide 20 MG Tablet PO (07:47)
[2020-04-29] MEDS: Enoxaparin 60 MG/0.6 ML Syringe SC ×2 (07:48→20:58)
[2020-04-29] MEDS: Hydroxyurea 500 MG Capsule PO (07:49)
[2020-04-29 09:11] LABS: International Normalized Ratio 1.7; Prothrombin Time (Protime)PT. 19.7 SECONDS (11.7-14.9)
[2020-04-29 09:35] LABS: Vancomycin, Random Level 13.8 ug/mL (0.0-15.0)
[2020-04-29 10:07] LABS: Creatinine, Serum 0.88 mg/dL (0.55-1.02); EST Glomerular Filtration Rate 68 mL/min (>60); Est Glom Filt Rate - Afr Amer 82 mL/min (>60); Estimated Creatinine Clearance 47.72 ml/min
[2020-04-29] MEDS: Vancomycin IV 500 MG/100 ML BAG 100 MG IV ×2 (11:58→23:35)
--- NOTE | 2020-04-29 12:09 | PCM.RX.CS ---
Consult Pharmacy has been consulted to manage selected antiobiotic: Vancomycin Type of Consult: Follow-up Suspected Infection: Endocarditis Prior Doses of Antibiotics Received/Current Regimen: The patient had been on vancomycin 1000mg IV q12h prior to admission and then that was continued upon admission. However, that has been held since the last dose on 04/27/20 at 22:36 due to the high trough yesterday morning. Labs: Sodium 136 mmol/L (136-145) 04/27/20 05:25 Potassium 3.9 mmol/L (3.5-5.1) 04/27/20 05:25 Chloride 101 mmol/L (98-107) 04/27/20 05:25 Carbon Dioxide 29.0 mmol/L (21.0-32.0) 04/27/20 05:25 Anion Gap 6 (5-15) 04/27/20 05:25 BUN 12 mg/dL (7-18) 04/27/20 05:25 Creatinine 0.88 mg/dL (0.55-1.02) 04/29/20 08:45 Est GFR (MDRD) Af Amer 82 mL/min (>60) 04/29/20 08:45 Est GFR (MDRD) Non-Af 68 mL/min (>60) 04/29/20 08:45 BUN/Creatinine Ratio 16.9 RATIO (10-20) 04/27/20 05:25 Glucose 84 mg/dL (74-106) 04/27/20 05:25 Vancomycin Trough 28.7 ug/mL (5.0-15.0) H 04/28/20 09:20 Random Vancomycin 13.8 ug/mL (0.0-15.0) 04/29/20 08:45 Microbiology: Microbiology 04/27/20 08:45 Stool Stool Occult Blood (COLIN) - Final Weight used for dosin.7 kg Estimated Creatinine Clearance: 48 ml/min Goal Trough: 15-20 mcg/mL Pharmacy Plan for Drug Dosing: The vancomycin random level obtained this morning at 08:45 came back as 13.8. This has gone down from yesterday morning's trough level of 28.7. Since it is back down below 20, dosing can be resumed but will decrease to 500mg IV q12h. Will check a trough level again before the 4th dose tomorrow night. Pharmacy Service will continue to monitor and adjust dosing as required. Follow-Up Labs: Trough Vancomycin Labs to be done on [date and time ordered]: 04/30/20 23:30
[2020-04-29] MEDS: 0.9% Saline Lock 10 ML Syringe IV (21:25)
--- NOTE | 2020-04-29 23:02 | NURSING ---
2302-connieo ended 1258 pm 04/29/2020 by dayshift and not documented completed on sep. RN completed at this time.
[2020-04-30] VITALS (9 sets, daily range): BP systolic 98–113; BP diastolic 58–65; PULSE 70–86; RESP 16–18; TEMP 36.6–36.8; O2SAT 96–97
[2020-04-30] MEDS: Metoprolol Tartrate 25 MG Tablet 12.5 MG PO ×3 (05:43→22:00)
[2020-04-30 06:22] LABS: International Normalized Ratio 1.9
[2020-04-30] MEDS: Aspirin 81 MG TAB.CHEW PO (09:08)
[2020-04-30] MEDS: Pantoprazole Sodium 40 MG Tablet PO (09:08)
[2020-04-30] MEDS: Hydroxyurea 500 MG Capsule PO (09:10)
[2020-04-30] MEDS: Digoxin 125 MCG Tablet PO (09:11)
[2020-04-30] MEDS: Furosemide 20 MG Tablet PO (09:11)
[2020-04-30] MEDS: 0.9% Saline Lock 10 ML Syringe IV ×4 (09:12→22:50)
[2020-04-30] MEDS: Enoxaparin 60 MG/0.6 ML Syringe SC ×2 (09:14→21:02)
--- NOTE | 2020-04-30 10:58 | PCM.PN.BLA ---
Progress Note Afebrile Vital signs stable, heart rate is well controlled and blood pressure is within normal limits. INR is slowly creeping up and is 1.9 today. She has no complaints. Alert, oriented x3, no apparent distress Lungs-coarse crackles in the bases with diminished air exchange, no conversational dyspnea Heart-irregular with controlled ventricular response No ankle edema Impressions 1. Physical debility secondary to recent fall resulting in left superior and inferior pubic rami fracture, anterior left acetabular fracture and left clavicle fracture 2. Pelvic hematoma 3. Subdural hematoma-no cephalgia 4. Severe pulmonary hypertension 5. Longstanding persistent atrial fibrillation-rate controlled 6. Chronic anticoagulation with warfarin-still subtherapeutic 7. Polycythemia vera Give an extra 2 mg of warfarin today for a total of 7 mg of warfarin today. I hope to discontinue Lovenox in the a.m. Weekly BMP/CBC/ESR. Vancomycin troughs per Dr. Crenshaw PT/INR in the a.m. STROKE Vital Signs/Narrative: Vital Signs Temp Pulse Resp BP Pulse Ox 04/30/20 10:35 96 04/30/20 10:00 18 04/30/20 09:11 83 04/30/20 08:41 98.2 F 83 16 113/65 96 Inpatient E&M: 41209 Subs Hosp L1
[2020-04-30] MEDS: Acetaminophen 325 MG Tablet 650 MG PO (11:44)
[2020-04-30] MEDS: Vancomycin IV 500 MG/100 ML BAG 100 MG IV ×2 (11:44→23:58)
[2020-04-30] MEDS: Jantoven 2 MG Tablet PO (16:34)
[2020-05-01] VITALS (7 sets, daily range): BP systolic 98–120; BP diastolic 56–69; PULSE 75–98; RESP 12–17; TEMP 36.7; O2SAT 93–99
[2020-05-01 00:23] LABS: Vancomycin, Trough Level 15.2 ug/mL (5.0-15.0)
--- NOTE | 2020-05-01 05:05 | PCM.RX.CS ---
Consult Pharmacy has been consulted to manage selected antiobiotic: Vancomycin Type of Consult: Follow-up Labs: Sodium 136 mmol/L (136-145) 04/27/20 05:25 Potassium 3.9 mmol/L (3.5-5.1) 04/27/20 05:25 Chloride 101 mmol/L (98-107) 04/27/20 05:25 Carbon Dioxide 29.0 mmol/L (21.0-32.0) 04/27/20 05:25 Anion Gap 6 (5-15) 04/27/20 05:25 BUN 12 mg/dL (7-18) 04/27/20 05:25 Creatinine 0.88 mg/dL (0.55-1.02) 04/29/20 08:45 Est GFR (MDRD) Af Amer 82 mL/min (>60) 04/29/20 08:45 Est GFR (MDRD) Non-Af 68 mL/min (>60) 04/29/20 08:45 BUN/Creatinine Ratio 16.9 RATIO (-20) 04/27/20 05:25 Glucose 84 mg/dL (74-106) 04/27/20 05:25 Vancomycin Trough 15.2 ug/mL (5.0-15.0) H 04/30/20 23:35 Random Vancomycin 13.8 ug/mL (0.0-15.0) 04/29/20 08:45 Microbiology: Microbiology 04/27/20 08:45 Stool Stool Occult Blood (COLIN) - Final Goal Trough: 15-20 mcg/mL Pharmacy Plan for Drug Dosing: Pharmacy Service will continue to monitor and adjust dosing as required. TROUGH 15.2 NO CHANGES Follow-Up Labs: Trough Vancomycin Labs to be done on [date and time ordered]: 05/04 @ [id number]
[2020-05-01 06:12] LABS: International Normalized Ratio 2.2; Prothrombin Time (Protime)PT. 23.6 SECONDS (11.7-14.9)
[2020-05-01] MEDS: Metoprolol Tartrate 25 MG Tablet 12.5 MG PO ×3 (06:53→22:15)
[2020-05-01] MEDS: Pantoprazole Sodium 40 MG Tablet PO (08:18)
[2020-05-01] MEDS: Aspirin 81 MG TAB.CHEW PO (08:18)
[2020-05-01] MEDS: Hydroxyurea 500 MG Capsule PO (08:18)
[2020-05-01] MEDS: Furosemide 20 MG Tablet PO (08:18)
[2020-05-01] MEDS: Digoxin 125 MCG Tablet PO (08:19)
--- NOTE | 2020-05-01 08:40 | PCM.PN.BLA ---
Progress Note Lakeisha was seen on team rounds today. Her son Franklyn participated by phone. Afebrile VSS Maintaining appropriate oxygen saturation on RA Oral intake is good when she is strongly encouraged to increase her fluid intake but poor if nursing is not constantly reminding her. Discussed with nursing - no problems that need addressed Reviewed the PT/OT/ST notes Medication list reviewed. INR is 2.2 today. Vancomycin trough was appropriate on 04/30/2020 at 15.2. CAD denies dizziness, lightheadedness, chest pain, shortness of breath, cough, nausea/vomiting, abdominal pain. Her pain is adequately controlled with Tylenol. She has not had any tramadol since 04/27/2020. Alert, oriented x3, appropriate, no apparent distress sitting in the chair. Mucous membranes are a tad dry, no mucosal lesions Lungs-inspiratory effort is less than maximal, persistent coarse crackles bibasilar, no wheezing, not tachypneic, no conversational dyspnea, denies dyspnea on exertion, orthopnea or shortness of breath at rest. No accessory muscle use. I suspect the crackles are probably chronic. Heart-irregular with controlled ventricular response, no gallop Abdomen-soft, nontender, nondistended, bowel sounds present No calf pain No skin breakdown or rashes. Impressions 1. Physical debility secondary to recent fractures of the left superior and inferior rami, left acetabulum and left clavicle. 2. Longstanding persistent atrial fibrillation-rate controlled 3. Chronic anticoagulation with warfarin-the INR is therapeutic today at 2.2 so will discontinue Lovenox. 4. Microcytic anemia-acute on chronic. She does have a pelvic hematoma and also a subdural hematoma which is likely responsible for the acute blood loss. I suspect she is iron deficient but she has had to have phlebotomies in the past due to polycythemia. Recent Hemoccult stool was negative. 5. Polycythemia vera Discontinue Lovenox CBC, BMP, ESR and vancomycin trough on . Franklyn's questions were answered to the best of our ability. They would like to have here home as soon as possible but, I explained there is really no way to know if the MV mass is a clot or a vegetation and so she needs to have the antibiotics. Options would be (1) teaching the family to give the antibiotics (they would have to bring her for Vanco troughs and weekly BMP, CBC and ESR), (2) have the family bring her to the infusion center twice a day for antibiotics (not very practical), (3) when ready transfer to SNF/TCU to finish the antibiotics at a lower cost per day. Franklyn would like to know if Dr. Crenshaw would consider giving oral antibiotics for the last 2 weeks? Will discuss with Dr. Crenshaw. STROKE Vital Signs/Narrative: Vital Signs Pulse BP 05/01/20 08:19 82 05/01/20 06:53 80 120/69 Inpatient E&M: 99524 Subs Hosp L2
--- NOTE | 2020-05-01 10:32 | CASEMGMT ---
Social Work IDT met with patient and son via conference call for Team Meeting. Discussed patient's progress in therapy. Pt is ambulating 100 ft with HW at [facility], completed 5 steps with 1HR at C[facility] - needs to be able to do buggy step which is very high. Pt is Josh for dressing and bathing d/t left arm in sling. ST working with pt on memory, word fining and med management. Recommending assistance with med management. Nursing explained pt is on IV ATB with 4 meds Q8 and vanc requires labs every few days. recommending pt remain in RU until end of IVs, but will contact I.D. to request 4 weeks of IVS and the final 2 weeks P.O. so pt can return home. Family and pt want to be home as soon as possible. Will ReTeam next week and discuss progress and outcome of IVs. Will continue to follow. Moraima Jarquin, LEAD FABRICATOR MEDICAL RECORDS CODER
[2020-05-01] MEDS: Vancomycin IV 500 MG/100 ML BAG 100 MG IV ×2 (12:19→23:13)
[2020-05-01 16:03] LABS: Ferritin 30 ng/mL (8-252); Iron 15 ug/dL (50-170); Iron Binding Capacity,Total 356 ug/dL (250-450); PERCENT IRON SATURATION 4.2 % (15.0-55.0)
[2020-05-01] MEDS: Acetaminophen 325 MG Tablet 650 MG PO (22:19)
[2020-05-01] MEDS: 0.9% Saline Lock 10 ML Syringe IV (22:21)
[2020-05-02] VITALS (7 sets, daily range): BP systolic 112–114; BP diastolic 65–69; PULSE 72–92; RESP 16–18; TEMP 36.3–36.9; O2SAT 94–97
[2020-05-02] MEDS: Metoprolol Tartrate 25 MG Tablet 12.5 MG PO ×3 (05:22→21:36)
[2020-05-02] MEDS: Digoxin 125 MCG Tablet PO (07:38)
[2020-05-02] MEDS: Pantoprazole Sodium 40 MG Tablet PO (07:38)
[2020-05-02] MEDS: Furosemide 20 MG Tablet PO (07:38)
[2020-05-02] MEDS: Hydroxyurea 500 MG Capsule PO (07:38)
[2020-05-02] MEDS: Aspirin 81 MG TAB.CHEW PO (07:38)
[2020-05-02] MEDS: 0.9% Saline Lock 10 ML Syringe IV (09:24)
--- NOTE | 2020-05-02 10:22 | PN.ID_ITS ---
Patient Problems: Active and Suspected Problems (Last Reviewed 04/28/20 @ 09:[address] Kat Nuñez, DO) Foraminal stenosis of cervical region (Acute) Severe at C4-C5 Thyroid nodule (Acute) 2.2 cm discovered incidentally on CT scan of the cervical spine for C2 fracture. Will need follow-up Endocarditis (Acute) She has a floppy mass on the mitral valve and it is unknown if this is a clot or vegetation. Subdural hematoma (Acute) Pelvic hematoma (Acute) Contusion of cervical cord (Suspected) Abnormal signal on MRI on the right aspect of the cervical cord at C4-5 and C5-6-most likely contusion secondary to recent fall and fracture of C2 with spondylolisthesis of C2. Subtherapeutic international normalized ratio (INR) (Acute) Closed left clavicular fracture (Acute) Fracture of left superior pubic ramus (Acute) Left acetabular fracture (Acute) Syncope and collapse (Acute) Subjective: Feeling fine, no fever, no n/v/d - Physical Exam Vitals/I&O's: Vital Signs Temp Pulse Resp BP Pulse Ox 98.4 F 72 16 114/65 94 05/02/20 07:35 05/02/20 07:38 05/02/20 07:35 05/02/20 07:35 05/02/20 07:35 Oxygen Delivery Method Room Air Weight: 62.7 kg Body Mass Index (BMI) 25.2 Intake and Output for Last 24 Hours 04/30/20 05/01/20 05/02/20 23:59 23:59 23:59 Intake Total 1940 / 1940 1520 / 1520 600 / 600 Output Total 500 / 500 350 / 350 800 / 800 Balance 1440 / 1440 1170 / 1170 -200 / -200 General: Alert, Cooperative, No apparent distress Lungs: Clear to auscultation, Normal air movement Cardiovascular: Regular rate, Regular Rhythm Abdomen: Soft, Non Tender, Non-Distended Skin: No rashes Laboratory Results 05/01/20 05:30: Iron 15 L, TIBC 356, Iron Saturation 4.2 L, Ferritin 30 Current Medications Acetaminophen (Tylenol) 650 mg PO Q6H PRN PRN PRN Reason: Pain Score 1-04/29 Last Admin: 05/01/20 22:19 Dose: 650 mg Documented by: Aspirin (Aspirin, Baby) 81 mg PO DAILY@0800 [facility] Last Admin: 05/02/20 07:38 Dose: 81 mg Documented by: Bisacodyl (Dulcolax) 10 mg RECTAL .PRN X 1 PRN PRN Reason: Constipation Colchicine (Colchicine) 0.6 mg PO DAILY [facility] Last Admin: 05/02/20 07:38 Dose: 0.6 mg Documented by: Digoxin (Lanoxin) 125 mcg PO DAILY [facility] Last Admin: 05/02/20 07:38 Dose: 125 mcg Documented by: Furosemide (Lasix) 20 mg PO DAILY [facility] Last Admin: 05/02/20 07:38 Dose: 20 mg Documented by: Hydroxyurea (Hydrea) 500 mg PO DAILY [facility] Last Admin: 05/02/20 07:38 Dose: 500 mg Documented by: Ceftriaxone Sodium 2 gm/ (Sodium Chloride) 50 mls @ 100 mls/hr IV Q12 [facility] Last Infusion: 05/02/20 10:20 Dose: Infused Documented by: Sodium Chloride () 250 mls @ 15 mls/hr IV .[id number] PRN PRN Reason: Saline Flush Sodium Chloride () 250 mls @ 15 mls/hr IV .[id number] PRN PRN Reason: Saline Flush Sodium Chloride () 250 mls @ 15 mls/hr IV .[id number] PRN PRN Reason: Additional IVPB Infusion Vancomycin IV Pharmacy to Dose (1 ea/ Sodium Chloride) 500 mls @ 250 mls/hr IV X1 PRN; Protocol PRN Reason: Rx to Dose Vancomycin HCl () 500 mg in 100 mls @ 100 mls/hr IV Q12H [facility] Last Infusion: 05/02/20 00:48 Dose: Infused Documented by: Lactobacillus Acidophilus (Acidophilus) 1 tablet PO BID [facility] Last Admin: 05/02/20 07:38 Dose: 1 tablet Documented by: Magnesium Hydroxide (Milk Of Magnesia) 30 ml PO .PRN X 1 PRN PRN Reason: Constipation Metoprolol Tartrate (Lopressor (Beta Matt)) 12.5 mg PO TID [facility] Last Admin: 05/02/20 05:22 Dose: 12.5 mg Documented by: Pantoprazole Sodium (Protonix) 40 mg PO DAILY [facility] Last Admin: 05/02/20 07:38 Dose: 40 mg Documented by: [facility] ([facility]Dur) [facility] Admin: 05/02/20 07:38 Dose: 20 meq Documented by: Senna/Docusate Sodium (Senokot-S, Kita-Colace) 2 tablet PO BID [facility] Last Admin: 05/02/20 07:11 Dose: Not Given Documented by: Sodium Chloride () 10 - 40 ml IV UD PRN PRN Reason: SALINE FLUSH Last Admin: 05/02/20 09:24 Dose: 10 ml Documented by: Sodium Chloride () 10 - 40 ml IV UD PRN PRN Reason: SALINE FLUSH Tramadol HCl (Ultram) 50 mg PO Q6H PRN PRN PRN Reason: Pain Score 1-04/29 Last Admin: 04/27/20 13:33 Dose: 50 mg Documented by: Warfarin Sodium (Jantoven) 5 mg PO DAILY@1700 [facility] Last Admin: 05/01/20 16:41 Dose: 5 mg Documented by: Medical Necessity - Tobacco Use Smoking Status: Never smoker Tobacco Use: Non-smoker Route of nutrition/ use of supplements: [] Nutritional Intake: [] IV Site: [] Schreiber Catheter: [] - Assessment/Plan Antibiotics: [] Assessment/Plan: [] Active and Suspected Problems (Last Reviewed 04/28/20 @ 09:[address] Kat Nuñez, ) Foraminal stenosis of cervical region (Acute) Severe at C4-C5 Thyroid nodule (Acute) 2.2 cm discovered incidentally on CT scan of the cervical spine for C2 fracture. Will need follow-up Endocarditis (Acute) She has a floppy mass on the mitral valve and it is unknown if this is a clot or vegetation. Subdural hematoma (Acute) Pelvic hematoma (Acute) Contusion of cervical cord (Suspected) Abnormal signal on MRI on the right aspect of the cervical cord at C4-5 and C5-6-most likely contusion secondary to recent fall and fracture of C2 with spondylolisthesis of C2. Subtherapeutic international normalized ratio (INR) (Acute) Closed left clavicular fracture (Acute) Fracture of left superior pubic ramus (Acute) Left acetabular fracture (Acute) Syncope and collapse (Acute) suspected endocarditis - Cont vanc/ceftriaxone as planned with stop date 06/02/20. Could consider po abx for the last 2 weeks of treatment but it would not be standard of care and is more difficult because it would all be empiric therapy. Preference would be for her to get 6 weeks with iv abx. Will follow, d/w Dr. Nuñez
--- NOTE | 2020-05-02 10:48 | CASEMGMT ---
Social Work Met with patient for follow up visit. Answered questions for pt. Reiterated the importance of remaining in RU throughout the course of IV ATBs due to close monitoring and labs involved in the administration. Encouraged pt as soon as she is able to return home, the will order a DC. However, if pt would choose to leave at this time, would DC AMA. Pt understood. Pt expressed she was able to get more answers from Team meeting the prior day. Pt is improving physically. SW inquired about mood. Pt reported the weekend was 'tough' but this week has been better thus far. Offered for any activities in room - pt has word search puzzle and books, denied any additional material. Pt praised staff for good care thus far. Pt appreciative of visit. No other issues noted. SANDOR met with Marcello Downingison and discussed [employer], LOS and cost. Liaison to speak with [employer] to provide pricing, and educate to agreeing to pay the 6 wks IV ATB as the cost in the community with [facility], lab work and IV meds will be far greater. Liaison to request [employer] pay week to week and give update after Team meetings. Will continue to follow. Moarima Jarquin, JEAN-PAUL CRIMINAL INVESTIGATOR
[2020-05-02] MEDS: Vancomycin IV 500 MG/100 ML BAG 100 MG IV (11:28)
[2020-05-03] VITALS (8 sets, daily range): BP systolic 95–123; BP diastolic 69–70; PULSE 65–84; RESP 16; TEMP 36.5–37.1; O2SAT 93–97
[2020-05-03] MEDS: Vancomycin IV 500 MG/100 ML BAG 100 MG IV ×3 (00:05→23:00)
[2020-05-03] MEDS: Metoprolol Tartrate 25 MG Tablet 12.5 MG PO ×3 (06:04→21:10)
[2020-05-03] MEDS: Aspirin 81 MG TAB.CHEW PO (07:59)
[2020-05-03] MEDS: Hydroxyurea 500 MG Capsule PO (07:59)
[2020-05-03] MEDS: Pantoprazole Sodium 40 MG Tablet PO (08:00)
[2020-05-03] MEDS: Furosemide 20 MG Tablet PO (08:00)
[2020-05-03] MEDS: Digoxin 125 MCG Tablet PO (08:00)
[2020-05-03] MEDS: 0.9% Saline Lock 10 ML Syringe IV ×3 (09:44→21:15)
--- NOTE | 2020-05-03 14:51 | PN_ITS ---
Progress Note Afebrile VSS Maintaining appropriate oxygen saturation on RA Oral intake is good Discussed with nursing - no problems that need addressed Reviewed the PT/OT/ST notes Medication list reviewed. CD has no complaints today. Alert, oriented x3, appropriate, no apparent distress sitting in the recliner at the bedside. Lungs-diminished throughout but especially in the bases. She has persistent coarse crackles in both bases that have not changed since admission. Heart-irregular irregular rhythm with good rate control, no gallop Abdomen-soft, nontender, nondistended, normal bowel sounds heard. No peripheral edema No calf tenderness Impressions 1. Debility secondary to a recent fall resulting in subdural hematoma, left acetabular fracture, left superior and inferior pubic rami fractures 2. Endocarditis 3. Longstanding persistent atrial fibrillation 4. Chronic anticoagulation with warfarin Discussed antibiotics with Dr. Crenshaw yesterday. The standard of care is to provide [address]. Crenshaw recommends she complete the full 6 weeks. If the patient and her family insist may consider the last 2 weeks of therapy with oral agents however this is not standard of care and they must realize this and sign a release saying so. I made Lakeisha aware of this today. I explained that home health could probably do 1 round of antibiotics a day and the lab but the family will need to be taught how to administer IV antibiotics when home health is unable to do this. I also related to Lakeisha that we would like her daughter to come in for training with the therapists in how best to help Lakeisha when she is discharged home. BMP, CBC with differential, dig level, ESR and PT/INR in the a.m. Vancomycin trough tomorrow. STROKE Vital Signs/Narrative: Vital Signs Pulse 05/03/20 13:11 76 Inpatient E&M: 35032 Subs Hosp L2
--- NOTE | 2020-05-03 15:13 | CASEMGMT ---
Social Work Spoke with pt's son whom is continuing to request pt to DC home soon. Son explained there is a family wedding in [place] 05/13 that they would like the pt to be home for. SW reiterated the importance of getting the IV ATBs in its entirety of 6 weeks, the son or family member would need to be trained to administer to return home. Physician is recommending pt remain in RU vs returning home. Son expressed understanding. SW explained there is a cost of IVs, supplies and labs in the community as well. SW offered to get that pricing for son. Son agreed. Will continue to follow. Moraima Jarquin, PARKING ENFORCEMENT MANAGER SCUTCHER TENDER
--- NOTE | 2020-05-03 17:19 | NURSING ---
pt son was on phone with pt when this RN entered room, he reported he had a few questions and was asking about the possibility of pt being discharged home this coming weekend. This RN explained that therapy, Dr Nuñez, Dr Crenshaw, and the director of casework department would have to discuss that possibility. Son stated that there was a family wedding in [place] May 13 and they would really like if pt would be able to attend the wedding. pt and son understand that the message will be passed along, but that no guarantees could be made in regard to discharge plan at this moment.
[2020-05-03] MEDS: Acetaminophen 325 MG Tablet 650 MG PO (21:10)
[2020-05-04] VITALS (7 sets, daily range): BP systolic 96–114; BP diastolic 59–67; PULSE 63–90; RESP 16; TEMP 36.6–36.7; O2SAT 93–94
[2020-05-04] MEDS: Metoprolol Tartrate 25 MG Tablet 12.5 MG PO ×3 (05:26→21:54)
[2020-05-04 05:36] LABS: Hematocrit 35.9 % (37-47); Hemoglobin 9.5 g/dL (12.0-15.0); Mean Corp Hgb Conc 26.5 g/dL (32-36); Mean Corpuscular Hgb 21.8 pg (27.0-32.0); Mean Corpuscular Volume 82.3 fL (81-99); Mean Platelet Vol. 10.3 fl (6.2-12.0); POSITIVE MORPHOLOGY YES; Platelet Count 709 K/mm3 (150-450); RBC Distribution Width CV 21.2 % (11.6-14.6); RBC Distribution Width SD 59.7 fl (35.1-43.9); Red Blood Count 4.36 M/mm3 (4.2-5.4)
[2020-05-04 05:45] LABS: International Normalized Ratio 3.1; Prothrombin Time (Protime)PT. 31.4 SECONDS (11.7-14.9)
[2020-05-04 05:50] LABS: Anion Gap 4 (5-15); BUN 25 mg/dL (7-18); Calcium,Total 8.7 mg/dL (8.5-10.1); Chloride 103 mmol/L (98-107); Creatinine, Serum 0.78 mg/dL (0.55-1.02); EST Glomerular Filtration Rate 78 mL/min (>60); Est Glom Filt Rate - Afr Amer 94 mL/min (>60); Estimated Creatinine Clearance 41.99 ml/min; Glucose 80 mg/dL (74-106); Potassium 4.3 mmol/L (3.5-5.1); Sodium Level 138 mmol/L (136-145)
[2020-05-04 05:51] LABS: Scan Indicated on CBC? Y/N YES- FLAGS NOTED
[2020-05-04 06:21] LABS: Differential Comment SCANNED
[2020-05-04 06:22] LABS: Erythrocyte Sedimentation Rate 66 mm/hr (0-30)
[2020-05-04 06:41] LABS: Digoxin Level 0.61 ng/mL (0.80-2.00)
[2020-05-04] MEDS: Aspirin 81 MG TAB.CHEW PO (07:42)
[2020-05-04] MEDS: Furosemide 20 MG Tablet PO (07:42)
[2020-05-04] MEDS: Hydroxyurea 500 MG Capsule PO (07:42)
[2020-05-04] MEDS: Digoxin 125 MCG Tablet PO (07:42)
[2020-05-04] MEDS: Pantoprazole Sodium 40 MG Tablet PO (07:42)
--- NOTE | 2020-05-04 08:42 | PCM.PN.BLA ---
Progress Note Afebrile VSS Maintaining appropriate oxygen saturation on RA Oral intake is improved Discussed with nursing - no problems that need addressed Reviewed the PT/OT/ST notes Medication list reviewed. All lab was personally reviewed. White blood cell count today is 20,000. Hemoglobin is stable at 9.5 and platelets are 709,000. ESR is 66. INR is 3.1. The BUN was elevated today at 25 with a creatinine of 0.78 which is stable. BUN/creatinine ratio is 32? Hemoccult stool was negative at admission however she is maintaining good oral intake and the BUN doubled? May need to check another heme stool. Lakeisha has no complaints today. Her pain is well controlled. Lungs - CTA H - irreg with controlled VR no peripheral edema Mucous membranes are moist Impressions 1. Debility secondary to a recent fall resulting in subdural hematoma, left anterior acetabular fracture, left superior and inferior pubic rami fractures and pelvic hematoma. 2. Endocarditis-on vancomycin and Rocephin for a 6 weeks course 3. Longstanding persistent atrial fibrillation 4. Chronic anticoagulation with warfarin 5. Microcytic anemia with history of polycythemia vera. She is iron deficient but will not treat this due to the polycythemia vera. 6. BUN elevated out of proportion to creatinine. etiology? 7. Suspected fibrosis/scarring in the bases of both lungs with persistent coarse crackles unchanged since admission Change the Warfarin to 5 mg ,,, SAT and SUN and 2.5 mg on Friday and Friday check orthostatic BP Repeat Hemoccult stool for BUN out of proportion to the creat in a pt with good oral intake. SANDOR spoke with Lakeisha's son Franklyn and he would like to take Lakeisha home so that she can attend a wedding on 05/13. He was informed that [facility] will not be able to do any of the IV administrations but, they will be able to do the blood draws. Franklyn or another family member will need to come in a few times to learn proper technique for administering the IV antibiotics at home. I have some concerns about sterile technique at home. I may have them sign a paper at [facility] that says this is not our preferred method of antibiotic administration but, will comply with the family wishes. I discussed this with Lakeisha and told her if she was my relative I would recommend she stay in the hospital or a SNF for the full 6 weeks of antibiotics. She has in the past had a tricuspid valve repair and a mitral valve repair and bacterial endocarditis could destroy the valve if not properly treated or even result in . She will consider and let me know what she decides. STROKE Vital Signs/Narrative: Vital Signs Temp Pulse Resp BP Pulse Ox 05/04/20 08:37 98.0 F 79 16 114/67 93 05/04/20 07:42 86 05/04/20 05:26 76 Inpatient E&M: 71312 Subs Hosp L2
--- NOTE | 2020-05-04 10:27 | CASEMGMT ---
Social Work Spoke with physician about son's requests to DC home by wedding. Physician continued to be concerned with having a sterile environment at home and recommending to have pt remain. Spoke with pt's son about recommendations, provided cost. SW contacted I and the cost of both IV meds and supplies are $57/day. Sw contacted [facility] and they can complete the labs very 3 days but cannot administer IVS. SW also offered to son for pt o transfer to lower level of care which would be less expensive. Son expressed understanding but that he and pt still want to DC home prior to wedding. SW agreed but that son would need to schedule family training with nurse on IVS multiple times prior to DC. Son understood. IDT set DC for 05/11. SW referred to [facility] and [facility] PT/OT/SN. No DME needs. Transferred to nurse. Nursing schedule training with son and for 05/05, 05/06 and 05/08 at 9:30 am and noon for both IV administration. Plan: DC home with family support 05/11 with [facility] PT/OT/SN, [facility] for IV Meds and supplies JEAN-PAUL Frazier
[2020-05-04] MEDS: Vancomycin IV 500 MG/100 ML BAG 100 MG IV ×2 (11:33→23:58)
[2020-05-04] MEDS: 0.9% Saline Lock 10 ML Syringe IV (21:56)
[2020-05-05] VITALS (8 sets, daily range): BP systolic 114–124; BP diastolic 73–77; PULSE 79–95; RESP 18; TEMP 36.7; O2SAT 93
[2020-05-05 01:16] LABS: Vancomycin, Trough Level 13.8 ug/mL (5.0-15.0)
[2020-05-05] MEDS: 0.9% Saline Lock 10 ML Syringe IV ×3 (01:30→11:55)
--- NOTE | 2020-05-05 02:00 | PCM.RX.CS ---
Consult Pharmacy has been consulted to manage selected antiobiotic: Vancomycin Type of Consult: Follow-up Suspected Infection: Endocarditis Prior Doses of Antibiotics Received/Current Regimen: Medications Vancomycin HCl 750 mg/ Sodium (Chloride) 265 mls @ 250 mls/hr IV Q12H [facility] Discontinued Medications Vancomycin HCl () 500 mg in 100 mls @ 100 mls/hr IV Q12H [facility] Last Admin: 05/05/20 01:27 Dose: Infused Labs: Sodium 138 mmol/L (136-145) 05/04/20 05:30 Potassium 4.3 mmol/L (3.5-5.1) 05/04/20 05:30 Chloride 103 mmol/L (98-107) 05/04/20 05:30 Carbon Dioxide 31.0 mmol/L (21.0-32.0) 05/04/20 05:30 Anion Gap 4 (5-15) L 05/04/20 05:30 BUN 25 mg/dL (7-18) H 05/04/20 05:30 Creatinine 0.78 mg/dL (0.55-1.02) 05/04/20 05:30 Est GFR (MDRD) Af Amer 94 mL/min (>60) 05/04/20 05:30 Est GFR (MDRD) Non-Af 78 mL/min (>60) 05/04/20 05:30 BUN/Creatinine Ratio 32.0 RATIO (10-20) H 05/04/20 05:30 Glucose 80 mg/dL (74-106) 05/04/20 05:30 Vancomycin Trough 13.8 ug/mL (5.0-15.0) 05/04/20 23:29 Random Vancomycin 13.8 ug/mL (0.0-15.0) 04/29/20 08:45 Microbiology: Microbiology 05/04/20 Unknown Stool Stool Occult Blood (COLIN) - Final 04/27/20 08:45 Stool Stool Occult Blood (COLIN) - Final Weight used for dosin kg Estimated Creatinine Clearance: 42 Goal Trough: 15-20 mcg/mL Pharmacy Plan for Drug Dosing: Trough vancomycin level of 13.8 was below target range of 15-20. Will increase dose to 750mg q12h, and re-draw trough prior to 4th dose of new regimen. Pharmacy Service will continue to monitor and adjust dosing as required. Follow-Up Labs: Trough Vancomycin Labs to be done on [date and time ordered]: 05/06/20 @5774
[2020-05-05] MEDS: Metoprolol Tartrate 25 MG Tablet 12.5 MG PO ×3 (06:58→21:44)
[2020-05-05] MEDS: Digoxin 125 MCG Tablet PO ×2 (07:47→07:48)
[2020-05-05] MEDS: Aspirin 81 MG TAB.CHEW PO (07:47)
[2020-05-05] MEDS: Pantoprazole Sodium 40 MG Tablet PO (07:47)
[2020-05-05] MEDS: Furosemide 20 MG Tablet PO (07:47)
[2020-05-05] MEDS: Hydroxyurea 500 MG Capsule PO (07:49)
--- NOTE | 2020-05-05 08:46 | CASEMGMT ---
Social Work Son contacted SANDOR this AM reporting he has been exposed to COVID, and he is supposed to come in for training for IVs shortly. SW advised son to not come into the hospital and the IV training will be cancelled until further notice. Inquired if son had a doctor - he said yes- SW advised son to contact for further direction. Explained son and will need to quarantine for 14 days and MD does not want pt discharging home, due to risk of infection, not having a sterile environment and son and will no longer be able to come in to get IV trained for at least 14 days. SANDOR inquired when son has been exposed, he stated yesterday afternoon. SANDOR inquired if he was at work currently - he said yes - asked about wearing a mask - he said no. Advised pt to hang up with SANDOR and contact for further direction and notify SANDOR with outcome. Notified RU Director and MD. Left message with [facility] Liaison. Notified Main Entrance pt is to not have any visitors for 14 days while in [facility], per MD and Director direction. The son has not been a visitor of the pt's, just the dtr and she had not visited the prior evening. Spoke with pt to discuss above information. Explained pt cannot have any visitors for at least 14 days if she remains at [facility]. Pt understood. Explained SW can assist with facilitating transfer to a SNF for lower cost - as this was a concern of the family. Encouraged pt to speak with family about her options and contact SANDOR with outcome. Will continue to follow. JEAN-PAUL Frazier KENNEL ATTENDANT
[2020-05-05] MEDS: Acetaminophen 325 MG Tablet 650 MG PO (21:46)
[2020-05-06] MEDS: Metoprolol Tartrate 25 MG Tablet 12.5 MG PO ×3 (05:57→23:04)
[2020-05-06] MEDS: Aspirin 81 MG TAB.CHEW PO (08:44)
[2020-05-06] MEDS: Hydroxyurea 500 MG Capsule PO (08:45)
[2020-05-06] MEDS: Furosemide 20 MG Tablet PO (08:46)
[2020-05-06] MEDS: Pantoprazole Sodium 40 MG Tablet PO (08:47)
[2020-05-06] MEDS: 0.9% Saline Lock 10 ML Syringe IV (13:14)
[2020-05-06 19:27] VITALS: BP 102/58; PULSE 65; RESP 18; TEMP 36.6; O2SAT 94
[2020-05-06 21:29] VITALS: PULSE 83; RESP 16; O2SAT 93
[2020-05-06 23:04] VITALS: PULSE 86
[2020-05-07] VITALS (7 sets, daily range): BP systolic 107–108; BP diastolic 66–70; PULSE 70–93; RESP 16; TEMP 36.8–37.2; O2SAT 92–94
[2020-05-07 00:38] LABS: Vancomycin, Trough Level 27.1 ug/mL (5.0-15.0)
--- NOTE | 2020-05-07 00:50 | PCM.RX.CS ---
Consult Pharmacy has been consulted to manage selected antiobiotic: Vancomycin Type of Consult: Follow-up Suspected Infection: Endocarditis Prior Doses of Antibiotics Received/Current Regimen: Medications Vancomycin HCl 750 mg/ Sodium (Chloride) 265 mls @ 250 mls/hr IV Q12H [facility] Last Admin: 05/06/20 23:36 Dose: 250 mls/hr Labs: Sodium 138 mmol/L (136-145) 05/04/20 05:30 Potassium 4.3 mmol/L (3.5-5.1) 05/04/20 05:30 Chloride 103 mmol/L (98-107) 05/04/20 05:30 Carbon Dioxide 31.0 mmol/L (21.0-32.0) 05/04/20 05:30 Anion Gap 4 (5-15) L 05/04/20 05:30 BUN 25 mg/dL (7-18) H 05/04/20 05:30 Creatinine 0.78 mg/dL (0.55-1.02) 05/04/20 05:30 Est GFR (MDRD) Af Amer 94 mL/min (>60) 05/04/20 05:30 Est GFR (MDRD) Non-Af 78 mL/min (>60) 05/04/20 05:30 BUN/Creatinine Ratio 32.0 RATIO (-20) H 05/04/20 05:30 Glucose 80 mg/dL (74-106) 05/04/20 05:30 Vancomycin Trough 27.1 ug/mL (5.0-15.0) H 05/06/20 23:57 Random Vancomycin 13.8 ug/mL (0.0-15.0) 04/29/20 08:45 Microbiology: Microbiology 05/04/20 Unknown Stool Stool Occult Blood (COLIN) - Final 04/27/20 08:45 Stool Stool Occult Blood (COLIN) - Final Weight used for dosin kg Estimated Creatinine Clearance: 42 Pharmacy Plan for Drug Dosing: Trough level drawn 05/06 came up high at 27.1, but there was some overlap with the vanco dose being hung. Will continue current dosing, but re-draw trough 05/07 @2330. Pharmacy Service will continue to monitor and adjust dosing as required. Follow-Up Labs: Trough Vancomycin Labs to be done on [date and time ordered]: 05/07/20 @2330
[2020-05-07] MEDS: Metoprolol Tartrate 25 MG Tablet 12.5 MG PO ×3 (06:52→21:53)
[2020-05-07] MEDS: Furosemide 20 MG Tablet PO (08:59)
[2020-05-07] MEDS: Digoxin 125 MCG Tablet PO (09:00)
[2020-05-07] MEDS: Pantoprazole Sodium 40 MG Tablet PO (09:00)
[2020-05-07] MEDS: Aspirin 81 MG TAB.CHEW PO (09:00)
[2020-05-07] MEDS: Hydroxyurea 500 MG Capsule PO (09:00)
[2020-05-07] MEDS: 0.9% Saline Lock 10 ML Syringe IV ×2 (15:04→22:06)
[2020-05-07] MEDS: Acetaminophen 325 MG Tablet 650 MG PO (22:01)
[2020-05-08 05:25] VITALS: PULSE 90
[2020-05-08] MEDS: Metoprolol Tartrate 25 MG Tablet 12.5 MG PO ×3 (05:25→21:11)
[2020-05-08 05:49] LABS: International Normalized Ratio 2.3; Prothrombin Time (Protime)PT. 25.1 SECONDS (11.7-14.9)
[2020-05-08] MEDS: Aspirin 81 MG TAB.CHEW PO (07:46)
[2020-05-08 07:47] VITALS: PULSE 92
[2020-05-08] MEDS: Hydroxyurea 500 MG Capsule PO (07:47)
[2020-05-08] MEDS: Digoxin 125 MCG Tablet PO (07:47)
[2020-05-08] MEDS: Furosemide 20 MG Tablet PO (07:48)
[2020-05-08] MEDS: Pantoprazole Sodium 40 MG Tablet PO (07:48)
[2020-05-08 08:26] VITALS: BP 112/72; PULSE 90; RESP 16; TEMP 36.8; O2SAT 92
--- NOTE | 2020-05-08 08:56 | PCM.PN.BLA ---
Progress Note Lakeisha was seen on team rounds today and her son Franklyn participated by phone. Afebrile VSS Maintaining appropriate oxygen saturation on RA Oral intake is good urine out puts are not accurate. Will need to go by weights. Discussed with nursing - no problems that need addressed Reviewed the PT/OT/ST notes. She walked with a quad cane over the weekend and today she is able to ambulate with a straight cane. Pace and fluidity of walking has picked up. Medication list reviewed. All lab was personally reviewed. INR is therapeutic at 2.3 today. Vancomycin trough on 05/07/2020 was 17. Lakeisha denies cough, shortness of breath, orthopnea, swelling of her ankles, chest pain pelvic pain. She was lying nearly flat in bed last night with no shortness of breath. Alert, sitting in the recliner near the windows. No apparent distress, not tachypneic, pleasant and appropriate. Mucous membranes are moist No rashes and no skin breakdown Lungs-coarse crackles in the bases-unchanged since admission Heart-irregular irregular with controlled ventricular response, no gallop Abdomen-soft, nontender, nondistended, no guarding with palpation, bowel sounds present No ankle edema, no cyanosis Impressions 1. Debility secondary to recent fall resulting in subdural hematoma, left clavicle fracture, left superior and inferior pubic rami fractures and a fracture of the left acetabulum. 2. Endocarditis-on vancomycin and Rocephin for a 6 weeks course. 3. Longstanding persistent atrial fibrillation-rate controlled with digoxin and metoprolol 4. Chronic anticoagulation with warfarin-INR is therapeutic today 5. Polycythemia vera 6. persistent coarse crackles in both lung bases - pulmonary fibrosis? scarring? 7. 2.2 cm thyroid nodule-will need to be followed as an outpatient. In July 2019 the TSH was low at 0.07 but the T4 was within normal limits. She has not had a repeat TSH and T4 since July 2019 at this institution. TSH in the AM and if it is abnormal may need to get a T4 and a T3 Check a BMP and a CBC in in the AM suspected osteoporosis - check a vitamin D level and PTH. Suggest she have a DEXA as an OP She has been accepted at [facility] and plan on ID Wed to complete 6 weeks of IV antibiotics for endocarditis. Suggest she follow up with Dr. Martinez at DC to work up and follow the thyroid nodule She will follow-up with [facility] post discharge and will likely need another echocardiogram to further evaluate the mitral valve and whether the clot/vegetation? Has resolved. STROKE Vital Signs/Narrative: Vital Signs Temp Pulse Resp BP Pulse Ox 05/08/20 08:26 98.3 F 90 16 112/72 92 05/08/20 07:47 92 05/08/20 05:25 90 Inpatient E&M: 30097 Subs Hosp L2
--- NOTE | 2020-05-08 10:11 | CASEMGMT ---
Addendum entered by Moraima Jarquin 05/08/20 16:14: [facility] pt. Spoke with pt and son - both agreed to [facility]. IDT agreeable to DC 05/10. Notified both facilities. Cancelled referrals to [facility] and [facility]. Scheduled w/c transport as family cannot transport pt due to COVID precautions. Physicians can transport pt at 1 pm. PASRR completed. Plan: DC to [facility] Original Note: Social Work IDT met with patient and son via conference call for Team meeting. Discussed patient's progress in therapy. Pt is supervised for tx, ambulating over 300ft with quad cane CGA-SBA on multiple surfaces. Pt is Josh for bathing for left foot only, supervised for rest of the bathing, SBA for grooming, supervised for toileting tasks, set up for UE dressing, Josh for socks. St working with pt on fiance and med management, and memory which is improving well. Son expressed he began having COVID symptoms over the weekend and has stopped going to work at this time. Pt and son requesting referrals to [facility] and [facility]. Once having an accepting facility, pt can transfer. Referrals made. Will continue to follow. Moraima Jarquin, JEAN-PAUL PATIENT SERVICE REPRESENTATIVE
[2020-05-08 21:05] VITALS: BP 106/69; PULSE 97; RESP 16; TEMP 36.8; O2SAT 93
[2020-05-08 21:11] VITALS: PULSE 88
[2020-05-08 22:00] VITALS: PULSE 88; RESP 17; O2SAT 95
[2020-05-08] MEDS: 0.9% Saline Lock 10 ML Syringe IV (22:59)
[2020-05-09] VITALS (7 sets, daily range): BP systolic 104–124; BP diastolic 61–68; PULSE 78–98; RESP 16; TEMP 36.6–36.7; O2SAT 94–95
[2020-05-09] MEDS: Metoprolol Tartrate 25 MG Tablet 12.5 MG PO ×3 (06:16→21:36)
[2020-05-09 08:10] LABS: Hematocrit 36.8 % (37-47); Hemoglobin 9.6 g/dL (12.0-15.0); Mean Corp Hgb Conc 26.1 g/dL (32-36); Mean Corpuscular Hgb 21.6 pg (27.0-32.0); Mean Corpuscular Volume 82.7 fL (81-99); Mean Platelet Vol. 11.6 fl (6.2-12.0); POSITIVE COUNT YES; POSITIVE MORPHOLOGY YES; RBC Distribution Width CV 21.2 % (11.6-14.6); RBC Distribution Width SD 60.3 fl (35.1-43.9); Red Blood Count 4.45 M/mm3 (4.2-5.4); White Blood Count 21.3 K/mm3 (4.4-11.0)
[2020-05-09 08:12] LABS: Scan Indicated on CBC? Y/N YES- FLAGS NOTED
[2020-05-09 08:14] LABS: Platelet Count 767 K/mm3 (150-450)
[2020-05-09 08:54] LABS: Anion Gap 7 (5-15); BUN 22 mg/dL (7-18); BUN/Creat Ratio 28.7 RATIO (10-20); Calcium,Total 8.9 mg/dL (8.5-10.1); Chloride 102 mmol/L (98-107); Creatinine, Serum 0.77 mg/dL (0.55-1.02); EST Glomerular Filtration Rate 79 mL/min (>60); Est Glom Filt Rate - Afr Amer 96 mL/min (>60); Estimated Creatinine Clearance 41.99 ml/min; Glucose 117 mg/dL (74-106); Potassium 3.9 mmol/L (3.5-5.1); Sodium Level 137 mmol/L (136-145); Thyroid Stim Hormone (TSH) 1.13 uIU/mL (0.358-3.74)
[2020-05-09 08:58] LABS: Digoxin Level 0.43 ng/mL (0.80-2.00)
[2020-05-09] MEDS: Hydroxyurea 500 MG Capsule PO (09:44)
[2020-05-09] MEDS: Aspirin 81 MG TAB.CHEW PO (09:44)
[2020-05-09] MEDS: Furosemide 20 MG Tablet PO (09:44)
[2020-05-09] MEDS: Pantoprazole Sodium 40 MG Tablet PO (09:44)
[2020-05-09] MEDS: Digoxin 125 MCG Tablet PO ×2 (09:44→16:17)
[2020-05-09 09:55] LABS: PTHIN 56.8 pg/mL (18.4-80.1)
[2020-05-09 10:07] LABS: Vitamin D,25 Hydroxy 17.9 ng/mL
--- NOTE | 2020-05-09 15:49 | PCM.PN.BLA ---
Progress Note Afebrile Vital signs stable Maintaining appropriate oxygen saturation on room air Good oral intake All lab was personally reviewed. Hemoglobin is stable at 9.6.Creatinine is stable at 0.77 with a BUN of 22.Hemoccult stool has been negative x2.The vitamin D level is deficient at 17.9. PTH is within normal limits and the TSH is also within normal limits. Calcium is within normal limits. Dig level is a little low at 0.43 Lakeisha has no complaints today. PT/OT/ST notes were reviewed. Alert, oriented x3, no apparent distress Lungs-persistent coarse crackles in the base with no wheezing Heart-irregular irregular with controlled ventricular response, no gallop Abdomen-soft, nontender, nondistended, no guarding with palpation, normal bowel sounds No peripheral edema Mucous membranes are moist Impressions 1. Low dig level - resting HR is in the 90's. Will give and extra dose of Dig 0.125mg today 2. chronic AF - on warfarin 3. polycythemia vera - stable 4. Vitamin D deficiency - start a vitamin D supplement and recommend she get a DEXA as an OP. Start a bisphosphonate as I suspect she has osteoporosis. DC on 05/11 to [facility] Vital Signs/Narrative: Vital Signs Pulse 05/09/20 14:51 98 Inpatient E&M: [id number] Subs Hosp L2
[2020-05-09 22:15] LABS: Probe Check PASS; Specimen Processing Control PASS
[2020-05-10 05:55] LABS: International Normalized Ratio 2.4
[2020-05-10 06:01] VITALS: PULSE 106
[2020-05-10] MEDS: Metoprolol Tartrate 25 MG Tablet 12.5 MG PO (06:01)
[2020-05-10] MEDS: Pantoprazole Sodium 40 MG Tablet PO (08:19)
[2020-05-10] MEDS: Aspirin 81 MG TAB.CHEW PO (08:19)
[2020-05-10] MEDS: Furosemide 20 MG Tablet PO (08:19)
[2020-05-10] MEDS: Hydroxyurea 500 MG Capsule PO (08:27)
[2020-05-10 09:23] VITALS: BP 128/81; PULSE 106; RESP 16; TEMP 36.9; O2SAT 94
[2020-05-10 09:58] VITALS: PULSE 106
[2020-05-10] MEDS: Digoxin 125 MCG Tablet PO ×2 (09:58→12:04)
[2020-05-10] MEDS: 0.9% Saline Lock 10 ML Syringe IV (09:59)
[2020-05-10 10:00] VITALS: PULSE 106; RESP 16; O2SAT 94
--- NOTE | 2020-05-10 11:58 | TREXTCAR_ITS ---
- Diet 04/26/20 20:57 Diet: Cardiac - Heart Healthy - Routine Orders/Code Status Enema Type: Fleetz Enema Frequency: Daily PRN O2 Liters per Minute: 1-2 LPM O2 Frequency: PRN Keep PO Greater than or Equal to (%): 90 Routine Lab Work: - - BMP, CBC, ESR, Vancomycin trough, PT/INR and dig level weekly on while on the vancomycin and the Rocephin. Code Status: Full Code - Wound(s) RAC Wound Type: IV wound Dressing Change: - PICC line - Therapies Weight Bearing: Full weight bearing Physical Therapy: Eval and Treat Occupational Therapy: Eval and Treat - Problem/Diagnosis (1) Microcytic anemia Status: Chronic Comment: She is iron deficient but, this is not to be treated due to polycythemia Vera. (2) Leukocytosis Status: Chronic Comment: Related to polycythemia vera diagnosis. (3) Thrombocytosis Status: Chronic Comment: Due to polycythemia vera (4) Foraminal stenosis of cervical region Status: Chronic Comment: Severe at C4-C5 (5) Thyroid nodule Status: Acute Comment: 2.2 cm discovered incidentally on CT scan of the cervical spine for C2 fracture. Will need follow-up (6) Endocarditis Status: Acute Comment: She has a floppy mass on the mitral valve and it is unknown if this is a clot or vegetation. (7) Subdural hematoma Status: Acute Comment: Stable (8) Pelvic hematoma Status: Acute Comment: Hemoglobin has been stable while in rehab. 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 Darion GILLESPIE (12) H/O maze procedure Status: Chronic Comment: Biatrial Cryomaze Dr. Darion GILLESPIE (13) S/P tricuspid valve repair Status: Chronic Comment: [place] MC3 Tricuspid ring size 30 Dr. Darion GILLESPIE (14) S/P mitral valve repair Status: Chronic Comment: Stephanie Mitral Ring #[phone] Per [facility] (15) History of transesophageal echocardiography (CASSANDRA) Status: Chronic Comment: Posterior leaflet mitral valve prolapse. Severe (4+) mitral valve insufficiency. Moderately severe (3+) tricuspid valve insufficienc y. Right ventricular systolic pressure estimated to be 53 mmHg. Moderate pulmonary hypertension. Pt appears to be in atrial fibrillation. (16) History of right and left heart catheterization Status: Chronic Comment: Normal coronary arteries; Perserved Left Ventricular systolic function with normal EDP; Normal LV size, wall motion,and systolic function; LVEF: by LV gram 65 %; Mitral Valve Insufficiency: Severe; The patient has pulmonary hypertension which is severe. Right heart pressures - severely elevated. Surgery consult for valvular disease, Increase lasix to 40mg po daily. (17) Longstanding persistent atrial fibrillation Status: Chronic (18) History of GI bleed Status: Chronic Comment: No recent bleeds while on warfarin and Protonix. Hemoccult stool in April 2020 was negative x2. (19) Secondary pulmonary hypertension Status: Chronic Comment: Moderate: RVSP 70 mmhg per echo done @ [facility] in March 2020 (20) Nonrheumatic mitral valve regurgitation Status: Chronic Comment: Moderate (2-3+) per echo 10/14/18 done @ [facility] [place]. Mild thickening, mild calcification, mild prolapse of anterior and posterior mitral leaflets (21) Nonrheumatic tricuspid (valve) insufficiency Status: Chronic Comment: Mild (1+) per echo 10/14/18 done @ [facility] [place]. (22) Polycythemia vera Status: Chronic Comment: Receives phlebotomy treatments per Dr. Neves, [facility] [place]. (23) Essential hypertension Status: Chronic (24) Chronic anticoagulation Status: Chronic (25) Closed left clavicular fracture Status: Acute (26) Fracture of left superior pubic ramus Status: Acute (27) Left acetabular fracture Status: Acute Comment: anterior acetabulum (28) Syncope and collapse Status: Inactive (29) Fracture of left inferior pubic ramus Status: Acute (30) Vitamin D deficiency Status: Chronic (31) Osteoporosis Status: Suspected (32) Pulmonary scarring Status: Suspected Comment: She has persistent coarse crackles in the bases of both lungs that have been unchanged while she has been in rehab. - Allergies/Procedures Done in Hospital Allergies/Adverse Reactions: Allergies egg Adverse Reaction (Intermediate, Verified 04/14/20 13:18) GI upset chocolate Adverse Reaction (Intermediate, Uncoded 04/14/20 13:18) GI upset Procedures: None - Type of Care/Length of Stay Estimated LOS: Convalescent Care Less Than 30 days Type of Care Needed: Skilled Rehab Potential: Good Prognosis: Good - Additional Orders/Day of Discharge Additional Orders: Please fax the results of the CBC, BMP, ESR and vanco trough to Dr. Krish Crenshaw - infectious disease H&P will serve as current which was dated: 04/27/20 Day of Discharge: 05/10/20 - Dietary and Speech Recommendations Dietitian Recommendations/Changes: Continue Cardiac diet. No further nutrition recommendations at this time. Please consult RDN if changes in pt nutrition status and/or diet education warranted. - Follow Up Care Primary Care Physician: Lobo Spann MD [Primary Care Provider] - Please follow up with your Primary Care Physician in: following discharge from SNF Please Follow Up With: Anirudh Martinez MD When: following DC from SNF to follow up the thyroid nodule
[2020-05-10 12:04] VITALS: PULSE 104
--- NOTE | 2020-05-10 12:21 | PCM.DC.SUM ---
Discharge Date and Diagnosis - Problem List Patient Problems: Active and Suspected Problems (Last Reviewed 04/28/20 @ 09:[address] Kat uNñez DO) Fracture of left inferior pubic ramus (Acute) Osteoporosis (Suspected) Pulmonary scarring (Suspected) She has persistent coarse crackles in the bases of both lungs that have been unchanged while she has been in rehab. Thyroid nodule (Acute) 2.2 cm discovered incidentally on CT scan of the cervical spine for C2 fracture. Will need follow-up Endocarditis (Acute) She has a floppy mass on the mitral valve and it is unknown if this is a clot or vegetation. Subdural hematoma (Acute) Stable Pelvic hematoma (Acute) Hemoglobin has been stable while in rehab. 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 Closed left clavicular fracture (Acute) Fracture of left superior pubic ramus (Acute) Left acetabular fracture (Acute) anterior acetabulum Date of Admission: 04/26/20 Date of Discharge: 05/10/20 - Primary Discharge Diagnosis Acute Problems: Active Problems (Last Reviewed 04/28/20 @ 09:[address] Kat Nuñez DO) Debility secondary to recent fall resulting in multiple fractures Fracture of left inferior and superior pubic rami (Acute) Left anterior acetabular fracture (Acute) Closed left clavicular fracture (Acute) Thyroid nodule (Acute) 2.2 cm discovered incidentally on CT scan of the cervical spine for C2 fracture. Will need follow-up Endocarditis (Acute) She has a floppy mass on the mitral valve and it is unknown if this is a clot or vegetation. Subdural hematoma (Acute) Pelvic hematoma (Acute) Hemoglobin has been stable while in rehab. Suspected Problems: Suspected Problems (Last Reviewed 04/28/20 @ 09:[address] Kat Nuñez DO) Osteoporosis (Suspected) Pulmonary scarring (Suspected) She has persistent coarse crackles in the bases of both lungs that have been unchanged while she has been in rehab. 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 - Secondary Discharge Diagnosis Chronic Problems: Chronic Problems (Last Reviewed 04/28/20 @ 09:[address] Kat Nuñez, DO) Vitamin D deficiency (Chronic) Microcytic anemia (Chronic) She is iron deficient but, this is not to be treated due to polycythemia Vera. Leukocytosis (Chronic) Related to polycythemia vera diagnosis. Thrombocytosis (Chronic) Due to polycythemia vera Foraminal stenosis of cervical region (Chronic) Severe at C4-C5 Chronic anticoagulation (Chronic) Presence of left atrial appendage closure device composed of nickel-titanium alloy with polyethylene terephthalate membrane (Chronic 09/27/19) Size [address] [facility] (Chronic 09/27/19) Biatrial Cryomaze Dr. Darion Loaizanya [facility] S/P tricuspid valve repair (Chronic 09/27/19) [place] MC3 Tricuspid ring size 30 Dr. Darion Steinberg [facility] S/P mitral valve repair (Chronic 09/27/19) Stephanie Mitral Ring #35 [facility] Longstanding persistent atrial fibrillation (Chronic) History of GI bleed (Chronic) No recent bleeds while on warfarin and Protonix. Hemoccult stool in April 2020 was negative x2. Secondary pulmonary hypertension (Chronic) Moderate: RVSP 70 mmhg per echo done @ [facility] in March 2020 Nonrheumatic mitral valve regurgitation (Chronic) Moderate (2-3+) per echo 10/14/18 done @ [facility]. Mild thickening, mild calcification, mild prolapse of anterior and posterior mitral leaflets Nonrheumatic tricuspid (valve) insufficiency (Chronic) Mild (1+) per echo 10/14/18 done @ [facility]. Polycythemia vera (Chronic) Receives phlebotomy treatments per Dr. Neves, [facility] HemOnc Adan. Essential hypertension (Chronic) Hospital Course and Treatment Imaging Results: Laboratory Last Values WBC 21.3 K/mm3 (4.4-11.0) H 05/09/20 07:45 RBC 4.45 M/mm3 (4.2-5.4) 05/09/20 07:45 Hgb 9.6 g/dL (12.0-15.0) L 05/09/20 07:45 Hct 36.8 % (37-47) L 05/09/20 07:45 MCV 82.7 fL (81-99) 05/09/20 07:45 MCH 21.6 pg (27.0-32.0) L 05/09/20 07:45 MCHC 26.1 g/dL (32-36) L 05/09/20 07:45 RDW Std Deviation 60.3 fl (35.1-43.9) H 05/09/20 07:45 RDW Coeff of Teodora 21.2 % (11.6-14.6) H 05/09/20 07:45 Plt Count 767 K/mm3 (150-450) H* 05/09/20 07:45 MPV 11.6 fl (6.2-12.0) 05/09/20 07:45 Immature Gran % (Auto) 4.300 % (0.0-0.9) H 04/27/20 05:25 Neut % (Auto) 82.9 % (47-70) H 04/27/20 05:25 Lymph % (Auto) 4.6 % (19-41) L 04/27/20 05:25 [place] % (Auto) 3.5 % (0-10) 04/27/20 05:25 Eos % (Auto) 3.4 % (0-5) 04/27/20 05:25 Baso % (Auto) 1.3 % (0-1) H 04/27/20 05:25 Absolute Neuts (auto) 22.1 X10^3/uL (2.0-7.7) H 04/27/20 05:25 Absolute Lymphs (auto) 1.22 X10^3/uL (0.83-4.51) 04/27/20 05:25 Nucleated RBC % 0 % (0-5) 04/27/20 05:25 Differential Comment COMMENT 05/09/20 07:45 Diff Path Review November05/09/20 07:45 ESR 66 mm/hr (0-30) H 05/04/20 05:30 PT 26.0 SECONDS (11.7-14.9) H 05/10/20 05:25 INR 2.4 05/10/20 05:25 Sodium 137 mmol/L (136-145) 05/09/20 07:45 Potassium 3.9 mmol/L (3.5-5.1) 05/09/20 07:45 Chloride 102 mmol/L (98-107) 05/09/20 07:45 Carbon Dioxide 28.0 mmol/L (21.0-32.0) 05/09/20 07:45 Anion Gap 7 (5-15) 05/09/20 07:45 BUN 22 mg/dL (7-18) H 05/09/20 07:45 Creatinine 0.77 mg/dL (0.55-1.02) 05/09/20 07:45 Estim Creat Clear Calc 41.99 ml/min 05/09/20 07:45 Est GFR (MDRD) Af Amer 96 mL/min (>60) 05/09/20 07:45 Est GFR (MDRD) Non-Af 79 mL/min (>60) 05/09/20 07:45 BUN/Creatinine Ratio 28.7 RATIO (-20) H 05/09/20 07:45 Glucose 117 mg/dL (74-106) H 05/09/20 07:45 Calcium 8.9 mg/dL (8.5-10.1) 05/09/20 07:45 Phosphorus 3.5 mg/dL (2.5-4.9) 04/27/20 05:25 Magnesium 1.9 mg/dL (1.6-2.6) 04/27/20 05:25 Iron 15 ug/dL (50-170) L 05/01/20 05:30 TIBC 356 ug/dL (250-450) 05/01/20 05:30 Iron Saturation 4.2 % (15.0-55.0) L 05/01/20 05:30 Ferritin 30 ng/mL (8-252) 05/01/20 05:30 Total Bilirubin 0.30 mg/dL (0.20-1.00) 04/27/20 05:25 AST 23 U/L (15-37) 04/27/20 05:25 ALT 17 U/L (13-56) 04/27/20 05:25 Alkaline Phosphatase 195 U/L (45-117) H 04/27/20 05:25 B-Natriuretic Peptide 351.0 pg/mL (0-100) H 05/10/20 05:25 Total Protein 7.1 g/dL (6.4-8.2) 04/27/20 05:25 Albumin 2.7 g/dL (3.2-5.0) L 04/27/20 05:25 Globulin 4.4 g/dL (2.2-4.2) H 04/27/20 05:25 Albumin/Globulin Ratio 0.6 RATIO (0.9-2.4) L 04/27/20 05:25 Vitamin D 25-Hydroxy 17.9 ng/mL 05/09/20 07:45 TSH 1.13 uIU/mL (0.358-3.74) 05/09/20 07:45 PTH Intact 56.8 pg/mL (18.4-80.1) 05/09/20 07:45 Vancomycin Trough 17.0 ug/mL (5.0-15.0) H 05/07/20 23:40 Random Vancomycin 13.8 ug/mL (0.0-15.0) 04/29/20 08:45 Digoxin 0.43 ng/mL (0.80-2.00) L 05/09/20 07:45 COVID-19 (JOURDAN) Not Detected (Not Detect) 05/09/20 18:35 Microbiology 05/04/20 Unknown Stool Stool Occult Blood (COLIN) - Final -negative 04/27/20 08:45 Stool Stool Occult Blood (COLIN) - Final -negative none Operations: None Procedures: None Summary of Care Provided: Lakeisha Fishman is a 69 year old Confucianism woman with a past medical history of mitral valve and tricuspid valve repair, maze procedure, history of left atrial appendage closure device, longstanding persistent atrial fibrillation, history of GI bleed, chronic anticoagulation with warfarin, polycythemia vera ( she is followed by Dr. Neves), secondary pulmonary hypertension with recent echocardiogram at [facility] showing a right ventricular systolic pressure of 70 mmHg, essential hypertension and history of a total hysterectomy who presented to the [facility] emergency department on 04/14/2020 after a fall. She tells me that she does not remember falling. She felt dizzy and the next thing she knew she was on the ground. Work-up at [facility] showed a left anterior acetabular fracture, left superior and inferior pubic rami fractures and a left nondisplaced clavicle fracture. She was transferred to [facility] because of the acetabular fracture.....no one at [facility] does the type of surgery required for an acetabular fracture. No surgery was done at [facility]. While she was there she had AF with RVR and she was started on Dig in addition to the beta matt she was already taking. The metoprolol was increased to TID. An ECHO showed a mobile mass on the MV and it is unknown if this is a clot or a vegetation. Blood cultures were negative. She was started on Rocephin and Vancomycin and a PICC was placed. A CT scan of the head and neck showed severe foraminal stenosis at C4-C5. MRI of the neck showed increased signal in the right aspect of the cord at C4-5 and C5-6. This is presumed to be a cord contusion. An incidental finding was a 2.2 CM thyroid nodule which will need followed as an OP. She was transferred to the in acute rehab unit at [facility] on 04/26/2020 for greater than 3 hours of therapy daily to restore her at or near her prior level of independence. Lab showed a low Vitamin D level at 17.9. TSH and T4 were within normal limits. PTH was within normal limits. Iron studies were consistent with iron deficiency however she has polycythemia vera and periodically requires phlebotomy so this is not treated. Creatinine has been stable at 0.77. The BUN is elevated out of proportion to the creatinine despite being well-hydrated. Orthostatic vital signs were negative. Platelets white blood cell count are persistently elevated secondary to polycythemia vera. Prior to discharge her INR was 2.4 which is within the therapeutic range. BNP is mildly elevated with no physical evidence of congestive heart failure and this is likely due to pulmonary hypertension with dilated RV. The last vancomycin trough was on 05/07/2020 and it was 17. Digoxin level prior to discharge was 0.43 and the patient's resting heart rate was increased so the dose was adjusted. Hemoccult stool was checked twice while in rehab and they were both negative. On physical examination at admission Lakeisha had coarse crackles in both lung bases which I suspect is secondary to scarring or fibrosis. There has been no change during her admission to rehab. She is not tachypneic and she has no complaints of orthopnea or dyspnea on exertion. She denies palpitations and lightheadedness. She has no murmurs since the tricuspid and mitral valve repairs but remains in atrial fibrillation with an irregular irregular rate. She has had no rub and no gallop. She has had no peripheral edema while in rehab. She is able to lie flat in bed without shortness of breath. Lakeisha did very well in therapy and prior to DC she is ambulating with a straight cane and no loss of balance. She is able to do all her grooming, toileting and bathing with standby assist. She has been discharged from speech therapy and cognition/memory has improved. Unfortunately her son and [id number] attended an Confucian[employer] wedding and are now both infected with COVID-19. They are currently in a 14-day quarantine. Lakeisha will need to a nursing home facility to continue the intravenous antibiotics since she will be unable to have these at home. She will continue vancomycin 750 mg IV every 12 hours and Rocephin 2 g IV every 12 hours till the stop date which is 06/02/2020. Her son, [id number] and the daughter that lives with her must be Covid negative prior to Lakeisha returning home. She will need follow up for 2.2 cm thyroid nodule and I suggested she follow-up with endocrinology. She was referred to Dr. Anirudh Martinez. Lakeisha was given a requisition to obtain a DEXA following discharge from nursing home to better quantify the degree of bone loss. Was placed on a vitamin D supplement prior to discharge. While in nursing home she will need a weekly BMP, CBC, ESR, vancomycin trough, PT/INR and dig level. The results should be called or faxed to the office of Dr. Krish Crenshaw who will be following her. Alert, oriented x3, no apparent distress Lungs-persistent coarse crackles in the base with no wheezing Heart-irregular irregular with controlled ventricular response, no gallop Abdomen-soft, nontender, nondistended, no guarding with palpation, normal bowel sounds No peripheral edema Mucous membranes are moist This note was generated with [employer] dictation software. It may contain incorrect words, spelling, and punctuation that were not noted in checking the note before signing. Patient Problems: Active and Suspected Problems (Last Reviewed 04/28/20 @ 09:[address] aKt Nuñez, DO) Fracture of left inferior pubic ramus (Acute) Osteoporosis (Suspected) Pulmonary scarring (Suspected) She has persistent coarse crackles in the bases of both lungs that have been unchanged while she has been in rehab. Thyroid nodule (Acute) 2.2 cm discovered incidentally on CT scan of the cervical spine for C2 fracture. Will need follow-up Endocarditis (Acute) She has a floppy mass on the mitral valve and it is unknown if this is a clot or vegetation. Subdural hematoma (Acute) Stable Pelvic hematoma (Acute) Hemoglobin has been stable while in rehab. 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 Closed left clavicular fracture (Acute) Fracture of left superior pubic ramus (Acute) Left acetabular fracture (Acute) anterior acetabulum - Physical Exam Vitals/I&O's: Vital Signs Temp Pulse Resp BP Pulse Ox 98.5 F 104 H 16 128/81 H 94 05/10/20 09:23 05/10/20 12:04 05/10/20 10:00 05/10/20 09:23 05/10/20 10:00 Oxygen Delivery Method Room Air Weight: 137 lb 9.095 oz Body Mass Index (BMI) 25.2 Orthostatic Vital Signs Start: 05/04/20 23:21 Freq: Status: Active Protocol: Activity Type Activity Date Activity User E-Sign Co-Sign Detail Recorded Client Recorded Date Recorded By Document 05/05/20 07:04 WCM [id number] 05/05/20 07:05 WCM 05/05/20 07:04 Orthostatic Vitals Standing -Blood Pressure (90/60-120/80 mm Hg) 114/74 -Extremity Use Left Arm -Pulse Rate (60-100 beats/min) 93 Sitting -Blood Pressure (90/60-120/80 mm Hg) 124/77 H -Extremity Use Left Arm -Pulse Rate (60-100 beats/min) 90 Lying -Blood Pressure (90/60-120/80 mm Hg) 118/73 -Extremity Use Left Arm -Pulse Rate (60-100 beats/min) 79 Intake and Output for Last 24 Hours 05/08/20 05/09/20 05/10/20 23:59 23:59 23:59 Intake Total 2079.00 / 2079.00 3160 / 3160 735 / 735 Balance 2079.00 / 2079.00 3160 / 3160 735 / 735 Laboratory Results 05/09/20 18:35: COVID-19 (JOURDAN) Not Detected 05/10/20 05:25: PT 26.0 H, INR 2.4 05/10/20 05:25: B-Natriuretic Peptide 351.0 H Current Medications Acetaminophen (Tylenol) 650 mg PO Q6H PRN PRN PRN Reason: Pain Score 1-04/29 Last Admin: 05/07/20 22:01 Dose: 650 mg Documented by: Aspirin (Aspirin, Baby) 81 mg PO DAILY@0800 [facility] Last Admin: 05/10/20 08:19 Dose: 81 mg Documented by: Bisacodyl (Dulcolax) 10 mg RECTAL .PRN X 1 PRN PRN Reason: Constipation Cholecalciferol (Cholecalciferol (Vit D3) 1,000 Unit (25mcg)) 1,000 unit PO BID [facility] Last Admin: 05/10/20 08:19 Dose: 1,000 unit Documented by: Colchicine (Colchicine) 0.6 mg PO DAILY [facility] Last Admin: 05/10/20 08:27 Dose: 0.6 mg Documented by: Digoxin (Lanoxin) 125 mcg PO DAILY [facility] Last Admin: 05/10/20 09:58 Dose: 125 mcg Documented by: Furosemide (Lasix) 20 mg PO DAILY [facility] Last Admin: 05/10/20 08:19 Dose: 20 mg Documented by: Hydroxyurea (Hydrea) 500 mg PO DAILY [facility] Last Admin: 05/10/20 08:27 Dose: 500 mg Documented by: Ceftriaxone Sodium 2 gm/ (Sodium Chloride) 50 mls @ 100 mls/hr IV Q12 [facility] Last Infusion: 05/10/20 11:59 Dose: Infused Documented by: Sodium Chloride () 250 mls @ 15 mls/hr IV .[id number] PRN PRN Reason: Saline Flush Last Admin: 05/10/20 10:45 Dose: 15 mls/hr Documented by: Sodium Chloride () 250 mls @ 15 mls/hr IV .[id number] PRN PRN Reason: Saline Flush Last Infusion: 05/05/20 12:30 Dose: 0 mls/hr Documented by: Sodium Chloride () 250 mls @ 15 mls/hr IV .[id number] PRN PRN Reason: Additional IVPB Infusion Vancomycin IV Pharmacy to Dose (1 ea/ Sodium Chloride) 500 mls @ 250 mls/hr IV X1 PRN; Protocol PRN Reason: Rx to Dose Vancomycin HCl 750 mg/ Sodium (Chloride) 265 mls @ 250 mls/hr IV Q12H [facility] Last Admin: 05/10/20 11:57 Dose: 250 mls/hr Documented by: Lactobacillus Acidophilus (Acidophilus) 1 tablet PO BID [facility] Last Admin: 05/10/20 08:19 Dose: 1 tablet Documented by: Magnesium Hydroxide (Milk Of Magnesia) 30 ml PO .PRN X 1 PRN PRN Reason: Constipation Metoprolol Tartrate (Lopressor (Beta Matt)) 12.5 mg PO TID [facility] Last Admin: 05/10/20 06:01 Dose: 12.5 mg Documented by: Pantoprazole Sodium (Protonix) 40 mg PO DAILY [facility] Last Admin: 05/10/20 08:19 Dose: 40 mg Documented by: [facility] Last Admin: 05/10/20 08:19 Dose: 20 meq Documented by: Senna/Docusate Sodium (Senokot-S, Kita-Colace) 2 tablet PO BID [facility] Last Admin: 05/10/20 08:22 Dose: Not Given Documented by: Sodium Chloride () 10 - 40 ml IV UD PRN PRN Reason: SALINE FLUSH Last Admin: 05/10/20 09:59 Dose: 20 ml Documented by: Sodium Chloride () 10 - 40 ml IV UD PRN PRN Reason: SALINE FLUSH Tramadol HCl (Ultram) 50 mg PO Q6H PRN PRN PRN Reason: Pain Score 1-10/10 Last Admin: 04/27/20 13:33 Dose: 50 mg Documented by: Warfarin Sodium (Warfarin 5 Mg Tablet) 5 mg PO SuMoWeThSa@1700 [facility] Last Admin: 05/08/20 16:52 Dose: 5 mg Documented by: Warfarin Sodium (Warfarin 2.5 Mg Tablet) 2.5 mg PO TuFr@1700 [facility] Last Admin: 05/09/20 16:19 Dose: 2.5 mg Documented by: Home Medications: Medications to take at Discharge Hydroxyurea 500 mg PO DAILY 09/03/18 Metoprolol Tartrate 12.5 mg PO TID 04/26/20 Acetaminophen [Tylenol Tablet] 650 mg PO Q6H PRN PRN tab 05/10/20 Aspirin [Aspirin, Baby] 81 mg PO DAILY@0800 tab.chew 05/10/20 Bisacodyl [Dulcolax] 10 mg RECTAL .PRN X 1 PRN suppos. 05/10/20 Ceftriaxone 2 gm IV Q12 vial 05/10/20 Cholecalciferol (VIT D3) [Vitamin D3] 1,000 unit PO BID tab 05/10/20 Colchicine 0.6 mg PO DAILY tab 05/10/20 Digoxin 125 mcg PO DAILY #1 tab 05/10/20 Furosemide [Lasix] 20 mg PO DAILY tab 05/10/20 Lactobacillus Acidophilus [Acidophilus] 1 tab PO BID tab 05/10/20 Magnesium Hydroxide [Milk Of Magnesia] 30 ml PO .PRN X 1 PRN udc 05/10/20 Pantoprazole Sodium [Protonix] 40 mg PO DAILY tab 05/10/20 Potassium Chloride [K-Dur] 20 meq PO BIDCM tab 05/10/20 Vancomycin IV 750 mg IV Q12H #1 vial 05/10/20 Vancomycin IV Pharmacy to Dose 1 ea IV X1 PRN ea 05/10/20 Warfarin [Coumadin] 2.5 mg PO TuFr@1700 tab 05/10/20 Warfarin [Coumadin] 5 mg PO SuMoWeThSa@1700 tab 05/10/20 Following Prescriptions Were Given to Patient: Digoxin 125 mcg PO DAILY #1 tab Other Amb Orders: Dexa Bone Density Study Facility: [facility], Location: [facility] Primary Care Physician: Lobo Spann MD [Primary Care Provider] - Please follow up with your Primary Care Physician in: following discharge from SNF Please Follow Up With: Anirudh Martinez MD When: following DC from SNF to follow up the thyroid nodule Disposition: Sn[facility] facility - [facility] Patient Condition:: Good Medical Necessity - Tobacco Use Smoking Status: Never smoker Tobacco Use: Non-smoker Meaningful Use Info Meaningful Use Diagnoses (Choose all that apply): None applicable Inpatient E&M: 16609 Disch Hosp
--- NOTE | 2020-05-10 12:33 | PHA.DC.MR ---
Pharmacy Service has performed discharge medication reconciliation for this patient. The patient's discharge medication list was reviewed for discrepancies and discrepancies were resolved. This [facility] spoke with Dr. Nuñez regarding duplicate hydroxyurea and received TORB to D/C. Home Medications Hydroxyurea 500 mg PO DAILY 09/03/18 Metoprolol Tartrate 12.5 mg PO TID 04/26/20 Acetaminophen [Tylenol Tablet] 650 mg PO Q6H PRN PRN tab 05/10/20 Aspirin [Aspirin, Baby] 81 mg PO DAILY@0800 tab.chew 05/10/20 Bisacodyl [Dulcolax] 10 mg RECTAL .PRN X 1 PRN suppos. 05/10/20 Ceftriaxone 2 gm IV Q12 vial 05/10/20 Cholecalciferol (VIT D3) [Vitamin D3] 1,000 unit PO BID tab 05/10/20 Colchicine 0.6 mg PO DAILY tab 05/10/20 Digoxin 125 mcg PO DAILY #1 tab 05/10/20 Furosemide [Lasix] 20 mg PO DAILY tab 05/10/20 Lactobacillus Acidophilus [Acidophilus] 1 tab PO BID tab 05/10/20 Magnesium Hydroxide [Milk Of Magnesia] 30 ml PO .PRN X 1 PRN udc 05/10/20 Pantoprazole Sodium [Protonix] 40 mg PO DAILY tab 05/10/20 Potassium Chloride [K-Dur] 20 meq PO BIDCM tab 05/10/20 Vancomycin IV 750 mg IV Q12H #1 vial 05/10/20 Vancomycin IV Pharmacy to Dose 1 ea IV X1 PRN ea 05/10/20 Warfarin [Coumadin] 2.5 mg PO TuFr@1700 tab 05/10/20 Warfarin [Coumadin] 5 mg PO SuMoWeThSa@1700 tab 05/10/20
--- NOTE | 2020-05-10 13:14 | NURSING ---
Report called to [facility], spoke with nurse Castellanos
[2020-05-10 15:46] LABS: Pathologist Review Reviewed
== END 2020-05-10 13:30 | disposition skilled nursing facility (03) | DRG 560 ==
PROVIDERS: Internal Medicine Infectious Disease; Admitting Provider Internal Medicine; PCP Family Medicine; Referring Provider Internal Medicine; Visit Provider Internal Medicine
DX: S32.512D Fracture of superior rim of left pubis, subsequent encounter for fracture with routine healing (principal); I48.11 Longstanding persistent atrial fibrillation; S42.002D Fracture of unspecified part of left clavicle, subsequent encounter for fracture with routine healing; S32.492D Other specified fracture of left acetabulum, subsequent encounter for fracture with routine healing; W19.XXXD Unspecified fall, subsequent encounter; I10 Essential (primary) hypertension; D45 Polycythemia vera; I27.29 Other secondary pulmonary hypertension; M48.02 Spinal stenosis, cervical region; E04.1 Nontoxic single thyroid nodule; D50.9 Iron deficiency anemia, unspecified; Z79.01 Long term (current) use of anticoagulants; S06.5X9D Traumatic subdural hemorrhage with loss of consciousness of unspecified duration, subsequent encounter; Z86.718 Personal history of other venous thrombosis and embolism; E55.9 Vitamin D deficiency, unspecified
CPT/HCPCS: 36415; 80048; 80053; 80162; 80202; 82274; 82306; 82565; 82728; 83540; 83550; 83735; 83880; 83970; 84100; 84443; 85025; 85027; 85610; 85652; 87635; 92507; 92523; 97110; 97116; 97162; 97166; 97530; 97535; 97802; J7050; A4216; J0696; U0003

== ENCOUNTER → 2020-06-08 11:27 | Outpatient (CLI) | payer OTHER, SELFPAY ==
[2020-06-08 10:38] VITALS: BMI 25.0
[2020-06-08 12:38] LABS: Hematocrit 31.8 % (37-47); Hemoglobin 8.6 g/dL (12.0-15.0); Mean Corpuscular Hgb 22.8 pg (27.0-32.0); Mean Corpuscular Volume 84.4 fL (81-99); POSITIVE COUNT YES; POSITIVE MORPHOLOGY YES; Platelet Count 353 K/mm3 (150-450); RBC Distribution Width CV 22.7 % (11.6-14.6); RBC Distribution Width SD 63.7 fl (35.1-43.9); Red Blood Count 3.77 M/mm3 (4.2-5.4); White Blood Count 23.3 K/mm3 (4.4-11.0)
[2020-06-08 12:40] LABS: International Normalized Ratio 1.4; Prothrombin Time (Protime)PT. 17.1 SECONDS (11.7-14.9)
[2020-06-08 12:44] LABS: Differential Indicated MANUAL DIFF
[2020-06-08 12:56] LABS: Anion Gap 3 (5-15); BUN 18 mg/dL (7-18); BUN/Creat Ratio 24.5 RATIO (10-20); Calcium,Total 8.8 mg/dL (8.5-10.1); Chloride 106 mmol/L (98-107); Creatinine, Serum 0.74 mg/dL (0.55-1.02); EST Glomerular Filtration Rate 83 mL/min (>60); Est Glom Filt Rate - Afr Amer 101 mL/min (>60); Glucose 76 mg/dL (74-106); Potassium 4.2 mmol/L (3.5-5.1); Sodium Level 139 mmol/L (136-145)
[2020-06-08 13:13] LABS: Digoxin Level 1.01 ng/mL (0.80-2.00)
[2020-06-08 13:14] LABS: Eosinophil 6 % (0-5); Lymphocyte 3 % (19-41); Monocyte 6 % (0-10); Myelocyte 1 (0-0); Neutrophil-Segmented 84 % (47-70); Total Cells Counted 100 (MANUAL DIFF)
[2020-06-08 13:15] LABS: Anisocytosis 1+; Platelet Estimate ADEQUATE (ADEQ); Red Cell Morphology N CHROM NORMAL (NORM C&C)
[2020-06-08 13:16] LABS: Absolute Neutrophil Count 19.6 X10^3/uL (2.0-7.7)
[2020-06-09 13:46] LABS: Pathologist Review Reviewed
== END ==
PROVIDERS: PCP Family Medicine; Referring Provider Internal Medicine Cardiovascular Disease; Visit Provider Internal Medicine Cardiovascular Disease
DX: I48.11 Longstanding persistent atrial fibrillation (principal); I10 Essential (primary) hypertension; I33.0 Acute and subacute infective endocarditis; Z98.890 Other specified postprocedural states
CPT/HCPCS: 36415; 80048; 80162; 85025; 85610

== ENCOUNTER → 2020-08-08 14:32 | Outpatient (CLI) | payer OTHER, SELFPAY ==
[2020-06-08 10:38] VITALS: BMI 25.0
[2020-08-08 14:58] LABS: International Normalized Ratio 1.4; Prothrombin Time (Protime)PT. 16.8 SECONDS (11.7-14.9)
== END ==
PROVIDERS: PCP Family Medicine; Referring Provider Internal Medicine Hematology & Oncology; Visit Provider Internal Medicine Hematology & Oncology
DX: I48.11 Longstanding persistent atrial fibrillation (principal)
CPT/HCPCS: 85610

== ENCOUNTER → 2020-09-13 11:11 | Outpatient (CLI) | payer OTHER, SELFPAY ==
[2020-09-13 10:42] VITALS: BMI 24.8
[2020-09-13 11:36] LABS: Prothrombin Time Fingerstick 16.5 SEC (11.9-14.4)
== END ==
PROVIDERS: PCP Family Medicine; Referring Provider Physician Assistant Medical; Visit Provider Physician Assistant Medical
DX: I48.11 Longstanding persistent atrial fibrillation (principal)
CPT/HCPCS: 36416; 85610

== ENCOUNTER → 2021-01-01 13:18 | Outpatient (CLI) | payer OTHER, SELFPAY ==
[2020-12-22 15:43] VITALS: BMI 26.6
== END ==
PROVIDERS: PCP Family Medicine; Referring Provider Physician Assistant Medical; Visit Provider Physician Assistant Medical
DX: I48.92 Unspecified atrial flutter (principal)
CPT/HCPCS: 93225; 93226

== ENCOUNTER → 2021-03-19 15:19 | Outpatient (CLI) | payer OTHER, SELFPAY ==
[2021-03-19 17:04] LABS: Hematocrit 43.8 % (37-47); Hemoglobin 12.4 g/dL (12.0-15.0); Mean Corp Hgb Conc 28.3 g/dL (32-36); Mean Corpuscular Hgb 24.6 pg (27.0-32.0); Mean Corpuscular Volume 86.9 fL (81-99); Mean Platelet Vol. 11.3 fl (6.2-12.0); Platelet Count 410 K/mm3 (150-450); RBC Distribution Width CV 18.9 % (11.6-14.6); RBC Distribution Width SD 57.6 fl (35.1-43.9); Red Blood Count 5.04 M/mm3 (4.2-5.4); White Blood Count 21.1 K/mm3 (4.4-11.0)
[2021-03-19 17:47] LABS: Anion Gap 7 (5-15); BUN 28 mg/dL (7-18); BUN/Creat Ratio 31.9 RATIO (10-20); Calcium,Total 8.8 mg/dL (8.5-10.1); Chloride 105 mmol/L (98-107); Creatinine, Serum 0.88 mg/dL (0.55-1.02); EST Glomerular Filtration Rate 68 mL/min (>60); Est Glom Filt Rate - Afr Amer 82 mL/min (>60); Glucose 75 mg/dL (74-106); Sodium Level 138 mmol/L (136-145)
== END ==
PROVIDERS: PCP Family Medicine; Visit Provider Physician Assistant Medical
DX: I48.92 Unspecified atrial flutter (principal); Z98.890 Other specified postprocedural states
CPT/HCPCS: 36415; 80048; 85027

== ENCOUNTER 2021-03-20 10:22 | Day surgery (SDC) | payer SELFPAY, OTHER ==
[2020-12-22 15:43] VITALS: BMI 26.6
[2021-03-19 16:20] VITALS: BMI 27.1
--- NOTE | 2021-03-19 17:18 | PCM.HP.BLA ---
History and Physical Date of Admission: 03/20/21 [facility] [id number] [place], [place] [phone] OFFICE VISITDate of Service: 03/19/21 MR#:[id number]: HAWK FERRER ARep #:[id number] Provider: VALERY Arechiga/Sex: 70/F [facility] HPI History of Present Illness Details: Mrs. Ferrer is a very pleasant 70-year-old white female, nondiabetic, with a history of systemic hypertension, pulmonary hypertension, atrial fibrillation was previously on anticoagulation therapy but then needed to stop it due to lower GI bleeding (colitis), polycythemia (evaluted by Dr. Neves), status post mitral valve repair and tricuspid valve repair (2019), who is status post mechanical fall with concerns of a subdural hematoma and during that evaluation concerns of findings potentially related to infectious endocarditis treated with long-term antibiotic therapy who presents for outpatient cardiovascular follow-up. Her INR is managed by her PCP, DR. Spann in [facility] Pt sts that overall she is feeling okay. She does note SOB with exertion with inclines. She feels better than last year. EKG today demonstrates Atrial flutter with a HR in the 120s. She is unaware of this. Intake Vital Signs 03/19/21 14:24 Height 5 ft 2 in Weight: 148 lb BMI 27.1 BP 118/80 Blood Pressure Location Lt brachial Position Sitting Respiration 18 Pulse 100 Pulse Source Monitor Pulse Oximetry (%) 92 Intake Visit Reasons: NEEDS DCCV PER M.S. Tooling Manager Required: No Is patient in pain?: No Allergies egg Adverse Reaction (Intermediate, Verified 03/19/21 14:24) GI upset chocolate Adverse Reaction (Intermediate, Uncoded 12/22/20 15:46) GI upset Medications hydroxyurea 500 mg PO DAILY 09/03/18 [History Confirmed 03/19/21] acetaminophen 650 mg PO Q6H PRN PRN tab 05/10/20 [Rx Confirmed 03/19/21] acidophilus-pectin, citrus 1 tab PO BID tab 05/10/20 [Rx Confirmed 03/19/21] cholecalciferol (vitamin D3) 1,000 unit PO BID tab 05/10/20 [Rx Confirmed 03/19/21] warfarin 5 mg tablet See Rx Instructions PO DAILY 12/22/20 [History Confirmed 03/19/21] metoprolol tartrate 25 mg tablet 12.5 mg PO TID #270 tab 02/27/21 [Rx Confirmed 03/19/21] [facility] Medical History (Updated 12/22/20 @ 16:35 by Kasey Rodgers PA, PA) Acute respiratory failure with hypoxia Atrial flutter Community acquired pneumonia Essential hypertension History of GI bleed Longstanding persistent atrial fibrillation Nonrheumatic mitral valve regurgitation Nonrheumatic tricuspid (valve) insufficiency Polycythemia vera Secondary pulmonary hypertension Severe sepsis Surgical History H/O maze procedure (09/27/19) History of right and left heart catheterization (08/18/19) History of total hysterectomy History of transesophageal echocardiography (CASSANDRA) (08/18/19) Presence of left atrial appendage closure device composed of nickel-titanium alloy with polyethylene terephthalate membrane (09/27/19) S/P mitral valve repair (09/27/19) S/P tricuspid valve repair (09/27/19) Family History Father , from colon cancer S/P CABG (coronary artery bypass graft) Colon cancer CAD (coronary artery disease) Mother Myocardial infarction CAD (coronary artery disease) Social History Smoking Status: Never smoker alcohol intake: never substance use type: does not use caffeine: Yes Type: coffee Number of servings: 2 ROS Const Const: Positive for other (Feels more energetic); Negative for fatigue, weakness, headache(s), frequent falls, difficulty sleeping or excessive sweating Eyes Eyes: Negative for loss of peripheral vision, transient loss of vision, blurry vision, double vision or tunnel vision ENT ENT: Positive for balance problems; Negative for headache(s), dizziness or Nosebleed/epistaxis Cardio Chest Pain: No Palpitations: Yes feels like its: fast (Occasionally with stairs) Edema: None Muscle aches with walking: None Resp Respiratory: Positive for SOB with activity (Occasionally); Negative for SOB at rest, SOB orthopnea\SOB lying down, Cough or paroxysmal nocturnal dyspnea GI GI: Negative nausea, vomiting, heartburn or black,tarry stools : Negative for hematuria Musc Musc: Positive for balance problems; Negative for muscle aches/ myalgia, muscle weakness or joint pain Skin Skin: Negative non-healing lesions, rash or unusual bruising Neuro Neuro: Positive for lightheadedness (Occasionally when standing up too quickly); Negative for dizziness, near syncope, syncope, frequent falls, headache(s), weakness, blurry vision, double vision or lack of coordination Gray Hematologic/Lymphatic: Negative for easy bleeding or easy bruising Endo Endo: Negative for fatigue, excessive sweating or increased thirst/drinking Psych Psych: Negative for anxiety or depression Allergy Allergy/Immunology: Negative for hives and Negative for rash Cardiology Exam Const Appearance: cooperative, healthy appearing, comfortable, no acute distress and well developed Orientation: alert, awake and oriented x3 Head Head: normal to inspection Ears: hearing grossly normal bilaterally Nose: external nose normal Face and Sinus: face symmetric Mouth: oral mucosae normal, lip normal and moist mucous membranes Eyes General: appearance normal, both eyes and all related structures Eyelids: eyelids normal Conjunctivae: conjunctivae normal Pupils: PERRL EOM: EOM intact bilaterally Neck Neck: normal visual inspection and trachea midline; Negative no JVD Carotids: Negative bruit Chest Chest inspection: normal inspection of the chest Auscultation: Bilateral: Clear to Auscultation Cardio Palpation: normal PMI Rate: tachycardic Rhythm: irregularly irregular Heart sounds: S1 normal, S2 normal and murmur; Negative rub or gallop Murmur: Grade 2/6 and mid systolic GI GI: soft, no hepatosplenomegaly and bowel sounds present Neuro General: patient alert, patient awake, patient oriented x3 and CN's II-XI intact bilaterally Extremities Pulses: Normal: Right Posterior Tibial Pulse, Left Posterior Tibial Pulse, Right Radial Pulse and Left Radial Pulse Lower Extremity Edema: None: Bilateral Psych Psychological: normal affect Assessment and Plan Assessment and Plan (1) Atrial flutter: Status: Acute Orders: Orders: 12 Lead EKG performed by BMS Today CBC-Complete Blood Cnt No Diff Today Basic Metabolic Profile (BMP) Today Plan - Kasey RASMUSSEN, PA: Pt does have increase SOB with exertion, feel that she would benefit from a cardioversion. Her INR has been therapeutic for at least 30 days. She is scheduled to have an cardioversion tomorrow. (2) S/P tricuspid valve repair: Status: Chronic Comment: [place] MC3 Tricuspid ring size 30 Dr. Darion Steinberg [facility] Orders: Orders: Basic Metabolic Profile (BMP) Today Plan - Kasey RASMUSSEN, PA: Stable, will continue to monitor by history, exam and echocardiograms as deemed appropriate. Patient will continue with antibiotic prophylaxis per AHA guidelines. (3) S/P mitral valve repair: Status: Chronic Comment: Stephanie Mitral Ring #35 Dr. Darion Steinberg CC Orders: Orders: Basic Metabolic Profile (BMP) Today Plan - Kasey RASMUSSEN, PA: Stable, will continue to monitor by history, exam and echocardiograms as deemed appropriate. Patient will continue with antibiotic prophylaxis per AHA guidelines. Plan Details Follow Up: 03/19/21 (keep as is) 03/19/21 (please make 1 week f/u EKG appt on 03/27- she has other appts at [facility] shiv that day) Coding Level of Care Code Off vis,est,level 3 Diagnoses Atrial flutter I48.92 S/P tricuspid valve repair Z98.890 S/P mitral valve repair Z98.890 Coding Level of Care Code Off vis,est,level 3 Diagnoses Atrial flutter I48.92 S/P tricuspid valve repair Z98.890 S/P mitral valve repair Z98.890 Supplemental Info Supplemental Information Cardiac cath: 08/18/2019 CONCLUSIONS Normal coronary arteries Perserved Left Ventricular systolic function with normal EDP Normal LV size, wall motion,and systolic function LVEF: by LV gram 65 % Mitral Valve Insufficiency Severe The patient has pulmonary hypertension which is severe. Right heart pressures - severely elevated RECOMMENDATIONS Management as per referring [employer] Surgery consult for valvular disease Increase lasix to 40mg po daily. DESCRIPTION OF PROCEDURE The patient arrived to the procedure lab. The risks and benefits of the procedure as well as a full description of our services here and current unavailability of surgical backup were fully explained to the patient and/or their significant other prior to the catheterization. The Timeout was completed, verifying the correct patient and procedure. The patient's procedural site was prepped and draped in the usual fashion. Local anesthetic was given subcutaneously to right groin region with Lidocaine 2%. Using a modified Seldinger technique, arterial access was obtained via the right femoral artery, a 4Fr sheath was inserted Venous access was obtained via the right femoral vein, a 7Fr sheath was inserted. A 7Fr thermal dilution catheter was inserted and right heart pressures were recorded, it was then advanced to PA position for cardiac outputs. Thermal dilution cardiac outputs were then recorded. O2 saturations were then obtained. Left Ventriculography was performed in WHITEHEAD projection using a 4 Fr. Pigtail catheter. LV to AO pullback pressures were then recorded. Simultaneous pressures were then recorded. The Thermal dilution catheter was then removed. Left Coronary Artery selective angiography was performed in multiple views using a 4 Fr. JL5 catheter. Right Coronary Artery selective angiography was then performed in multiple views using a 4 Fr. 3DRC catheter.The arterial sheath was pulled and manual compression applied until hemostasis is achieved. CORONARY ANGIOGRAPHY DOMINANCE: Right Dominant LEFT HEART ASSESSMENT Left Ventricular Ejection Fraction: by LV Gram 65 % Normal LV wall motion Normal Left Ventricular systolic function LVEDP: 10 mmHg RIGHT HEART ASSESSMENT Thermal CO: 4.89 Thermal CI: 2.98 Zainab CO: 3.1 Zainab CI: 1.89 PW: /36 20 PA: 74/34 47 RV: 72/3 16 RA: /22 18 PVR: 442 Right Heart pressures - elevated Pulmonary Hypertension Severe LEFT MAIN: Angiographically normal LEFT ANTERIOR DESCENDING ARTERY: Angiographically normal CIRCUMFLEX ARTERY: Angiographically normal RIGHT CORONARY ARTERY: Angiographically normal VALVE FINDINGS: Mitral Valve Insufficiency - Grade 4 Echocardiogram: 11/17/2019 Interpretation Summary Moderate eccentric left ventricular hypertrophy. The estimated ejection fraction is 65 %. Unable to assess diastolic dysfunction due to arrhythmia. Severely dilated right ventricle. Mild to moderate global right ventricular systolic dysfunction. The left atrium is severely enlarged. The right atrium is severely enlarged. Status post mitral valve repair with annuloplasty ring. No mitral valve insufficiency. Peak transmitral valve gradient 11 mmHg. Mean transmitral valve gradient 5 mmHg. An annuloplasty ring is noted in the tricuspid position. Unable to estimate RV systolic pressure due to insufficient tricuspid regurgitant envelope. No tricuspid valve insufficiency. Small to moderate, predominately posterior pericardial effusion. There are no echocardiographic indications of cardiac tamponade. Compared to echo report from an outside facility dated 10/14/2019, LV function has remained the same, the noted large posteriorly located pericardial effusion now appears to be small to moderate without evidence of RV collapse. Pt appears to be in atrial fibrillation. Open heart surgery: [facility]: 09-27-2019: Mitral valve repair Tricuspid valve repair Maze procedure Labs: No Data to Display Diagnostics: Electrocardiogram Pulmonary: No Data to Display 03/19/21 1520<Electronically signed by Kasey RASMUSSEN>Date Kasey RASMUSSEN Cosigner Signature:Date (if applicable) CC: Dr. Lobo Spann MD ~ Assessment & Plan Addt'l Comments I have re-examined the patient. There are no clinical changes since date of exam.
[2021-03-20 10:35] LABS: INR Fingerstick 2.2; Prothrombin Time Fingerstick 25.4 SEC (11.9-14.4)
--- NOTE | 2021-03-20 12:02 | CARDIOVERS ---
Cardioversion Cardioversion: Date: 03-20-2021 Procedure: Synchronized Biphasic DC Cardioversion Indications: Atrial fibrillation Consent: Per the Patient Anesthesia: per Dr. Hirsch of pulmonology and critical care medicine with propofol 40 mg IV push total Procedure: Synchronized Biphasic DC Cardioversion: 200 J x 1: Result: Sinus rhythm; PACs; PVCs Complications: no apparent complications This note was generated with BookBottlesation software. It may contain incorrect words, spelling, and punctuation that were not noted in checking the note before signing.
--- NOTE | 2021-03-20 12:18 | PRO.PCM_ITS ---
Assessment & Plan Assessment/Plan (1) Atrial flutter: (2) Pulmonary scarring: (3) H/O maze procedure: (4) S/P mitral valve repair: (5) Secondary pulmonary hypertension: (6) Polycythemia vera: Procedure Report Date of Procedure: 03/20/21 CONSCIOUS SEDATION REPORT BRIEF HISTORY OF PRESENT ILLNESS: The patient is a 70-year-old female who presented to [facility] for an elective outpatient cardioversion due to underlying atrial fibrillation. The patient reports no PO intake since midnight, but is currently therapeutic on anticoagulation. The patient does not have a history of obstructive sleep apnea. The patient reports no history of smoking and COPD. The patient denies any recent constitutional symptoms such as fevers, chills, nausea or vomiting. The patient denies previous applicable anesthetic complications. Patient's INR on the day of testing was 2.2. Last known ejection fraction was 65%. Patient has not had a previous cardioversion. PHYSICAL EXAMINATION: VITAL SIGNS: Reviewed and were acceptable. GENERAL: The patient is a female, in no apparent distress, speaking in full sentences. HEENT: Normocephalic, atraumatic. Mucous membranes are moist and pink. Good mouth opening noted. Trachea is midline. Good neck mobility. MP II CHEST: S1, S2 irregularly irregular. No murmurs, rubs or gallops were noted. LUNGS: Clear to auscultation bilaterally without appreciable wheezes, rales or rhonchi. ABDOMEN: Soft, nontender, nondistended. Positive bowel sounds. EXTREMITIES: There is no clubbing, cyanosis or edema. ASA Class: II DESCRIPTION OF PROCEDURE: After confirmation of informed consent, the patient's anesthesia plan was reviewed in detail. Propofol was chosen. Risks and benefits were reviewed and the patient agreed to proceed. At 11:47 AM, the patient was given 40 mg of propofol. The patient achieved an appropriate level of sedation and received 1 attempt synchronized cardioversion, at [address] Townsend at the bedside. This was successful in achieving normal sinus rhythm. The patient was monitored until 12:02 PM, at which time the patient reached their baseline mental status and function. The patient tolerated the procedure well. COMPLICATIONS: None ESTIMATED BLOOD LOSS: None RECOMMENDATIONS: Okay to recover in usual fashion. Procedures Pulmonary 9xxxx: [id number] Con Sedation
== END 2021-03-20 13:12 | disposition home or self-care (01) ==
LOC: CLSP 10:25
PROVIDERS: PCP Family Medicine; Referring Provider Internal Medicine Cardiovascular Disease; Visit Provider Internal Medicine Cardiovascular Disease
DX: I48.91 Unspecified atrial fibrillation (principal); I48.92 Unspecified atrial flutter; J98.4 Other disorders of lung; I27.29 Other secondary pulmonary hypertension; D45 Polycythemia vera; I10 Essential (primary) hypertension; I34.0 Nonrheumatic mitral (valve) insufficiency; Z79.01 Long term (current) use of anticoagulants
CPT/HCPCS: 36416; 85610; 92960; 93005; J7040

== ENCOUNTER 2021-10-01 15:00 | Outpatient (CLI) | payer SELFPAY, OTHER ==
--- NOTE | 2021-10-01 15:04 | ECHOD_ITS ---
Reason For Study: S/P VALVE REPAIR Procedure This was a 2D Doppler, Color Flow transthoracic echocardiogram. The exam was of adequate technical quality. Exam performed in department. Left Ventricle Normal LV size. Left ventricular systolic function is normal. The estimated ejection fraction is 65 %. Diastolic function is indeterminate. No regional wall motion abnormalities noted. Right Ventricle Mildly dilated right ventricle. Normal systolic function. Atria The left atrium is severely enlarged. The right atrium is moderately enlarged. No doppler evidence for ASD. Mitral Valve Mild diffuse mitral valve thickening. An annuloplasty ring is noted in the mitral position. Trivial transvalvular insufficiency of the mitral valve. Tricuspid Valve Unable to estimate RV systolic pressure due to insufficient tricuspid regurgitant envelope. An annuloplasty ring is noted in the tricuspid position. Mild transvalvular insufficiency of the tricuspid valve. Aortic Valve Trisinus/trileaflet aortic valve. Pulmonic Valve The pulmonic valve is not well visualized. Trivial pulmonic valve insufficiency. Great Vessels Normal sized aortic root. Pericardium/Pleural No pericardial effusion. MMode/2D Measurements & Calculations LVIDd: 5.2 cm IVSd: 1.1 cm Ao root diam: 3.6 cm LVIDs: 3.4 cm LVPWd: 1.1 cm RVDd: 3.9 cm FS: 35.8 % LAV(MOD-bp): 128.5 ml LA A4 area: 30.6 cm2 LA dimension(2D): 5.8 cm LAV(MOD-bp) Indexed: 77.3 ml/m2 LAV(MOD-sp2): 136.8 ml LAV(MOD-sp4): 103.8 ml RA A4 area: 24.0 cm2 Doppler Measurements & Calculations MV E max jeff: 126.0 cm/sec Lat Peak E' Jeff: 12.6 cm/sec Med Peak E' Jeff: 6.8 cm/sec MV A max jeff: 39.4 cm/sec E/E' lat: 10.0 E/E' med: 18.5 MV E/A: 3.2 MV V2 max: 145.7 cm/sec Ao V2 max: 120.1 cm/sec LV V1 max: 89.9 cm/sec MV max P.5 mmHg Ao max P.8 mmHg LV V1 max P.2 mmHg MV V2 mean: 79.4 cm/sec MV mean P.1 mmHg MV V2 VTI: 25.5 cm PA V2 max: 70.5 cm/sec ECHO/Echo Complete Interpretation Summary Left ventricular systolic function is normal. The estimated ejection fraction is 65 %. Mildly dilated right ventricle. The left atrium is severely enlarged. The right atrium is moderately enlarged. An annuloplasty ring is noted in the mitral position. Mild diffuse mitral valve thickening. Trivial transvalvular insufficiency of the mitral valve. An annuloplasty ring is noted in the tricuspid position. Mild transvalvular insufficiency of the tricuspid valve. Trivial pulmonic valve insufficiency. Unable to estimate RV systolic pressure due to insufficient tricuspid regurgita nt envelope. Diastolic function is indeterminate. Ordering Physician: Kyle Townsend Referring Physician: Lobo Spann Performed By: Karey Hunt RDCS, RVT
== END 2021-10-01 23:59 | disposition home or self-care (01) ==
PROVIDERS: PCP Family Medicine; Referring Provider Internal Medicine Cardiovascular Disease; Visit Provider Internal Medicine Cardiovascular Disease
DX: I48.11 Longstanding persistent atrial fibrillation (principal); I10 Essential (primary) hypertension; Z98.890 Other specified postprocedural states
CPT/HCPCS: 93306

== ENCOUNTER → 2023-05-07 | Outpatient (CLI) | payer OTHER, SELFPAY ==
[2023-05-07 14:24] LABS: Hematocrit 39.7 % (37-47); Hemoglobin 11.3 g/dL (12.0-15.0); Mean Corp Hgb Conc 28.5 g/dL (32-36); Mean Corpuscular Hgb 27.5 pg (27.0-32.0); Mean Corpuscular Volume 96.6 fL (81-99); POSITIVE COUNT YES; POSITIVE MORPHOLOGY YES; Platelet Count 84 K/mm3 (150-450); RBC Distribution Width SD 77.9 fl (35.1-43.9); Red Blood Count 4.11 M/mm3 (4.2-5.4); White Blood Count 12.7 K/mm3 (4.4-11.0)
[2023-05-07 14:26] LABS: Differential Indicated MANUAL DIFF
[2023-05-07 14:48] LABS: BNP,B-Type NATRIURETIC PEPTIDE 574.1 pg/mL (0-100)
[2023-05-07 14:52] LABS: Anion Gap 4 (5-15); BUN 29 mg/dL (7-18); BUN/Creat Ratio 32.1 RATIO (10-20); Calcium,Total 8.8 mg/dL (8.5-10.1); Chloride 106 mmol/L (98-107); EST Glomerular Filtration Rate 65 mL/min (>60); Est Glom Filt Rate - Afr Amer 79 mL/min (>60); Glucose 115 mg/dL (74-106); Potassium 4.4 mmol/L (3.5-5.1); Sodium Level 138 mmol/L (136-145)
[2023-05-07 15:16] LABS: Anisocytosis 1+; Basophil 5 % (0-1); Eosinophil 4 % (0-5); Lymphocyte 17 % (19-41); Metamyelocyte 7 % (0-1); Monocyte 2 % (0-10); Myelocyte 1 % (0-0); Neutrophil-Band 2 % (0-5); Neutrophil-Segmented 62 % (47-70); Platelet Estimate MOD DEC (ADEQ); Red Cell Morphology N CHROM NORMAL (NORM C&C); Total Cells Counted 100 (MANUAL DIFF)
[2023-05-07 15:17] LABS: Absolute Neutrophil Count 8.1 X10^3/uL (2.0-7.7)
[2023-05-09 10:47] LABS: Pathologist Review Reviewed
== END | disposition home or self-care (01) ==
LOC: LAB 13:46
PROVIDERS: PCP Family Medicine; Referring Provider Nurse Practitioner Gerontology; Visit Provider Nurse Practitioner Gerontology
DX: R06.09 Other forms of dyspnea (principal)
CPT/HCPCS: 36415; 80048; 83880; 85025

== ENCOUNTER → 2023-05-16 | Outpatient (CLI) | payer OTHER, SELFPAY ==
[2023-05-16 10:28] LABS: Anion Gap 3 (5-15); BUN 29 mg/dL (7-18); BUN/Creat Ratio 29.1 RATIO (10-20); Calcium,Total 8.8 mg/dL (8.5-10.1); Chloride 104 mmol/L (98-107); EST Glomerular Filtration Rate 58 mL/min (>60); Est Glom Filt Rate - Afr Amer 70 mL/min (>60); Glucose 89 mg/dL (74-106); Potassium 3.9 mmol/L (3.5-5.1); Sodium Level 138 mmol/L (136-145)
[2023-05-16 10:35] LABS: BNP,B-Type NATRIURETIC PEPTIDE 621.6 pg/mL (0-100)
== END | disposition home or self-care (01) ==
LOC: LAB 09:12
PROVIDERS: PCP Family Medicine; Referring Provider Nurse Practitioner Gerontology; Visit Provider Nurse Practitioner Gerontology
DX: R06.09 Other forms of dyspnea (principal)
CPT/HCPCS: 36415; 80048; 83880

== ENCOUNTER → 2023-05-23 | Outpatient (CLI) | payer OTHER, SELFPAY ==
[2023-05-23 14:25] LABS: Anion Gap 5 (5-15); BUN 34 mg/dL (7-18); BUN/Creat Ratio 32.7 RATIO (10-20); Calcium,Total 8.7 mg/dL (8.5-10.1); Chloride 101 mmol/L (98-107); Creatinine, Serum 1.04 mg/dL (0.55-1.02); EST Glomerular Filtration Rate 55 mL/min (>60); Est Glom Filt Rate - Afr Amer 67 mL/min (>60); Glucose 118 mg/dL (74-106); Potassium 3.8 mmol/L (3.5-5.1); Sodium Level 136 mmol/L (136-145)
[2023-05-23 14:27] LABS: BNP,B-Type NATRIURETIC PEPTIDE 602.3 pg/mL (0-100)
== END | disposition home or self-care (01) ==
LOC: LAB 13:18
PROVIDERS: PCP Family Medicine; Visit Provider Nurse Practitioner Gerontology
DX: R06.09 Other forms of dyspnea (principal)
CPT/HCPCS: 36415; 80048; 83880

== ENCOUNTER → 2023-06-18 | Outpatient (CLI) | payer SELFPAY, OTHER ==
--- NOTE | 2023-06-18 12:36 | ECHOD_ITS ---
Reason For Study: Valve Replacement Eval, Afib Procedure This was a 2D Doppler, Color Flow transthoracic echocardiogram. Exam performed in department. Left Ventricle Normal LV size. Moderate concentric left ventricular hypertrophy. Left ventricular systolic function is lower limits of normal. The estimated ejection fraction is 50 %. No regional wall motion abnormalities noted. Right Ventricle Normal RV size. Normal systolic function. Atria The left atrium is mildly enlarged. The right atrium is moderately enlarged. Mitral Valve Status post mitral valve repair with annuloplasty ring. Tricuspid Valve Mild to moderate (1-2+) tricuspid valve insufficiency. Pulmonary artery systolic pressure is 41 mmHg. Aortic Valve Trisinus/trileaflet aortic valve. Pulmonic Valve Normal pulmonic valve. Mild (1+) pulmonic valve insufficiency. Great Vessels Normal aortic root. The pulmonary artery is normal size. The inferior vena cava is dilated. Pericardium/Pleural No pericardial effusion. MMode/2D Measurements & Calculations LVIDd: 4.6 cm IVSd: 1.4 cm Ao root diam: 3.6 cm LVIDs: 3.4 cm LVPWd: 1.5 cm RVDd: 4.7 cm FS: 25.4 % LAV(MOD-bp): 118.6 ml LVAd ap4: 19.2 cm2 LVAd ap2: 20.2 cm2 LAV(MOD-bp) Indexed: 73.8 ml/m2 LVLd ap4: 6.5 cm LVLd ap2: 6.2 cm LAV(MOD-sp2): 104.6 ml EDV(MOD-sp4): 48.4 ml EDV(MOD-sp2): 54.2 ml LAV(MOD-sp4): 110.6 ml EDV(sp4-el): 48.4 ml EDV(sp2-el): 55.5 ml LVAs ap4: 13.1 cm2 LVAs ap2: 13.5 cm2 LVLs ap4: 5.8 cm LVLs ap2: 5.9 cm ESV(MOD-sp4): 26.0 ml ESV(MOD-sp2): 27.3 ml ESV(sp4-el): 25.3 ml ESV(sp2-el): 26.1 ml EF(MOD-sp4): 46.3 % EF(MOD-sp2): 49.7 % EF(sp4-el): 47.8 % SV(MOD-sp4): 22.4 ml SV(MOD-sp2): 26.9 ml SV(sp4-el): 23.1 ml LA dimension(2D): 5.1 cm LA A4 area: 32.1 cm2 RA A4 area: 24.2 cm2 TAPSE: 1.6 cm Doppler Measurements & Calculations MV E max jeff: 101.1 cm/sec Lat Peak E' Jeff: 9.9 cm/sec Med Peak E' Jeff: 4.9 cm/sec E/E' lat: 10.2 E/E' med: 20.8 MV V2 max: 134.7 cm/sec Ao V2 max: 118.4 cm/sec LV V1 max: 98.9 cm/sec MV max P.3 mmHg Ao max P.7 mmHg LV V1 max P.9 mmHg MV V2 mean: 83.2 cm/sec Ao V2 mean: 91.1 cm/sec LV V1 mean P.4 mmHg MV mean P.2 mmHg Ao mean P.5 mmHg LV V1 mean: 75.8 cm/sec MV V2 VTI: 24.7 cm Ao V2 VTI: 18.4 cm LV V1 VTI: 16.1 cm AV (velocity ratio): 0.88 PA V2 max: 67.1 cm/sec TR max jeff: 288.4 cm/sec TR max P.3 mmHg ECHO/Echo Complete Interpretation Summary Normal LV size. Moderate concentric left ventricular hypertrophy. Status post mitral valve repair with annuloplasty ring. Left ventricular systolic function is lower limits of normal. The estimated ejection fraction is 50 %. Ordering Physician: Ashley Schultz Referring Physician: Lobo Spann Performed By: Yissel Fletcher RDCS, RVT
== END | disposition home or self-care (01) ==
LOC: CVS 12:35
PROVIDERS: PCP Family Medicine; Referring Provider Nurse Practitioner Gerontology; Visit Provider Nurse Practitioner Gerontology
DX: I48.92 Unspecified atrial flutter (principal); Z98.890 Other specified postprocedural states
CPT/HCPCS: 93306